=== PATIENT | female | born 1955 | race Caucasian/White ===

== ENCOUNTER 2018-10-08 10:40 | Emergency (ER) | payer MEDICARE, BC ==
[2018-10-08 10:53] VITALS: BP 142/79; PULSE 79; RESP 18; TEMP 98
[2018-10-08] MEDS ORDERED: MORPHINE SULFATE 4 MG/ML SYRINGE IM STA (11:14)
--- NOTE | 2018-10-08 11:24 | ED ---
Upper Extremity HPI - General Chief Complaint: Extremity Injury, Upper Stated Complaint: fall/arm pain Time Seen by Provider: 10/08/18 10:54 Source: patient, RN notes reviewed Mode of arrival: ambulatory Limitations: no limitations - History of Present Illness Initial Comments: 62-year-old female presented to emergency department with chief complaint of left arm pain. Patient states she was with her dog states that she tripped over her dog and fell onto some rocks last night. Denies any head injury. Patient complains of severe left shoulder pain is unable to move it. Patient denies any paresthesias. Patient denies any wrist, forearm pain. - Related Data Home Medications Medication Instructions Recorded Confirmed HYDROcodone/APAP 5-325MG [[place] 1 tab PO Q8H PRN 12/17/15 12/17/15 5-325] Metoprolol Tartrate [Lopressor] 25 mg PO BID 12/17/15 12/17/15 Omeprazole 40 mg PO BID 12/17/15 12/17/15 Simvastatin [Zocor] 40 mg PO HS 12/17/15 12/17/15 Warfarin [Coumadin] 1 mg PO SUMOTUWETHSA 12/17/15 12/17/15 Warfarin [Coumadin] 1.5 mg PO FR 12/17/15 12/17/15 Zolpidem [Ambien] 5 mg PO HS PRN 12/17/15 12/17/15 Previous Rx's Medication Instructions Recorded Albuterol Inhaler [Ventolin Hfa 1 - 2 puff INHALATION Q6HR #1 12/17/15 Inhaler] inhaler Albuterol Nebulized [Ventolin 2.5 mg INHALATION Q4H #60 nebu 12/17/15 Nebulized] Levofloxacin [Levaquin] 750 mg PO DAILY #7 tab 12/17/15 predniSONE 50 mg PO DAILY #5 tab 12/17/15 Allergies Allergy/AdvReac Type Severity Reaction Status Date / Time mold Allergy Wheezing Verified 07/23/16 17:05 Review of Systems ROS Statement: Those systems with pertinent positive or pertinent negative responses have been documented in the HPI. ROS Other: All systems not noted in ROS Statement are negative. Past Medical History Past Medical History: Asthma, Coronary Artery Disease (CAD), CVA/TIA, GERD/Reflux, Hypertension Additional Past Medical History / Comment(s): back pain History of Any Multi-Drug Resistant Organisms: None Reported Additional Past Surgical History / Comment(s): carotid endarectomy, abdominal, heart valve Past Psychological History: No Psychological Hx Reported Smoking Status: Current every day smoker Past Alcohol Use History: None Reported Past Drug Use History: None Reported General Exam Limitations: no limitations General appearance: alert, in no apparent distress Head exam: Present: atraumatic, normocephalic, normal inspection Neck exam: Present: normal inspection, full ROM. Absent: tenderness, meningismus, lymphadenopathy Respiratory exam: Present: normal lung sounds bilaterally. Absent: respiratory distress, wheezes, rales, rhonchi, stridor Cardiovascular Exam: Present: regular rate, normal rhythm, normal heart sounds. Absent: systolic murmur, diastolic murmur, rubs, gallop, clicks Extremities exam: Present: other (Left shoulder decreased range of motion, swelling, tenderness with palpation no distal humeral tenderness no forearm tenderness. Wrist is neurovascularly intact.) Skin exam: Present: warm, dry, intact, normal color. Absent: rash Course Vital Signs 10/08/18 10:50 Temperature 98 F Pulse Rate 79 Respiratory 18 Rate Blood Pressure 142/79 O2 Sat by Pulse 96 Oximetry - Reevaluation(s) Reevaluation #1: 10/08/18 11:23 Patient advised to remove ring on her hand. Patient states it is too tight removed. I did advise her that this could worsen causing neurovascular, rash to her finger advised that we remove a cut it off. Patient declines. Medical Decision Making - Medical Decision Making 62-year-old female presented for fall, left shoulder injury. Patient has a fracture of the humeral head, neck. Patient will be placed in a sling and follow-up with orthopedics tomorrow return parameters were discussed. Disposition Clinical Impression: Left humeral fracture Disposition: HOME SELF-CARE Condition: Stable Instructions (If sedation given, give patient instructions): Arm Fracture in Adults (ED) Additional Instructions: Please wear sling and follow-up with orthopedics. Please return to the Emergency Department if symptoms worsen or any other concerns. Is patient prescribed a controlled substance at d/c from ED?: No Referrals: Gemini Manuel MD [Primary Care Provider] - 1-2 days Giovani Dowd MD [STAFF PHYSICIAN] - 1-2 days Time of Disposition: 12:02
[2018-10-08] MEDS ORDERED: ACET/COD 300 MG/30 MG STARTER PACK 6 TAB BTL PO STA (11:48)
--- NOTE | 2018-10-08 11:56 | XR ---
Left shoulder HISTORY: Trauma and pain 3 views of the left shoulder There is an impacted proximal left humeral fracture. No dislocation. Left lung apex as visualized is normal. IMPRESSION: Proximal humeral fracture.
== END 2018-10-08 12:10 | disposition home or self-care (01) ==
LOC: EC 10:40
DX: S42.292A Other displaced fracture of upper end of left humerus, initial encounter for closed fracture (principal); I10 Essential (primary) hypertension; I25.10 Atherosclerotic heart disease of native coronary artery without angina pectoris; K21.9 Gastro-esophageal reflux disease without esophagitis; F17.200 Nicotine dependence, unspecified, uncomplicated; Z91.048 Other nonmedicinal substance allergy status; Z79.01 Long term (current) use of anticoagulants; Z79.899 Other long term (current) drug therapy; Z86.73 Personal history of transient ischemic attack (TIA), and cerebral infarction without residual deficits; Z95.2 Presence of prosthetic heart valve; W01.0XXA Fall on same level from slipping, tripping and stumbling without subsequent striking against object, initial encounter
CPT/HCPCS: 73030; 99283; 96372; J2270

== ENCOUNTER → 2019-02-22 | Outpatient (CLI) | payer MEDICARE ==
--- NOTE | 2019-02-22 15:35 | XR ---
Left shoulder HISTORY: Trauma 3-4 months prior, pain 3 views of the left shoulder correlated to left shoulder 10/08/2018 The previously identified fracture of the proximal left humerus is again noted, there is been some in terval healing. Persistent lucency present at the inferior margin of the neck of the left humerus is noted on the frontal view. No dislocation. Bone mineralization is reduced. Left lung apex as visualiz ed is normal. IMPRESSION: There has been some interval healing of patient's proximal left humeral fracture
== END | disposition home or self-care (01) ==
LOC: RADXRMAIN 09:42
PROVIDERS: ATTEND Internal Medicine
DX: S42.202D Unspecified fracture of upper end of left humerus, subsequent encounter for fracture with routine healing (principal)

== ENCOUNTER → 2019-02-22 | Outpatient (CLI) | payer MEDICARE, BC ==
--- NOTE | 2019-02-22 13:28 | US ---
EXAMINATION TYPE: US liver DATE OF EXAM: 02/22/2019 COMPARISON: NONE CLINICAL HISTORY: R94.5 Abnormal liver function tests. abnormal labs, NPO. Patient states she still has GB. EXAM MEASUREMENTS: Liver Length: 16.4 cm CBD: 0.5 cm CHD: 0.5 cm Right Kidney: 8.2 x 4.5 x 4.4 cm Pancreas: Tail obscured by overlying bowel gas Liver: wnl Gallbladder: Obscured by overlying bowel gas and not visualized Evidence for sonographic Toribio's sign: neg CBD: wnl CHD: wnl Right Kidney: wnl IMPRESSION: The liver appears homogeneous in echotexture despite abnormal liver function tests. Gallb ladder is not visualized, possibly due to contracted state. HIDA scan could be considered if there is concern for gallbladder pathology clinically.
== END | disposition home or self-care (01) ==
LOC: RADUSWWP 09:18
PROVIDERS: ATTEND Internal Medicine
DX: R94.5 Abnormal results of liver function studies (principal)
CPT/HCPCS: 76705

== ENCOUNTER 2019-06-18 17:11 | Inpatient (IN) | payer MEDICARE, BC ==
[2019-06-18] MEDS ORDERED: HYDROcodone/APAP 5-325MG 1 EACH TAB PO STA (18:20)
--- NOTE | 2019-06-18 18:23 | ED ---
Fall HPI - General Source: patient Mode of arrival: wheelchair <Bello Miranda - Last Filed: 06/18/19 20:08> <Mil Leal - Last Filed: 06/18/19 20:11> - General Chief Complaint: Fall Stated Complaint: Fell out of bed hip pain Time Seen by Provider: 06/18/19 18:01 - History of Present Illness Initial Comments: Patient is 63-year-old female presenting to emergency Department with a chief complaint of a fall. Patient reports she rolled out of bed and fell on the left side or body. Patient reports most of the pain is located at the left hip. Patient reports limited range of motion the left hip. Patient reports the pain is exacerbated with any motion and alleviated at rest. Patient reports she is unable to ambulate. Patient reports the pain is an 8 and throbbing. Patient denies any bruising or swelling at the left hip. Patient denies any head injury, loss of consciousness at time of incident, nausea or vomiting. Patient denies taking medication to alleviate the symptoms. Patient is on blood thinners. (Bello Miranda) - Related Data Home Medications Medication Instructions Recorded Confirmed HYDROcodone/APAP 5-325MG [[place] 1 tab PO Q8H PRN 12/17/15 12/17/15 5-325] Metoprolol Tartrate [Lopressor] 25 mg PO BID 12/17/15 12/17/15 Omeprazole 40 mg PO BID 12/17/15 12/17/15 Simvastatin [Zocor] 40 mg PO HS 12/17/15 12/17/15 Warfarin [Coumadin] 1 mg PO SUMOTUWETHSA 12/17/15 12/17/15 Warfarin [Coumadin] 1.5 mg PO FR 12/17/15 12/17/15 Zolpidem [Ambien] 5 mg PO HS PRN 12/17/15 12/17/15 Previous Rx's Medication Instructions Recorded Albuterol Inhaler [Ventolin Hfa 1 - 2 puff INHALATION Q6HR #1 12/17/15 Inhaler] inhaler Albuterol Nebulized [Ventolin 2.5 mg INHALATION Q4H #60 nebu 12/17/15 Nebulized] Levofloxacin [Levaquin] 750 mg PO DAILY #7 tab 12/17/15 predniSONE 50 mg PO DAILY #5 tab 12/17/15 Allergies Allergy/AdvReac Type Severity Reaction Status Date / Time mold Allergy Wheezing Verified 06/18/19 17:16 Review of Systems ROS Other: All systems not noted in ROS Statement are negative. <Bello Miranda - Last Filed: 06/18/19 20:08> ROS Other: All systems not noted in ROS Statement are negative. <Mil Leal - Last Filed: 06/18/19 20:11> ROS Statement: Those systems with pertinent positive or pertinent negative responses have been documented in the HPI. Past Medical History Past Medical History: Asthma, Coronary Artery Disease (CAD), CVA/TIA, GERD/Reflux, Hypertension Additional Past Medical History / Comment(s): back pain History of Any Multi-Drug Resistant Organisms: None Reported Additional Past Surgical History / Comment(s): carotid endarectomy, abdominal, heart valve Past Psychological History: No Psychological Hx Reported Smoking Status: Current every day smoker Past Alcohol Use History: None Reported Past Drug Use History: None Reported <Bello Miranda - Last Filed: 06/18/19 20:08> General Exam Limitations: no limitations General appearance: alert, in no apparent distress Head exam: Present: atraumatic, normocephalic, normal inspection Eye exam: Present: normal appearance Pupils: Present: normal accommodation ENT exam: Present: normal exam, normal oropharynx, mucous membranes moist, TM's normal bilaterally, normal external ear exam Neck exam: Present: normal inspection, full ROM Respiratory exam: Present: normal lung sounds bilaterally Cardiovascular Exam: Present: regular rate, normal rhythm, normal heart sounds Extremities exam: Present: normal inspection, tenderness (Tenderness at the left hip, proximal anterior aspect of the left lower extremity.), normal capillary refill, other (+2 ulnar and radial pulses bilaterally. +2 dorsalis pedis and posterior tibialis bilaterally. Patient is neruovascularly intact in the left lower [place].). Absent: full ROM (Unable to move left lower extremity), pedal edema, joint swelling, calf tenderness (Negative Homans bilaterally.) Back exam: Present: normal inspection, full ROM Neurological exam: Present: alert, oriented X3 Psychiatric exam: Present: normal affect, normal mood Skin exam: Present: warm, dry, intact, normal color <Bello Miranda - Last Filed: 06/18/19 20:08> Course <Mil Leal - Last Filed: 06/18/19 20:11> Vital Signs 06/18/19 06/18/19 17:18 19:33 Temperature 98 F Pulse Rate 83 85 Respiratory 18 18 Rate Blood Pressure 161/84 175/92 O2 Sat by Pulse 96 94 L Oximetry - Reevaluation(s) Reevaluation #1: 06/18/19 20:11 PA supervision: I personally evaluate this case and did discuss the case with Dr. Toribio as well as Dr. Stanton. Patient will be admitted. (Mil Leal) Medical Decision Making - Lab Data Result diagrams: 06/18/19 18:57 06/18/19 18:57 <Bello Miranda - Last Filed: 06/18/19 20:08> - Lab Data Result diagrams: 06/18/19 18:57 06/18/19 18:57 <Mil Leal - Last Filed: 06/18/19 20:11> - Medical Decision Making Patient is 63-year-old female presenting to the emergency room with a chief complaint of a fall. Physical examination is indicative of limited range of motion and pain on the left hip area. Patient neurovascularly intact in the left lower extremity. Patient is on blood thinners. Brain CT negative for acute pathologies. X-rays of the femur indicated a left lower leg fracture. Patient given analgesia. Labs indicated mild leukocytosis with elevated coags due to blood thinners. Patient will be admitted for further medical management. Case discussed with Dr. Leal. Admitting physician is Dr. Toribio. Dr. Manuel consulted. (Bello Miranda) - Lab Data Lab Results 06/18/19 06/18/19 06/18/19 Range/Units 18:57 18:57 18:57 WBC 14.7 H (3.8-10.6) k/uL RBC 4.61 (3.80-5.40) m/uL Hgb 13.0 (11.4-16.0) gm/dL Hct 40.1 (34.0-46.0) % MCV 87.0 (80.0-100.0) fL MCH 28.3 (25.0-35.0) pg MCHC 32.5 (31.0-37.0) g/dL RDW 15.5 (11.5-15.5) % Plt Count 175 (150-450) k/uL PT 14.3 H (9.0-12.0) sec INR 1.4 H (<1.2) APTT 32.4 H (22.0-30.0) sec Sodium 138 (137-145) mmol/L Potassium 4.0 (3.5-5.1) mmol/L Chloride 107 (98-107) mmol/L Carbon Dioxide 22 (22-30) mmol/L Anion Gap 9 mmol/L BUN 16 (7-17) mg/dL Creatinine 0.63 (0.52-1.04) mg/dL Est GFR (CKD-EPI)AfAm >90 (>60 ml/min/1.73 sqM) Est GFR (CKD-EPI)NonAf >90 (>60 ml/min/1.73 sqM) Glucose 133 H (74-99) mg/dL Calcium 9.2 (8.4-10.2) mg/dL Total Bilirubin 0.4 (0.2-1.3) mg/dL AST 38 H (14-36) U/L ALT 48 (9-52) U/L Alkaline Phosphatase 99 (38-126) U/L Total Protein 7.4 (6.3-8.2) g/dL Albumin 4.4 (3.5-5.0) g/dL Disposition Is patient prescribed a controlled substance at d/c from ED?: No Time of Disposition: 20:10 <Bello Miranda - Last Filed: 06/18/19 20:08> <Mil Leal - Last Filed: 06/18/19 20:11> Clinical Impression: Fracture of femoral neck, left, Fall Disposition: ADMITTED IP TO THIS HOSP Condition: Stable Instructions (If sedation given, give patient instructions): Fall Prevention (ED) Additional Instructions: Patient will be admitted Referrals: Gemini Manuel MD [Primary Care Provider] - 1-2 days
--- NOTE | 2019-06-18 18:53 | CT ---
EXAMINATION TYPE: CT brain rodríguez phillips DATE OF EXAM: 06/18/2019 COMPARISON: None HISTORY: fell out of bed today CT DLP: 1298.[address] of the brain was performed. The ventricles, basal cisterns and sulci overlying the cerebral convexities demonstrate moderate enla rgement. Right frontal insult noted. There is no evidence for intracranial hemorrhage or sulcal effacement. There is decreased attenuatio n about the periventricular white matter and deep white matter of both cerebral hemispheres, compatib le with chronic small vessel ischemia. No mass effects are seen. If symptoms persist consider MRI. Osseous calvarium is intact. IMPRESSION: 1. Age related atrophic and chronic small vessel ischemic change without acute intracranial process seen at this time. CT Cervical Spine: Unenhanced CT of the cervical spine was performed with bone and soft tissue window settings submitted . Coronal and sagittal reconstruction is obtained. There is normal alignment and prevertebral soft tissues. No evidence for acute cervical fracture . Scattered degenerative disc disease and spondylosis. Biapical scarring. IMPRESSION: 1. No evidence for acute fracture or subluxation of the cervical spine.
--- NOTE | 2019-06-18 18:56 | XR ---
EXAMINATION TYPE: XR pelvis AP view, XR femur LT DATE OF EXAM: 06/18/2019 CLINICAL HISTORY: pain TECHNIQUE: AP and frogleg views of the left hip are obtained. COMPARISON: None. FINDINGS: Left femoral neck fracture noted. Mild cranial migration of the distal fracture component. No additional fractures identified this time. Mild degenerative left hip joint space narrowing. IMPRESSION: 1. Left femoral neck fracture.
[2019-06-18 19:09] LABS: HCT 40.1 % (34.0-46.0); MCH 28.3 pg (25.0-35.0); MCHC 32.5 g/dL (31.0-37.0); Platelet Count 175 k/uL (150-450); RBC 4.61 m/uL (3.80-5.40); RDW 15.5 % (11.5-15.5); WBC 14.7 k/uL (3.8-10.6)
[2019-06-18 19:19] LABS: ALT 48 U/L (9-52); AST 38 U/L (14-36); African American GFR (CKD) >90 (>60 ml/min/1.73 sqM); Albumin 4.4 g/dL (3.5-5.0); Alkaline Phosphatase 99 U/L (38-126); Anion Gap 9 mmol/L; Blood Urea Nitrogen 16 mg/dL (7-17); Calcium 9.2 mg/dL (8.4-10.2); Carbon Dioxide 22 mmol/L (22-30); Chloride 107 mmol/L (98-107); Glucose 133 mg/dL (74-99); Non-African American GFR(CKD) >90 (>60 ml/min/1.73 sqM); Sodium 138 mmol/L (137-145); Total Bilirubin 0.4 mg/dL (0.2-1.3); Total Protein 7.4 g/dL (6.3-8.2)
[2019-06-18] MEDS ORDERED: MORPHINE SULFATE 4 MG/ML SYRINGE IVP STA (19:36)
[2019-06-18 19:46] LABS: INR 1.4 (<1.2)
[2019-06-18 19:47] LABS: Partial Thromboplastin Time 32.4 sec (22.0-30.0); Prothrombin Time 14.3 sec (9.0-12.0)
[2019-06-18] MEDS ORDERED: NALOXONE 0.4 MG/ML 1 ML VIAL IV PRN (20:06)
[2019-06-18] MEDS ORDERED: ALPRAZolam 0.25 MG TAB PO PRN (20:06)
[2019-06-18] MEDS: HYDROmorphone 1 MG/ML 1 ML SYRINGE IVP PRN (21:52)
[2019-06-18] MEDS: SODIUM CHLORIDE 0.9% 1,000 ML IV SCH (21:53)
[2019-06-19] MEDS: HYDROmorphone 1 MG/ML 1 ML SYRINGE IVP PRN ×2 (01:33→07:11)
[2019-06-19] MEDS: MORPHINE SULFATE 4 MG/ML SYRINGE IV PRN (04:56)
[2019-06-19] MEDS ORDERED: ZOLPIDEM 5 MG TAB PO PRN (08:26)
[2019-06-19 09:41] LABS: Basophils # (A) 0.1 k/uL (0-0.2); Basophils % (A) 1 %; Eosinophils # (A) 0.1 k/uL (0-0.7); Eosinophils % (A) 1 %; HCT 42.5 % (34.0-46.0); HGB 13.6 gm/dL (11.4-16.0); Lymphocytes # (A) 1.3 k/uL (1.0-4.8); Lymphocytes % (A) 12 %; MCH 28.1 pg (25.0-35.0); MCV 87.8 fL (80.0-100.0); Mean Platelet Volume 10.1; Monocytes # (A) 0.9 k/uL (0-1.0); Monocytes % (A) 8 %; Neutrophils # (A) 7.9 k/uL (1.3-7.7); Neutrophils % (A) 76 %; Platelet Count 177 k/uL (150-450); RBC 4.84 m/uL (3.80-5.40); RDW 15.5 % (11.5-15.5); WBC 10.5 k/uL (3.8-10.6)
[2019-06-19 09:52] LABS: INR 1.4 (<1.2)
--- NOTE | 2019-06-19 09:56 | P.HPOR ---
History of Present Illness H&P Date: 06/19/19 Chief Complaint: Left hip fracture Patient is 63-year-old female seen at bedside this morning regarding her left hip pain and femoral neck fracture. She was admitted through the ED last evening after sustaining a fall at home. Patient reports she was moving some furniture and fell to her left side yesterday. She was unable to ambulate and brought to the ED. She continues to have pain at the left hip as expected. She denies numbness or tingling or calf pain. Patient denies any head injury, loss of consciousness at time of incident, nausea or vomiting. She has a history of stroke and states the left side was affected. She had been ambulating without assistance prior to fall. She is on anticoagulants. Review of Systems All systems: negative Constitutional: Denies chills, Denies fever Eyes: denies blurred vision, denies pain Ears, nose, mouth and throat: Denies headache, Denies sore throat Cardiovascular: Denies chest pain, Denies shortness of breath Respiratory: Denies cough Gastrointestinal: Denies abdominal pain, Denies diarrhea, Denies nausea, Denies vomiting Genitourinary: Denies dysuria, Denies hematuria Musculoskeletal: Denies myalgias Integumentary: Denies pruritus, Denies rash Neurological: Denies numbness, Denies weakness Psychiatric: Denies anxiety, Denies depression Endocrine: Denies fatigue, Denies weight change Past Medical History Past Medical History: Asthma, Coronary Artery Disease (CAD), CVA/TIA, GERD/Reflux Additional Past Medical History / Comment(s): back pain History of Any Multi-Drug Resistant Organisms: None Reported Additional Past Surgical History / Comment(s): carotid endarectomy, abdominal, heart valve Past Psychological History: No Psychological Hx Reported Smoking Status: Current every day smoker Past Alcohol Use History: None Reported Past Drug Use History: None Reported - Past Family History Mother History Unknown: Yes Medications and Allergies Home Medications Medication Instructions Recorded Confirmed Type HYDROcodone/APAP 5-325MG [[place] 1 tab PO Q8H PRN 12/17/15 06/18/19 History 5-325] Omeprazole 40 mg PO BID 12/17/15 06/18/19 History Simvastatin [Zocor] 40 mg PO HS 12/17/15 06/18/19 History Zolpidem [Ambien] 5 mg PO HS PRN 12/17/15 06/18/19 History Warfarin Sodium 5 mg PO SUMOTUWETHSA 06/18/19 06/18/19 History Warfarin [Coumadin] 7.5 mg PO FR 06/18/19 06/18/19 History Allergies Allergy/AdvReac Type Severity Reaction Status Date / Time mold Allergy Wheezing Verified 06/18/19 20:29 Physical Examination Inspection of the left lower extremity shows a shortened externally rotated left leg. There is no wounds or erythema. Hip range of motion is not tested due to the fracture. Motor and sensation are grossly intact throughout the left lower extremity including the knee, ankle and foot. There is no deformity and no pain with range of motion at the knee, ankle and foot. The calf is soft and nontender. 2+ dorsalis pedis pulse and less than 2 second capillary refill is present. Results X-rays of the pelvis and left hip show a left femoral neck fracture with some shortening. - Labs Labs: Abnormal Lab Results - Last 24 Hours (Table) 06/18/19 06/18/19 06/18/19 Range/Units 18:57 18:57 18:57 WBC 14.7 H (3.8-10.6) k/uL Neutrophils # (1.3-7.7) k/uL PT 14.3 H (9.0-12.0) sec INR 1.4 H (<1.2) APTT 32.4 H (22.0-30.0) sec Glucose 133 H (74-99) mg/dL AST 38 H (14-36) U/L 06/19/19 Range/Units 09:03 WBC (3.8-10.6) k/uL Neutrophils # 7.9 H (1.3-7.7) k/uL PT (9.0-12.0) sec INR (<1.2) APTT (22.0-30.0) sec Glucose (74-99) mg/dL AST (14-36) U/L H & H 06/18/19 06/19/19 Range/Units 18:57 09:03 Hgb 13.0 13.6 (11.4-16.0) gm/dL Hct 40.1 42.5 (34.0-46.0) % Coagulation 06/18/19 Range/Units 18:57 INR 1.4 H (<1.2) Result Diagrams: 06/19/19 09:03 06/18/19 18:57 - Diagnostic results Hip x-ray: report reviewed, image reviewed Assessment and Plan (1) Fracture of femoral neck, left Narrative/Plan: Plan will be to proceed with surgical intervention tomorrow including a left hip hemiarthroplasty for her left femoral neck fracture. The procedure and possible risks have been discussed with the patient. She desires to proceed. The procedure and consent has been ordered. She is to be nothing by mouth after midnight. We'll request preoperative medical clearance. Current Visit: Yes Status: Acute Priority: Medium Code(s): S72.002A - FRACTURE OF UNSP PART OF NECK OF LEFT FEMUR, INIT SNOMED Code(s): 2797250 Time with Patient: Less than 30
[2019-06-19 09:58] LABS: ALT 43 U/L (9-52); AST 32 U/L (14-36); African American GFR (CKD) >90 (>60 ml/min/1.73 sqM); Alkaline Phosphatase 85 U/L (38-126); Anion Gap 8 mmol/L; Blood Urea Nitrogen 11 mg/dL (7-17); Calcium 9.1 mg/dL (8.4-10.2); Carbon Dioxide 24 mmol/L (22-30); Chloride 105 mmol/L (98-107); Glucose 119 mg/dL (74-99); Non-African American GFR(CKD) >90 (>60 ml/min/1.73 sqM); Potassium 3.8 mmol/L (3.5-5.1); Sodium 137 mmol/L (137-145); Total Bilirubin 0.6 mg/dL (0.2-1.3)
[2019-06-19] MEDS: SODIUM CHLORIDE 0.9% 1,000 ML IV SCH ×2 (10:43→20:39)
--- NOTE | 2019-06-19 10:45 | P.CONS ---
History of Present Illness - Reason for Consult Consult date: 06/19/19 Medical management - Chief Complaint Fall with left femur neck fracture - History of Present Illness This is a 63-year-old female patient who presented to the ER after sustaining a fall. Patient reports that she was moving around furniture when she slipped out of bed and fell onto the left side of her body. Patient denies any loss of consciousness prior to episode. Patient denies any other injuries to head or neck. X-ray of pelvis and femur completed showing left femoral neck fracture. Pelvis x-ray completed showing left femoral neck fracture. CT of head and spine completed showing age-related atrophic and chronic small vessel ischemic changes without acute intracranial process seen at this time. No evidence for acute fracture or subluxation of the cervical spine. Patient does have a past medical history of asthma, coronary artery disease, CVA, GERD, nicotine dependence and heart valve replacement in which she is managed on Coumadin. Patient reports that she follows with her dual rate dealer regularly but unable to recall when her last 2-D echo or stress test was. Patient reports that her valve replacement was possibly 10 years ago. INR on admission 1.4. Coumadin currently on hold. Due to patient's cardiac history will consult cardiology services for cardiac clearance prior to surgery. 2-D echo has been ordered. Patient having some discomfort to left hip area. Patient denies chest pain or shortness of breath. Patient denies nausea vomiting or diarrhea. Patient denies any urinary burning or frequency. Patient denies any recent illness. Patient denies any s ignificant history of blood clots to legs or lungs. Patient denies history of irregular heart rhythm. Review of Systems Please refer to HPI otherwise unremarkable Past Medical History Past Medical History: Asthma, Coronary Artery Disease (CAD), CVA/TIA, GERD/Reflux Additional Past Medical History / Comment(s): back pain History of Any Multi-Drug Resistant Organisms: None Reported Additional Past Surgical History / Comment(s): carotid endarectomy, abdominal, heart valve Past Psychological History: No Psychological Hx Reported Smoking Status: Current every day smoker Past Alcohol Use History: None Reported Past Drug Use History: None Reported - Past Family History Mother History Unknown: Yes Medications and Allergies Home Medications Medication Instructions Recorded Confirmed Type HYDROcodone/APAP 5-325MG [[place] 1 tab PO Q8H PRN 12/17/15 06/18/19 History 5-325] Omeprazole 40 mg PO BID 12/17/15 06/18/19 History Simvastatin [Zocor] 40 mg PO HS 12/17/15 06/18/19 History Zolpidem [Ambien] 5 mg PO HS PRN 12/17/15 06/18/19 History Warfarin Sodium 5 mg PO SUMOTUWETHSA 06/18/19 06/18/19 History Warfarin [Coumadin] 7.5 mg PO FR 06/18/19 06/18/19 History Allergies Allergy/AdvReac Type Severity Reaction Status Date / Time mold Allergy Wheezing Verified 06/18/19 20:29 Physical Exam Vitals: Vital Signs Temp Pulse Pulse Resp BP BP Pulse Ox 06/19/19 07:00 98.3 F 89 18 169/76 94 L 06/19/19 00:54 98.3 F 86 18 186/97 97 06/18/19 21:57 98.4 F 94 16 180/95 95 06/18/19 20:58 99.8 F H 88 16 163/78 95 06/18/19 19:33 85 18 175/92 94 L 06/18/19 17:18 98 F 83 18 161/84 96 Intake and Output 06/18/19 06/19/19 06/19/19 22:59 06:59 14:59 Intake Total 225 Output Total 700 Balance -475 Intake: Intake, IV Titration 225 Amount Sodium Chloride 0.9% 1, 225 000 ml @ 75 mls/hr IV . [id number] [facility] Rx#:[id number] Output: Urine 700 Other: Voiding Method Indwelling Catheter Indwelling Catheter Indwelling Catheter Weight 69.4 kg Head normocephalic Neck supple Lungs clear to auscultation bilaterally no wheezing or crackles Heart regular rate and rhythm S1-S2, no rub or gallop Abdomen is soft nontender nondistended positive bowel sounds no hepatosplenomegaly Extremities no edema. Left hip tenderness to palpation Neuro alert and orientated to 3 Results CBC & Chem 7: 06/19/19 09:03 06/19/19 09:03 Labs: Abnormal Lab Results - Last 24 Hours (Table) 06/18/19 06/18/19 06/18/19 Range/Units 18:57 18:57 18:57 WBC 14.7 H (3.8-10.6) k/uL Neutrophils # (1.3-7.7) k/uL PT 14.3 H (9.0-12.0) sec INR 1.4 H (<1.2) APTT 32.4 H (22.0-30.0) sec Glucose 133 H (74-99) mg/dL AST 38 H (14-36) U/L 06/19/19 06/19/19 06/19/19 Range/Units 09:03 09:03 09:03 WBC (3.8-10.6) k/uL Neutrophils # 7.9 H (1.3-7.7) k/uL PT 14.0 H (9.0-12.0) sec INR 1.4 H (<1.2) APTT (22.0-30.0) sec Glucose 119 H (74-99) mg/dL AST (14-36) U/L Assessment and Plan Assessment: 1. Fall with left femur neck fracture. hip x-ray completed showing left femur neck fracture. Patient has been admitted to orthopedic service and plans for left hip hemiarthroplasty for left normal neck fracture per orthopedic services 2. History of mechanical valve maintained on Coumadin. Coumadin on hold. Card iology services have been consulted 2-D echo has been ordered. INR on admission 1.4. Patient to be seen and cleared by cardiology services prior to procedure 3. History of CVA 4. History of GERD 5. History of coronary artery disease 6. History of carotid endarterectomy 7. History of nicotine dependence currently half a pack a day smoker. Nicotine patch has been ordered patient educated greater than 3 minutes on smoking cessation 8. Leukocytosis. this could be secondary to fall and injury. Will order UA to rule out urinary tract infection. Patient to be seen by cardiology services prior to clearance for surgery. Discussed case with Nohemi MELENDREZ per cardiology services, will attempt to obtain records. 2-D echo to be reviewed per cardiology to assess valve Thank you for this consultation we will continue to follow patient closely throughout stay Time with Patient: Greater than 30 (Greater than 60% of the total time spent in counseling and coordination of care. I performed an examination of the patient and discussed their management with the Nurse Practitioner. I have reviewed the Nurse Practitioner's notes and agree with the documented findings and plan of care)
--- NOTE | 2019-06-19 12:02 | ECHOF ---
Referral Reason:cardiac clearance. artificial valve MEASUREMENTS -------- HEIGHT: 172.7 cm WEIGHT: 69.4 kg BP: 169/76 RVIDd: 2.8 cm (< 3.3) IVSd: 1.3 cm (0.6 - 1.1) LVIDd: 4.1 cm (3.9 - 5.3) LVPWd: 1.3 cm (0.6 - 1.1) IVSs: 1.8 cm LVIDs: 2.5 cm LVPWs: 1.5 cm LA Diam: 2.9 cm (2.7 - 3.8) LAESV Index (A-L): 21.48 ml/m Ao Diam: 3.4 cm (2.0 - 3.7) MV EXCURSION: 16.095 mm (> 18.000) MV EF SLOPE: 51 mm/s (70 - 150) EPSS: 0.6 cm MV E King: 1.11 m/s MV DecT: 282 ms MV A King: 1.33 m/s MV E/A Ratio: 0.83 AV maxP.18 mmHg AV meanP.92 mmHg RAP: 5.00 mmHg RVSP: 36.29 mmHg TAPSE: 12.54 mm FINDINGS -------- Sinus rhythm. This was a technically adequate study. The left ventricular size is normal. There is mild concentric left ventricular hypertrophy. Overa ll left ventricular systolic function is normal with, an EF between 60 - 65 %. The right ventricle is normal in size. Normal LA size by volume 22+/-6 ml/m2. The right atrium is normal in size. Interatrial and interventricular septum intact. Peak/mean gradient across the Aortic Valve is 59.18mmHg / 28.92mmHg. There is trivial loly-prosthet ic regurgitation of the Mechanical aortic valve. The findings are consistent with stenosis of the Me chanical prosthetic aortic valve. The mitral valve leaflets are mildly thickened. There is trace mitral regurgitation. Mild tricuspid regurgitation present. There is mild pulmonary hypertension. The right ventricular systolic pressure, as measured by Doppler, is 36.29mmHg. The pulmonic valve was not well visualized. The aortic root size is normal. Normal inferior vena cava with normal inspiratory collapse consistent with estimated right atrial pre ssure of 5 mmHg. There is no pericardial effusion. CONCLUSIONS -------- 1. Sinus rhythm. 2. This was a technically adequate study. 3. The left ventricular size is normal. 4. There is mild concentric left ventricular hypertrophy. 5. Overall left ventricular systolic function is normal with, an EF between 60 - 65 %. 6. The right ventricle is normal in size. 7. Normal LA size by volume 22+/-6 ml/m2. 8. The right atrium is normal in size. 9. Interatrial and interventricular septum intact. 10. Peak/mean gradient across the Aortic Valve is 59.18mmHg / 28.92mmHg. 11. There is trivial loly-prosthetic regurgitation of the bioprosthetic aortic valve. 12. The findings are consistent with stenosis of the prosthetic aortic valve. 13. The mitral valve leaflets are mildly thickened. 14. There is trace mitral regurgitation. 15. Mild tricuspid regurgitation present. 16. There is mild pulmonary hypertension. 17. The right ventricular systolic pressure, as measured by Doppler, is 36.29mmHg. 18. The pulmonic valve was not well visualized. 19. The aortic root size is normal. 20. Normal inferior vena cava with normal inspiratory collapse consistent with estimated right atrial pressure of 5 mmHg. 21. There is no pericardial effusion. CONTRACT CLERK: Violeta Macdonald RDCS
[2019-06-19] MEDS: ONDANSETRON 4 MG/2 ML VIAL IVP PRN (12:39)
[2019-06-19] MEDS: HYDROmorphone 0.5 MG/0.5 ML SYRINGE IVP PRN ×3 (13:18→20:38)
[2019-06-19] MEDS: ENOXAPARIN 80 MG/0.8 ML SYRINGE SQ SCH ×2 (13:22→20:37)
[2019-06-19] MEDS ORDERED: MD COMMUNICATION TO PHARMACY 1 EACH MISC PO PRN ×2 (14:20→14:30)
--- NOTE | 2019-06-19 14:21 | P.CRDCN ---
History of Present Illness History of present illness: HISTORY OF PRESENTING ILLNESS This is a pleasant 63-year-old female past medical history significant for valvular heart disease status post mechanical aortic valve replacement appr oximately 15 years ago, CVA, peripheral vascular disease status post bilateral carotid endarterectomy, dyslipidemia and chronic nicotine dependence. She presented with fall. She follows in the office with a tree shear operator out of [place], name unknown. We have been asked to see him in consultation for preoperative evaluation. She was brought into the emergency department by family after rolling out of bed and falling on the left side of her body. She denies loss of consciousness or syncope. Imaging reveals a left femoral neck fracture. She has been seen in consultation by orthopedic services and is scheduled to undergo a left hip hemiarthroplasty tomorrow. She is seen and examined resting comfortably lying completely flat in bed with sister and [id number] at the bedside. Most of the information is obtained from the family as the patient has baseline altered mental status secondary to CVA. She denies symptoms of chest discomfort, shortness of breath, dizziness or palp itations. She states she is newly moved to [place] and established so far with Dr. Manuel who is managing her Coumadin dosing. Echocardiogram obtained reveals preserved LV systolic function with ejection fraction 60-65%, stenotic mechanical prosthetic valve, mean gradient across the valve of 28 mmHg, mild TR and mild pulmonary hypertension with an RVSP of 36 mmHg. DIAGNOSTICS No EKG obtained on admission. No chest x-ray obtained on admission. X-ray of the left femur reveals a left femoral neck fracture. CT of the C-spine is negative for injury or subluxation of the cervical spine, age-related atrophic and chronic small vessel ischemic change without acute intracranial process of membrane. Laboratory reviewed, WBC on admission 14.7 repeat today 10.5, hemoglobin 13.6, platelets 177, INR 1.4, sodium 137, potassium 3.8, creatinine 0.53. Current cardiac medications include Coumadin and atorvastatin. REVIEW OF SYSTEMS At the time of my exam: CONSTITUTIONAL: Denies fever or chills. CARDIOVASCULAR: Denies chest pain, shortness of breath, orthopnea, PND or palpitations. RESPIRATORY: Denies cough. GASTROINTESTINAL: Denies abdominal pain, diarrhea, constipation, nausea or vomiting. MUSCULOSKELETAL: Denies myalgias. NEUROLOGIC: Denies numbness, tingling or weakness. ENDOCRINE: Denies fatigue, weight change, polydipsia or polyurina. GENITOURINARY: Denies burning, hematuria or urgency with micturation. HEMATOLOGIC: Denies history of anemia or bleeding. PHYSICAL EXAMINATION Blood pressure 169/76 heart rate 89 afebrile and maintaining oxygen saturaiton on room air. CONSTITUTIONAL: No apparent distress. HEENT: Head is normocephalic. Pupils are equal, round. Sclerae anicteric. Mucous membranes of the mouth are moist. No JVD. Bilateral carotid bruit. CHEST EXAMINATION: Lungs are clear to auscultation. No chest wall tenderness is noted on palpation or with deep breathing. HEART EXAMINATION: Regular rate and rhythm. S1, S2 heard. Mechanical click at the base with systolic ejection murmur, no gallops or rub. ABDOMEN: Soft, nontender. Positive bowel sounds. EXTREMITIES: 1+ peripheral pulses, no lower extremity edema and no calf tenderness. NEUROLOGIC EXAMINATION: Patient is awake, alert and oriented to self and situation with episodes of confusion. ASSESSMENT Left femoral neck fracture status post fall Hypertension Valvular heart disease status post mechanical aortic valve replacement on long- term anticoagulation with Coumadin Peripheral vascular disease status post bilateral carotid endarterectomy Dyslipidemia Leukocytosis Chronic nicotine dependence PLAN Echocardiogram has been reviewed. Recommend bridging her anti-coagulation with lovenox prior to surgery and thereafter. Lovenox should be continued until 8 hrs prior to the surgery then continued thereafter for 3 days along with daily coumadin dosing to start RIVER after surgery. Check PT/INR daily. We will dose the coumadin daily. Initiate on lopressor 25 mg BID. Obtain baseline EKG and chest xray. Check bilateral carotid dopplers, this can be done after surgery as well. She is moderate risk for surgery given her multiple co-morbid conditions especially the state of her valve. Recommend cautious fluid administration and optimal blood pressure control intra-operatively. Initiate on lopressor 25 mg BID, first dose now. We will continue to follow and make recommendations accordingly. Thank you kindly for this consultation. Nurse Practitioner note has been reviewed, I agree with a documented findings and plan of care. Patient was seen and examined. Past Medical History Past Medical History: Asthma, Coronary Artery Disease (CAD), CVA/TIA, GERD/Reflux Additional Past Medical History / Comment(s): back pain History of Any Multi-Drug Resistant Organisms: None Reported Additional Past Surgical History / Comment(s): carotid endarectomy, abdominal, heart valve Past Psychological History: No Psychological Hx Reported Smoking Status: Current every day smoker Past Alcohol Use History: None Reported Past Drug Use History: None Reported - Past Family History Mother History Unknown: Yes Medications and Allergies Home Medications Medication Instructions Recorded Confirmed Type HYDROcodone/APAP 5-325MG [[place] 1 tab PO Q8H PRN 12/17/15 06/18/19 History 5-325] Omeprazole 40 mg PO BID 12/17/15 06/18/19 History Simvastatin [Zocor] 40 mg PO HS 12/17/15 06/18/19 History Zolpidem [Ambien] 5 mg PO HS PRN 12/17/15 06/18/19 History Warfarin Sodium 5 mg PO SUMOTUWETHSA 06/18/19 06/18/19 History Warfarin [Coumadin] 7.5 mg PO FR 06/18/19 06/18/19 History Allergies Allergy/AdvReac Type Severity Reaction Status Date / Time mold Allergy Wheezing Verified 06/18/19 20:29 Physical Exam Vitals: Vital Signs Temp Pulse Pulse Resp BP BP Pulse Ox 06/19/19 07:00 98.3 F 89 18 169/76 94 L 06/19/19 00:54 98.3 F 86 18 186/97 97 06/18/19 21:57 98.4 F 94 16 180/95 95 06/18/19 20:58 99.8 F H 88 16 163/78 95 06/18/19 19:33 85 18 175/92 94 L 06/18/19 17:18 98 F 83 18 161/84 96 Intake and Output 06/18/19 06/19/19 06/19/19 22:59 06:59 14:59 Intake Total 225 Output Total 700 Balance -475 Intake: Intake, IV Titration 225 Amount Sodium Chloride 0.9% 1, 225 000 ml @ 75 mls/hr IV . [id number] [facility] Rx#:[id number] Output: Urine 700 Other: Voiding Method Indwelling Catheter Indwelling Catheter Indwelling Catheter Weight 69.4 kg Results 06/19/19 09:03 06/19/19 09:03 Cardiac Enzymes 06/18/19 06/19/19 Range/Units 18:57 09:03 AST 38 H 32 (14-36) U/L Coagulation 06/18/19 06/19/19 Range/Units 18:57 09:03 PT 14.3 H 14.0 H (9.0-12.0) sec APTT 32.4 H (22.0-30.0) sec CBC 06/18/19 06/19/19 Range/Units 18:57 09:03 WBC 14.7 H 10.5 (3.8-10.6) k/uL RBC 4.61 4.84 (3.80-5.40) m/uL Hgb 13.0 13.6 (11.4-16.0) gm/dL Hct 40.1 42.5 (34.0-46.0) % Plt Count 175 177 (150-450) k/uL Comprehensive Metabolic Panel 06/18/19 06/19/19 Range/Units 18:57 09:03 Sodium 138 137 (137-145) mmol/L Potassium 4.0 3.8 (3.5-5.1) mmol/L Chloride 107 105 (98-107) mmol/L Carbon Dioxide 22 24 (22-30) mmol/L BUN 16 11 (7-17) mg/dL Creatinine 0.63 0.53 (0.52-1.04) mg/dL Glucose 133 H 119 H (74-99) mg/dL Calcium 9.2 9.1 (8.4-10.2) mg/dL AST 38 H 32 (14-36) U/L ALT 48 43 (9-52) U/L Alkaline Phosphatase 99 85 (38-126) U/L Total Protein 7.4 7.0 (6.3-8.2) g/dL Albumin 4.4 4.0 (3.5-5.0) g/dL Current Medications Generic Name Dose Route Start Last Admin Trade Name Freq PRN Reason Stop Dose Admin Hydrocodone Bitart/Acetaminophen 1 each 06/18/19 20:06 [place] 5-325 PO Q4HR PRN Moderate Pain Alprazolam 0.25 mg 06/18/19 20:06 Xanax PO Q6HR PRN Anxiety Atorvastatin Calcium 20 mg 06/19/19 21:00 Lipitor PO HS ALENA Enoxaparin Sodium 70 mg 06/19/19 12:00 06/19/19 13:22 Lovenox SQ 70 mg Q12HR ALENA Administration Hydromorphone HCl 0.5 mg 06/18/19 20:06 06/19/19 13:18 Dilaudid IVP 0.5 mg Q3HR PRN Administration Moderate Pain Hydromorphone HCl 1 mg 06/18/19 20:06 06/19/19 07:11 Dilaudid IVP 1 mg Q3HR PRN Administration Severe Pain Sodium Chloride 1,000 mls @ 75 mls/hr 06/18/19 20:15 06/19/19 10:43 Saline 0.9% IV Not Given .[id number] [facility] Morphine Sulfate 4 mg 06/18/19 20:06 06/19/19 04:56 Morphine Sulfate (Inj) IV 4 mg Q4HR PRN Administration Severe Pain Naloxone HCl 0.2 mg 06/18/19 20:06 Narcan IV Q2M PRN Opioid Reversal Nicotine 1 patch 06/20/19 09:00 Habitrol 14mg/24hr Patch TRANSDERM DAILY [facility] Ondansetron HCl 4 mg 06/18/19 20:06 06/19/19 12:39 Zofran IVP 4 mg Q8HR PRN Administration Nausea And Vomiting Pantoprazole Sodium 40 mg 06/19/19 17:30 Protonix PO AC-BID [facility] Zolpidem Tartrate 5 mg 06/19/19 08:26 Ambien PO HS PRN Insomnia Intake and Output 06/18/19 06/19/19 06/19/19 22:59 06:59 14:59 Intake Total 225 Output Total 700 Balance -475 Intake: Intake, IV Titration 225 Amount Sodium Chloride 0.9% 1, 225 000 ml @ 75 mls/hr IV . [id number] [facility] Rx#:[id number] Output: Urine 700 Other: Voiding Method Indwelling Catheter Indwelling Catheter Indwelling Catheter Weight 69.4 kg 06/19/19 09:03 06/19/19 09:03
--- NOTE | 2019-06-19 15:19 | US ---
EXAMINATION TYPE: US carotid duplex BILAT DATE OF EXAM: 06/19/2019 COMPARISON: NONE CLINICAL HISTORY: Bilateral carotid bruit. EXAM MEASUREMENTS: RIGHT: Peak Systolic Velocity (PSV) cm/sec ----- Right CCA: 34.8 ----- Right ICA: 198.8 ----- Right ECA: 95.6 ICA/CCA ratio: 5.7 RIGHT: End Diastole cm/sec ----- Right CCA: 8.9 ----- Right ICA: 47.4 ----- Right ECA: 15.4 LEFT: Peak Systolic Velocity (PSV) cm/sec ----- Left CCA: 89.1 ----- Left ICA: 180.9 ----- Left ECA: 142.7 ICA/CCA ratio: 2.0 LEFT: End Diastole cm/sec ----- Left CCA: 29.9 ----- Left ICA: 52.7 ----- Left ECA: 11.7 VERTEBRALS (direction of flow): Right Vertebral: Antegrade Left Vertebral: Antegrade Rhythm: Normal Large amounts of calcified plaque. Increased flow velocities Right ICA, Left ICA Grayscale, color Doppler, spectral Doppler imaging performed of the carotid arteries. Waveform analys is shows elevated velocities within the proximal internal right and left carotid arteries IMPRESSION: Hemodynamic significant stenosis of the proximal right internal carotid arteries bilater ally by Doppler criteria, an indirect measurement of carotid stenosis, corresponding to approximately 50-69% diameter reduction right greater than left. Criteria for Assigning % of Stenosis / Diameter reduction (Estimation based on the indirect measurements of the internal carotid artery velocities (ICA PSV). 1. Normal (no stenosis)=ICA PSV < 125 cm/s: ratio < 2.0: ICA EDV<40 cm/s. 2. Less than 50% stenosis=ICA PSV < 125 cm/s: ratio < 2.0: ICA EDV<40 cm/s. 3. 50 to 69% stenosis=ICA PSV of 125 to 230 cm/s: ration 2.0 ? 4.0: ICA EDV 40-100 cm/s. 4. Greater than 70% stenosis to near occlusion= ICA PSV > 230 cm/s: ratio > 4.0: ICA EDV > 100 cm/s. 5. Near occlusion= ICA PSV velocities may be low or undetectable: variable ratio and ICA EDV. 6. Total occlusion=unable to detect flow.
--- NOTE | 2019-06-19 15:47 | XR ---
EXAMINATION TYPE: XR chest 1V portable DATE OF EXAM: 06/19/2019 COMPARISON: Prior chest x-ray 12/17/[address] 06/18/2019 HISTORY: Preop TECHNIQUE: Single frontal view of the chest is obtained. FINDINGS: Patient is post median sternotomy and rotated. The aorta is dense. There is retrocardiac d ensity, blunting of the left costophrenic angle. No evident pneumothorax. Heart is small. Lung volume s are prominent consistent with COPD. Patient shows aortic valve replacement change, there is ascendi ng aortic aneurysm. IMPRESSION: Rotated exam. Correlate for left lower lobe atelectasis versus pneumonia and associated effusion. Ascending aortic aneurysm. Underlying emphysema. A [place] level critical message alert has been initiated for Art Toribio MD via the [employer] Critical Results System on 06/19/2019 3:44 PM. This message alert has been sent to Art Toribio MD via the preferences provided by the clinician for the receipt of Radiology Critical Findings. uMentioned e ID [id number].
[2019-06-19] MEDS: METOPROLOL TARTRATE 25 MG TAB PO SCH ×2 (17:39→20:37)
[2019-06-19] MEDS: PANTOPRAZOLE 40 MG TABLET PO SCH (17:41)
[2019-06-19] MEDS: ATORVASTATIN 20 MG TAB PO SCH (20:36)
[2019-06-20] MEDS: HYDROmorphone 1 MG/ML 1 ML SYRINGE IVP PRN (00:01)
[2019-06-20] MEDS: ONDANSETRON 4 MG/2 ML VIAL IVP PRN (01:48)
[2019-06-20] MEDS: HYDROmorphone 0.5 MG/0.5 ML SYRINGE IVP PRN ×5 (03:21→19:49)
[2019-06-20] MEDS: amLODIPine 5 MG TAB PO SCH ×2 (03:37→08:28)
[2019-06-20] MEDS: ENOXAPARIN 80 MG/0.8 ML SYRINGE SQ SCH ×3 (07:17→19:50)
[2019-06-20] MEDS: PANTOPRAZOLE 40 MG TABLET PO SCH ×2 (07:31→17:44)
[2019-06-20 08:18] LABS: INR 1.3 (<1.2); Prothrombin Time 13.1 sec (9.0-12.0)
[2019-06-20 08:26] LABS: ALT 29 U/L (9-52); AST 33 U/L (14-36); African American GFR (CKD) >90 (>60 ml/min/1.73 sqM); Albumin 3.7 g/dL (3.5-5.0); Alkaline Phosphatase 73 U/L (38-126); Anion Gap 10 mmol/L; Blood Urea Nitrogen 15 mg/dL (7-17); Carbon Dioxide 21 mmol/L (22-30); Chloride 105 mmol/L (98-107); Glucose 129 mg/dL (74-99); Non-African American GFR(CKD) >90 (>60 ml/min/1.73 sqM); Sodium 136 mmol/L (137-145); Total Protein 6.9 g/dL (6.3-8.2)
[2019-06-20] MEDS: METOPROLOL TARTRATE 25 MG TAB PO SCH ×2 (08:28→19:50)
[2019-06-20] MEDS: NICOTINE 14MG/24HR PATCH TRANSDERM SCH (08:29)
[2019-06-20 08:30] LABS: Basophils # (A) 0.3 k/uL (0-0.2); Basophils % (A) 2 %; Eosinophils # (A) 0.1 k/uL (0-0.7); Eosinophils % (A) 1 %; HCT 44.1 % (34.0-46.0); HGB 14.1 gm/dL (11.4-16.0); Lymphocytes # (A) 0.6 k/uL (1.0-4.8); Lymphocytes % (A) 5 %; MCH 28.4 pg (25.0-35.0); MCHC 31.9 g/dL (31.0-37.0); MCV 89.1 fL (80.0-100.0); Monocytes # (A) 0.9 k/uL (0-1.0); Monocytes % (A) 7 %; Neutrophils # (A) 11.2 k/uL (1.3-7.7); Neutrophils % (A) 85 %; Platelet Count 232 k/uL (150-450); RBC 4.96 m/uL (3.80-5.40); RDW 15.3 % (11.5-15.5); WBC 13.3 k/uL (3.8-10.6)
[2019-06-20 08:31] LABS: Potassium 4.1 mmol/L (3.5-5.1)
--- NOTE | 2019-06-20 10:38 | P.PN ---
Subjective Progress Note Date: 06/20/19 This is a 63-year-old female patient who presented to the ER after sustaining a fall. Patient reports that she was moving around furniture when she slipped out of bed and fell onto the left side of her body. Patient denies any loss of consciousness prior to episode. Patient denies any other injuries to head or neck. X-ray of pelvis and femur completed showing left femoral neck fracture. Pelvis x-ray completed showing left femoral neck fracture. CT of head and spine completed showing age-related atrophic and chronic small vessel ischemic changes without acute intracranial process seen at this time. No evidence for acute fracture or subluxation of the cervical spine. Patient does have a past medical history of asthma, coronary artery disease, CVA, GERD, nicotine dependence and heart valve replacement in which she is managed on Coumadin. Patient reports that she follows with her envelope folder regularly but unable to recall when her last 2-D echo or stress test was. Patient reports that her valve replacement was possibly 10 years ago. INR on admission 1.4. Coumadin currently on hold. Due to patient's cardiac history will consult cardiology services for cardiac clearance prior to surgery. 2-D echo has been ordered. Patient having some discomfort to left hip area. Patient denies chest pain or shortness of breath. Patient denies nausea vomiting or diarrhea. Patient denies any urinary burning or frequency. Patient denies any recent illness. Patient denies any significan t history of blood clots to legs or lungs. Patient denies history of irregular heart rhythm. On 06/20/2019 patient is alert and oriented 3. Patient had chest x-ray completed yesterday showing correlation for left lower lobe atelectasis first pneumonia and associated effusion. Ascending aortic aneurysm underlying emphysema. Patient also having elevated white count this a.m. 13.3. Pulmonary services have been consulted. Discussed case with cardiology GROUP SALES COORDINATOR Ca. Per pulmonary will hold off on surgery for 2 days so patient can receive antibiotics for pneumonia and possible UTI. Patient was thoroughly evaluated by cardiology service is currently on Lovenox bridging tissue bioprosthetic valve. At this time patient denies chest pain or shortness of breath. Patient denies nausea vomiting or diarrhea. Patient denies any urinary burning or frequency Objective - Vital Signs Vital signs: Vital Signs Temp 98.6 F 06/20/19 07:00 Pulse 81 06/20/19 07:00 Resp 18 06/20/19 07:00 BP 132/63 06/20/19 07:00 Pulse Ox 89 L 06/20/19 07:00 Intake & Output 06/19/19 06/20/19 06/20/19 18:59 06:59 18:59 Intake Total 900 Output Total 1250 Balance -350 Intake: Intake, IV Titration 900 Amount Sodium Chloride 0.9% 1, 900 000 ml @ 75 mls/hr IV . [id number] [facility] Rx#:[id number] Output: Urine 1250 Other: Voiding Method Indwelling Catheter Indwelling Catheter Indwelling Catheter # Voids 3 - Exam Head normocephalic Neck supple Lungs clear to auscultation bilaterally no wheezing or crackles Heart regular rate and rhythm S1-S2, no rub or gallop Abdomen is soft nontender nondistended positive bowel sounds no hepatosplenomegaly Extremities no edema. Left hip tenderness to palpation Neuro alert and orientated to 3 - Labs CBC & Chem 7: 06/20/19 07:34 06/20/19 07:34 Labs: Abnormal Lab Results - Last 24 Hours (Table) 06/20/19 06/20/19 06/20/19 Range/Units 07:34 07:34 07:34 WBC 13.3 H (3.8-10.6) k/uL Neutrophils # 11.2 H (1.3-7.7) k/uL Lymphocytes # 0.6 L (1.0-4.8) k/uL Basophils # 0.3 H (0-0.2) k/uL PT 13.1 H (9.0-12.0) sec INR 1.3 H (<1.2) Sodium 136 L (137-145) mmol/L Carbon Dioxide 21 L (22-30) mmol/L Creatinine 0.42 L (0.52-1.04) mg/dL Glucose 129 H (74-99) mg/dL Assessment and Plan Assessment: 1. Fall with left femur neck fracture. hip x-ray completed showing left femur neck fracture. Patient has been admitted to orthopedic service and plans for left hip hemiarthroplasty for left normal neck fracture per orthopedic services. At this time surgery on hold due to pulmonary request for concerns of possible pneumonia 2. History of mechanical valve maintained on Coumadin. Coumadin on hold. Patient was ago by cardiology services 2-D echo reviewed recommend bridging with anticoagulation of Lovenox prior to surgery and thereafter. Per cardiology Lovenox should be continued until 8 hours prior to surgery and continued thereafter for 3 days along with daily Coumadin dosing to start RIVER after surgery. 3. History of CVA 4. History of GERD 5. History of coronary artery disease 6. History of nicotine dependence currently half a pack a day smoker. Nicotine patch has been ordered patient educated greater than 3 minutes on smoking cessation 7. Leukocytosis. Will order UA to rule out urinary tract infection. Maintain on azithromycin and Rocephin 8. Possible pneumonia. Chest x-ray completed showing correlation for left lower lobe atelectasis or pneumonia and associated effusion. Ascending aortic aneurysm underlying emphysema. Pulmonary services have been consulted. Discussed case with pulmonary nurse practitioner. Pulmonary services would like to hold off on surgery for 2 days for patient to receive antibiotics. Rocephin and azithromycin ordered 9. Peripheral vascular disease status post bilateral carotid artery endarterectomy. Carotid Doppler completed showing hemodynamic significant stenosis of the proximal right internal carotid arteries bilaterally by Doppler criteria an indirect measurement of the carotid stenosis corresponding to approximately 50-69% diameter reduction right greater than left. DVT prophylaxis Lovenox bridging until Coumadin resumed. GI prophylaxis Protonix Patient to be seen by cardiology services prior to clearance for surgery. Discussed case with Nohemi MELENDREZ per cardiology services, will attempt to obtain records. Pulmonary services consulted for concerns of possible pneumonia. Discussed case with pulmonary would like to hold off on surgery so patient may receive 2 days of antibiotics. This was discussed with patient's nurse Stevie. Thank you for this consultation we will continue to follow patient closely throughout stay I performed an examination of the patient and discussed their management with the Nurse Practitioner. I have reviewed the Nurse Practitioner's notes and agree with the documented findings and plan of care
[2019-06-20] MEDS ORDERED: AZITHROMYCIN 500 MG in SODIUM CHLORIDE 0.9% 250 ML IVPB SCH (11:00)
--- NOTE | 2019-06-20 11:19 | CDI ---
Documentation Clarification Form Date: 06/20/2019 11:11:19 AM From: Anges SandhuArangoMASON, CCDS Admit Date: 06/18/2019 8:02:00 PM Patient Name: Yamila Llamas Visit Number: [id number] Discharge Date: ATTENTION: The Clinical Documentation Specialists (CDI) and [facility] Coding Staff appreciate your assistance in clarifying documentation. Please respond to the clarification below the line at the bottom and electronically sign. The CDI & [facility] Coding staff will review the response and follow-up if needed. Please note: Queries are made part of the Legal Health Record. If you have any questions, please contact the author of this message via ITS. Dr. Gemini Manuel: Per the 06/20 medical management progress note: "Possible pneumonia. Chest x-ray completed showing correlation for left lower lobe atelectasis or pneumonia and associated effusion. Ascending aortic aneurysm underlying emphysema. Pulmonary services have been consulted. Discussed case with pulmonary nurse practitioner. Pulmonary services would like to hold off on surgery for 2 days for patient to receive antibiotics. Rocephin and azithromycin ordered." History/Risk Factors: Asthma, CAD, CVA, GERD, Aortic valve replacement, Smoker. Clinical Indicators: Presented to ER after possible fall from bed, left femoral neck fracture, admitted for left hemiarthroplasty. Surgery held per above documentation. Patient's admission date is 06/18. CXR done on 06/29, interpreted on 06/20 by medical management. RAD: Correlate for LLL atelectasis vs pneumonia & associated effusion. AAA, underlying emphysema. UA also ordered & pending to rule out UTI. Treatment: IV Rocephin started 06/20, IV Azithromycin also ordered on 06/20. IV Morhpine & IV Dilaudid. Definition of Present on Admission (POA): A diagnosis present at the time the order for admission to inpatient status was written. For each diagnosis, documentation must be clear to determine if the condition was present at the time of the patients inpatient admission or developed during the hospital stay. Please clarify if pneumonia was POA: ____Y = Yes, the condition was present at the time of the order for inpatient admission. ____N = No, the condition was not present at the time of the order for inpatient admission. ____W = Clinically undetermined if the condition was present at the time of the order for inpatient admission. (Last Revision: Jul 2018) _Clinicall undetermined if the condition was present at the time of the order for inpatient admission MTDD
[2019-06-20] MEDS ORDERED: IPRATROPIUM-ALBUTEROL 3 ML NEB INHALATION PRN (11:28)
[2019-06-20 11:32] LABS: Appearance,Urine Cloudy (Clear); Bacteria,Urine Many /hpf; Bilirubin,Urine Negative (Negative); Blood,Urine Moderate (Negative); Color,Urine Yellow; Glucose,Urine (UA) Negative (Negative); Ketones,Urine 2+ (Negative); Leukocyte Esterase,Urine Large (Negative); Mucus,Urine Rare /hpf; Nitrite,Urine Positive (Negative); PH, Urine 5.5 (5.0-8.0); Protein,Urine 1+ (Negative); RBC,Urine 50 /hpf (0-5); Specific Gravity,Urine 1.025 (1.001-1.035)
--- NOTE | 2019-06-20 12:00 | CONS ---
CONSULTATION PULMONARY/CRITICAL CARE CONSULTATION: DATE OF CONSULTATION: 06/20/2019 This is a 63-year-old female who looks much older than her stated age. She apparently presents to the emergency department having injured herself. She apparently was moving her bed or fell out of her bed. She apparently fractured her left femur. She was admitted to the hospital and seen on June 18. We were asked to see her because of an abnormal chest x-ray suggesting some infiltrate or atelectasis at the left lung base. In addition, she states that she is mildly short of breath. She is coughing and producing thick phlegm. In addition, her urine looks to be infected as well. Anyway, we thought that it was better that the patient not have surgery. She was apparently scheduled to have surgery today on the left hip by Dr. Toribio. The patient, when she presented to the emergency room, complained of pain in the left hip and decreased motion in the left hip as well as a throbbing pain. Anyway, the pain has been relieved with pain medication. She denies a prior history of any lung issues. She did smoke for about 13 years in the past. She does not use oxygen at home. Denies COPD, asthma, chronic bronchitis, etc. The chest x-ray is evaluated. CURRENT MEDICATION: Include [place], metoprolol, omeprazole, Zocor, Coumadin, Ambien, albuterol, Levaquin and prednisone. ALLERGIES: MOLD. PAST MEDICAL HISTORY: Positive for asthma, although she never mentioned that to me when we talked to her about any lung issues. She apparently also has a history of CAD, CVA, GERD, hypertension, hyperlipidemia. She also has a history of chronic back pain. SURGICAL HISTORY: Includes carotid endarterectomy, mechanical valve surgery, and abdominal procedures. SOCIAL HISTORY: Positive for 13 years of tobacco use. She does not smoke currently. She denies any alcohol or illicit drug use. FAMILY HISTORY: Noncontributory. She states her mother and father were healthy. REVIEW OF SYSTEMS: CONSTITUTIONAL: Weakness. NEUROLOGIC: Negative. HEENT: Negative. CARDIOVASCULAR: Negative. PULMONARY: Mild shortness of breath, cough, congestion and phlegm production. GI: Negative. : Negative. RHEUMATOLOGIC: Left hip pain. IMMUNOLOGIC: Negative. ENDOCRINOLOGIC: Negative. DERMATOLOGIC: Negative. Current vital signs are reviewed, temperature is 98.6, heart rate 81, respiratory rate 18, blood pressure 132/63 mean 86, 2 L saturation 89%. Appears in no acute distress. HEENT: Examination is grossly unremarkable. She has nasal O2 in place. She is spitting up copious amounts of phlegm. NECK: Supple. Full range of motion. No adenopathy. Neck veins are flat. CARDIOVASCULAR: Examination reveals regular rhythm and rate. A heart murmur is noted. A click from a mechanical valve is noted. S1, S2 normal. LUNGS: Reveal mostly clear breath sounds. A few scattered mild rhonchi. No wheezes or crackles. ABDOMEN: Soft. EXTREMITIES: Intact. There is pain in the area of the left hip, left proximal femur. SKIN: Without rash. NEUROLOGIC: Examination is brief but nonfocal. LABS: Reviewed. White count 13.3, hemoglobin 14.1, hematocrit 44.1, platelet count normal. PT, INR were 13.1 and 1.3. Sodium 136, potassium 4.1, chloride is 105, CO2 is 21, anion gap is 10, BUN and creatinine were 15 and 0.42. I do not see a urinalysis. Current medications are reviewed. From the antibiotic standpoint, we placed her on Zithromax. She was previously on Rocephin. That should hopefully take care of both the lung and the urine. She is on a nicotine patch. She is not on any breathing treatments. Will add those. ASSESSMENT: 1. Recent fall with left femur fracture with anticipated repair, today. 2. Probable pneumonia left lower lobe. 3. Probable urinary tract infection. 4. History of hyperlipidemia. 5. Vague history of asthma. 6. Coronary artery disease. 7. Cerebrovascular accident. 8. Gastroesophageal reflux disease. 9. Hypertension. 10.Status post mechanical aortic valve surgery. PLAN: The patient will be given IV Zithromax to complement the patient's Rocephin. We will do a UA ACCOUNTING RECRUITER. The patient will have an x-ray in the morning. We recommend holding surgery. Will add some updrafts to the patient's regimen. Additional recommendations and suggestions are forthcoming. Prognosis is guarded. MMODL / IJN: [id number] /
--- NOTE | 2019-06-20 14:33 | P.PN ---
Subjective HISTORY OF PRESENTING ILLNESS This is a pleasant 63-year-old female past medical history significant for valvular heart disease status post mechanical aortic valve replacement approximately 15 years ago, CVA, peripheral vascular disease status post bilateral carotid endarterectomy, dyslipidemia and chronic nicotine dependence. She presented with fall. She follows in the office with a com writer out of [place], name unknown. Chest x-ray was obtained yesterday revealing the left lower lobe atelectasis versus pneumonia and associated effusion, ascending aortic aneurysm and underlying emphysema. Pulmonary care has seen the patient and initiated antibiotics. Surgery has been postponed for 2 days. Blood pressure 132/63 heart rate 81 afebrile maintaining oxygen saturation on nasal cannula. Bilateral carotid Doppler obtained revealing hemodynamically significant stenosis of the proximal right ICA corresponding to 50-69% reduction right greater than left. Patient was seen and examined resting comfortably lying flat in bed in no acute distress with family at the bedside. She denies chest pain shortness of breath, dizziness or palpitations. Laboratory data reviewed, WBC 13.3, hemoglobin 14.1, platelets 232, INR 1.3, sodium 136, potassium 4.1, creatinine 0.42. PHYSICAL EXAMINATION CONSTITUTIONAL: No apparent distress. HEENT: Head is normocephalic. Pupils are equal, round. Sclerae anicteric. Mucous membranes of the mouth are moist. No JVD. Bilateral carotid bruit. CHEST EXAMINATION: Lungs are clear to auscultation. No chest wall tenderness is noted on palpation or with deep breathing. HEART EXAMINATION: Regular rate and rhythm. S1, S2 heard. Mechanical click at the base with systolic ejection murmur, no gallops or rub. EXTREMITIES: 1+ peripheral pulses, no lower extremity edema and no calf tend erness. ASSESSMENT Left femoral neck fracture status post fall Hypertension Valvular heart disease status post mechanical aortic valve replacement on long- term anticoagulation with Coumadin Peripheral vascular disease status post bilateral carotid endarterectomy Dyslipidemia Leukocytosis Chronic nicotine dependence PLAN Continue lovenox BID as ordered. Dose to be given tomorrow night prior to lopez rgery and held the morning of surgery. Check daily PT/INR. We will continue to follow and make recommendations accordingly. Nurse Practitioner note has been reviewed, I agree with a documented findings and plan of care. Patient was seen and examined. Objective - Vital Signs Vital signs: Vital Signs Temp 98.6 F 06/20/19 07:00 Pulse 81 06/20/19 07:00 Resp 18 06/20/19 07:00 BP 132/63 06/20/19 07:00 Pulse Ox 89 L 06/20/19 07:00 Intake & Output 06/19/19 06/20/19 06/20/19 18:59 06:59 18:59 Intake Total 900 Output Total 1250 Balance -350 Intake: Intake, IV Titration 900 Amount Sodium Chloride 0.9% 1, 900 000 ml @ 75 mls/hr IV . [id number] [facility] Rx#:[id number] Output: Urine 1250 Other: Voiding Method Indwelling Catheter Indwelling Catheter Indwelling Catheter # Voids 3 - Labs CBC & Chem 7: 06/20/19 07:34 06/20/19 07:34 Labs: Abnormal Lab Results - Last 24 Hours (Table) 06/20/19 06/20/19 06/20/19 Range/Units 07:34 07:34 07:34 WBC 13.3 H (3.8-10.6) k/uL Neutrophils # 11.2 H (1.3-7.7) k/uL Lymphocytes # 0.6 L (1.0-4.8) k/uL Basophils # 0.3 H (0-0.2) k/uL PT 13.1 H (9.0-12.0) sec INR 1.3 H (<1.2) Sodium 136 L (137-145) mmol/L Carbon Dioxide 21 L (22-30) mmol/L Creatinine 0.42 L (0.52-1.04) mg/dL Glucose 129 H (74-99) mg/dL Urine Appearance (Clear) Urine Protein (Negative) Urine Ketones (Negative) Urine Blood (Negative) Urine Nitrite (Negative) Ur Leukocyte Esterase (Negative) Urine RBC (0-5) /hpf Urine WBC (0-5) /hpf Urine Bacteria (None) /hpf Urine Mucus (None) /hpf 06/20/19 Range/Units 10:20 WBC (3.8-10.6) k/uL Neutrophils # (1.3-7.7) k/uL Lymphocytes # (1.0-4.8) k/uL Basophils # (0-0.2) k/uL PT (9.0-12.0) sec INR (<1.2) Sodium (137-145) mmol/L Carbon Dioxide (22-30) mmol/L Creatinine (0.52-1.04) mg/dL Glucose (74-99) mg/dL Urine Appearance Cloudy H (Clear) Urine Protein 1+ H (Negative) Urine Ketones 2+ H (Negative) Urine Blood Moderate H (Negative) Urine Nitrite Positive H (Negative) Ur Leukocyte Esterase Large H (Negative) Urine RBC 50 H (0-5) /hpf Urine WBC 85 H (0-5) /hpf Urine Bacteria Many H (None) /hpf Urine Mucus Rare H (None) /hpf
[2019-06-20] MEDS: IPRATROPIUM-ALBUTEROL 3 ML NEB INHALATION SCH ×3 (15:14→19:12)
[2019-06-20] MEDS: HYDROcodone/APAP 5-325MG 1 EACH TAB PO PRN ×2 (15:58→23:08)
[2019-06-20] MEDS: SODIUM CHLORIDE 0.9% 1,000 ML IV SCH ×2 (15:59→19:51)
[2019-06-20] MEDS: ATORVASTATIN 20 MG TAB PO SCH (19:50)
--- NOTE | 2019-06-20 21:30 | P.PN ---
Subjective Progress Note Date: 06/20/19 Principal diagnosis: Left hip fracture Patient is seen at bedside today. We are following her for a left femoral neck fracture where she was planned to undergo a left hip hemiarthroplasty today. It was decided to delay surgery due to a UTI and her other current comorbidities including pulmonary issues. She continues to have left hip pain as expected but it is currently controlled and she is in no distress. She has no new complaints including numbness, tingling or calf pain Objective - Vital Signs Vital signs: Vital Signs Temp 98.4 F 06/20/19 19:00 Pulse 78 06/20/19 19:23 Resp 20 06/20/19 19:00 BP 149/74 06/20/19 19:00 Pulse Ox 91 L 06/20/19 19:00 Intake & Output 06/20/19 06/20/19 06/21/19 06:59 18:59 06:59 Intake Total 900 Output Total 1250 Balance -350 Intake: Intake, IV Titration 900 Amount Sodium Chloride 0.9% 1, 900 000 ml @ 75 mls/hr IV . [id number] [facility] Rx#:[id number] Output: Urine 1250 Other: Voiding Method Indwelling Catheter Indwelling Catheter - Exam Left lower extremity continues to show shortened externally rotated leg. ROM of hip not tested due to fracture. Painless passive ROM of knee, ankle and foot. There is no erythema or wounds. The left lower extremity is grossly intact throughout with motor and sensation. Calves are soft and nontender. 2+ DP pulses and less than 2 sec cap refill is present. - Constitutional General appearance: Present: no acute distress - Labs CBC & Chem 7: 06/20/19 07:34 06/20/19 07:34 Labs: Abnormal Lab Results - Last 24 Hours (Table) 06/20/19 06/20/19 06/20/19 Range/Units 07:34 07:34 07:34 WBC 13.3 H (3.8-10.6) k/uL Neutrophils # 11.2 H (1.3-7.7) k/uL Lymphocytes # 0.6 L (1.0-4.8) k/uL Basophils # 0.3 H (0-0.2) k/uL PT 13.1 H (9.0-12.0) sec INR 1.3 H (<1.2) Sodium 136 L (137-145) mmol/L Carbon Dioxide 21 L (22-30) mmol/L Creatinine 0.42 L (0.52-1.04) mg/dL Glucose 129 H (74-99) mg/dL Urine Appearance (Clear) Urine Protein (Negative) Urine Ketones (Negative) Urine Blood (Negative) Urine Nitrite (Negative) Ur Leukocyte Esterase (Negative) Urine RBC (0-5) /hpf Urine WBC (0-5) /hpf Urine Bacteria (None) /hpf Urine Mucus (None) /hpf 06/20/19 Range/Units 10:20 WBC (3.8-10.6) k/uL Neutrophils # (1.3-7.7) k/uL Lymphocytes # (1.0-4.8) k/uL Basophils # (0-0.2) k/uL PT (9.0-12.0) sec INR (<1.2) Sodium (137-145) mmol/L Carbon Dioxide (22-30) mmol/L Creatinine (0.52-1.04) mg/dL Glucose (74-99) mg/dL Urine Appearance Cloudy H (Clear) Urine Protein 1+ H (Negative) Urine Ketones 2+ H (Negative) Urine Blood Moderate H (Negative) Urine Nitrite Positive H (Negative) Ur Leukocyte Esterase Large H (Negative) Urine RBC 50 H (0-5) /hpf Urine WBC 85 H (0-5) /hpf Urine Bacteria Many H (None) /hpf Urine Mucus Rare H (None) /hpf Microbiology - Last 24 Hours (Table) 06/20/19 10:20 Urine Culture - Preliminary Urine,Voided Assessment and Plan (1) Fracture of femoral neck, left Narrative/Plan: Plan will be to proceed with surgical intervention including a left hip hemiarthroplasty for her left femoral neck fracture when cleared my medicine, pulmonary and cardiology, possible Tuesday. Continue pain management, DVT prophylaxis and medical management. Current Visit: Yes Status: Acute Priority: Medium Code(s): S72.002A - FRACTURE OF UNSP PART OF NECK OF LEFT FEMUR, INIT SNOMED Code(s): 4627548 Time with Patient: Less than 30
[2019-06-21] MEDS: HYDROcodone/APAP 5-325MG 1 EACH TAB PO PRN (05:28)
[2019-06-21 07:37] LABS: Prothrombin Time 10.7 sec (9.0-12.0)
--- NOTE | 2019-06-21 07:45 | XR ---
EXAMINATION TYPE: XR chest 1V portable DATE OF EXAM: 06/21/2019 COMPARISON: Prior chest x-ray 06/19/2019 HISTORY: Pneumonia TECHNIQUE: Single frontal view of the chest is obtained. FINDINGS: There is been interval near complete opacification of the left hemithorax. Patient is rota wanda. Patient is post median sternotomy and rotated. No evident pneumothorax. Question some minimal pa tchy density in the right upper lobe. IMPRESSION: Probable development of sizable left pleural effusion, atelectasis, there may be underly ing pneumonia. A [place] level critical message alert has been initiated for Mil Kimble via the [employer] Critical Results System on 06/21/2019 7:42 AM. This message alert has been sent to Mil Kibmle via the preferences provided by the clinician for the receipt of Radiology Critical Findings. Message ID [id number].
[2019-06-21 07:46] LABS: ALT 21 U/L (9-52); AST 18 U/L (14-36); African American GFR (CKD) >90 (>60 ml/min/1.73 sqM); Albumin 2.9 g/dL (3.5-5.0); Alkaline Phosphatase 68 U/L (38-126); Anion Gap 8 mmol/L; Blood Urea Nitrogen 21 mg/dL (7-17); Calcium 8.6 mg/dL (8.4-10.2); Carbon Dioxide 24 mmol/L (22-30); Chloride 104 mmol/L (98-107); Glucose 118 mg/dL (74-99); Non-African American GFR(CKD) >90 (>60 ml/min/1.73 sqM); Potassium 3.3 mmol/L (3.5-5.1); Sodium 136 mmol/L (137-145); Total Bilirubin 0.6 mg/dL (0.2-1.3); Total Protein 5.6 g/dL (6.3-8.2)
[2019-06-21] MEDS: NICOTINE 14MG/24HR PATCH TRANSDERM SCH (07:58)
[2019-06-21] MEDS: amLODIPine 5 MG TAB PO SCH (07:59)
[2019-06-21] MEDS: PANTOPRAZOLE 40 MG TABLET PO SCH ×2 (07:59→17:15)
[2019-06-21] MEDS: AZITHROMYCIN 500 MG TAB PO SCH (07:59)
[2019-06-21] MEDS: ENOXAPARIN 80 MG/0.8 ML SYRINGE SQ SCH ×2 (07:59→22:10)
[2019-06-21] MEDS: METOPROLOL TARTRATE 25 MG TAB PO SCH ×2 (07:59→21:32)
[2019-06-21 08:00] LABS: Basophils # (A) 0.2 k/uL (0-0.2); Basophils % (A) 2 %; Eosinophils # (A) 0.1 k/uL (0-0.7); Eosinophils % (A) 1 %; HCT 38.3 % (34.0-46.0); HGB 12.6 gm/dL (11.4-16.0); Lymphocytes # (A) 0.9 k/uL (1.0-4.8); Lymphocytes % (A) 8 %; MCH 28.4 pg (25.0-35.0); MCHC 32.8 g/dL (31.0-37.0); MCV 86.6 fL (80.0-100.0); Mean Platelet Volume 11.3; Monocytes # (A) 0.9 k/uL (0-1.0); Monocytes % (A) 8 %; Neutrophils # (A) 9.1 k/uL (1.3-7.7); Neutrophils % (A) 80 %; Platelet Count 184 k/uL (150-450); RBC 4.43 m/uL (3.80-5.40); RDW 15.3 % (11.5-15.5); WBC 11.4 k/uL (3.8-10.6)
[2019-06-21] MEDS: SODIUM CHLORIDE 0.9% 1,000 ML IV SCH ×2 (08:00→17:13)
[2019-06-21] MEDS ORDERED: Potassium Replacement Protocol 1 EACH MISC MISCELLANE PRN ×2 (08:08→16:01)
[2019-06-21] MEDS: IPRATROPIUM-ALBUTEROL 3 ML NEB INHALATION SCH ×5 (08:14→20:05)
[2019-06-21] MEDS: POTASSIUM CHLORIDE ER 20 MEQ TAB.ER PO SCH ×4 (08:49→18:38)
[2019-06-21 08:51] LABS: Large Platelets Present
[2019-06-21] MEDS ORDERED: FUROSEMIDE 10 MG/ML 10 ML VIAL IV STA (09:23)
--- NOTE | 2019-06-21 09:52 | US ---
EXAMINATION TYPE: US chest DATE OF EXAM: 06/21/2019 COMPARISON: Radiograph same day CLINICAL HISTORY: 63-year-old female left pleural effusion. Patient has severe left knee pain and is unable to sit upright for US. TECHNIQUE: Targeted ultrasound of the posterior lower left chest FINDINGS: EXAM MEASUREMENTS: Left Pleural Effusion pocket size: 4.3 cm Left skin surface to fluid distance: 3.4 cm Left side was not marked for possible thoracentesis outside the dept. Pulmonologists are able to review the images in the patient?s EMR. IMPRESSIONS: Small left pleural effusion at the posterior base. Markings were not performed.
--- NOTE | 2019-06-21 10:04 | P.PN ---
Subjective Progress Note Date: 06/21/19 This is a 63-year-old female patient who presented to the ER after sustaining a fall. Patient reports that she was moving around furniture when she slipped out of bed and fell onto the left side of her body. Patient denies any loss of consciousness prior to episode. Patient denies any other injuries to head or neck. X-ray of pelvis and femur completed showing left femoral neck fracture. Pelvis x-ray completed showing left femoral neck fracture. CT of head and spine completed showing age-related atrophic and chronic small vessel ischemic changes without acute intracranial process seen at this time. No evidence for acute fracture or subluxation of the cervical spine. Patient does have a past medical history of asthma, coronary artery disease, CVA, GERD, nicotine dependence and heart valve replacement in which she is managed on Coumadin. Patient reports that she follows with her toll bridge operator regularly but unable to recall when her last 2-D echo or stress test was. Patient reports that her valve replacement was possibly 10 years ago. INR on admission 1.4. Coumadin currently on hold. Due to patient's cardiac history will consult cardiology services for cardiac clearance prior to surgery. 2-D echo has been ordered. Patient having some discomfort to left hip area. Patient denies chest pain or shortness of breath. Patient denies nausea vomiting or diarrhea. Patient denies any urinary burning or frequency. Patient denies any recent illness. Patient denies any significan t history of blood clots to legs or lungs. Patient denies history of irregular heart rhythm. On 06/20/2019 patient is alert and oriented 3. Patient had chest x-ray completed yesterday showing correlation for left lower lobe atelectasis first pneumonia and associated effusion. Ascending aortic aneurysm underlying emphysema. Patient also having elevated white count this a.m. 13.3. Pulmonary services have been consulted. 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 Per pulmonary will hold off on surgery for 2 days so patient can receive antibiotics for pneumonia and possible UTI. Patient was thoroughly evaluated by cardiology service is currently on Lovenox bridging tissue bioprosthetic valve. At this time patient denies chest pain or shortness of breath. Patient denies nausea vomiting or diarrhea. Patient denies any urinary burning or frequency On 06/21/2019 patient is alert and oriented 3. Repeat chest x-ray this morning showing probable development of sizable left pleural effusion and atelectasis as there may be underlying pneumonia. Chest ultrasound ordered. Lasix ordered per cardiology. Patient remains on Rocephin and azithromycin. Patient remains on Lovenox for bioprosthetic valve. Patient requiring more oxygen per nursing staff this was discussed with pulmonary services. Blood sputum cultures ordered. Patient denies chest pain. Patient reports some shortness of breath. Patient denies nausea vomiting or diarrhea. Patient denies any urinary burning or frequency Objective - Vital Signs Vital signs: Vital Signs Temp 98.1 F 06/21/19 07:00 Pulse 77 06/21/19 08:27 Resp 16 06/21/19 07:00 BP 147/71 06/21/19 07:00 Pulse Ox 92 L 06/21/19 08:16 Intake & Output 06/20/19 06/21/19 06/21/19 18:59 06:59 18:59 Intake Total 950 50 Output Total 650 Balance 300 50 Intake: Intake, IV Titration 900 50 Amount Sodium Chloride 0.9% 1, 900 000 ml @ 75 mls/hr IV . [id number] [facility] Rx#:[id number] cefTRIAXone 1 gm In 50 Sodium Chloride 0.9% 50 ml @ 100 mls/hr IVPB Q24HR [facility] Rx#:[id number] Oral 50 Output: Urine 650 Other: Voiding Method Indwelling Catheter Indwelling Catheter - Exam Head normocephalic Neck supple Lungs diminished bilaterally Heart regular rate and rhythm S1-S2, no rub or gallop Abdomen is soft nontender nondistended positive bowel sounds no hepatosplenomegaly Extremities no edema. Left hip tenderness to palpation Neuro alert and orientated to 3 - Labs CBC & Chem 7: 06/21/19 06:54 06/21/19 06:54 Labs: Abnormal Lab Results - Last 24 Hours (Table) 06/20/19 06/21/19 06/21/19 Range/Units 10:20 06:54 06:54 WBC 11.4 H (3.8-10.6) k/uL Neutrophils # 9.1 H (1.3-7.7) k/uL Lymphocytes # 0.9 L (1.0-4.8) k/uL Sodium 136 L (137-145) mmol/L Potassium 3.3 L (3.5-5.1) mmol/L BUN 21 H (7-17) mg/dL Creatinine 0.46 L (0.52-1.04) mg/dL Glucose 118 H (74-99) mg/dL Total Protein 5.6 L (6.3-8.2) g/dL Albumin 2.9 L (3.5-5.0) g/dL Urine Appearance Cloudy H (Clear) Urine Protein 1+ H (Negative) Urine Ketones 2+ H (Negative) Urine Blood Moderate H (Negative) Urine Nitrite Positive H (Negative) Ur Leukocyte Esterase Large H (Negative) Urine RBC 50 H (0-5) /hpf Urine WBC 85 H (0-5) /hpf Urine Bacteria Many H (None) /hpf Urine Mucus Rare H (None) /hpf Microbiology - Last 24 Hours (Table) 06/20/19 10:20 Urine Culture - Preliminary Urine,Voided Assessment and Plan Assessment: 1. Fall with left femur neck fracture. hip x-ray completed showing left femur neck fracture. Patient has been admitted to orthopedic service and plans for left hip hemiarthroplasty for left normal neck fracture per orthopedic services. At this time surgery on hold due to pulmonary request for concerns of possible pneumonia 2. History of mechanical valve maintained on Coumadin. Coumadin on hold. Patient was ago by cardiology services 2-D echo reviewed recommend bridging with anticoagulation of Lovenox prior to surgery and thereafter. Per cardiology Lovenox should be continued until 8 hours prior to surgery and continued ther eafter for 3 days along with daily Coumadin dosing to start RIVER after surgery. 3. Probable pneumonia. Chest x-ray completed showing correlation for left lower lobe atelectasis or pneumonia and associated effusion. Ascending aortic aneurysm underlying emphysema. Pulmonary services have been consulted. Discussed case with pulmonary nurse practitioner. Pulmonary services would like to hold off on surgery for 2 days for patient to receive antibiotics. Rocephin and azithromycin ordered. Sputum and blood culture ordered 4. Urinary tract infection present on admission. Patient started on Rocephin. urine culture ordered 5. Left pleural effusion. Chest x-ray showing probable development of sizable left pleural effusion and atelectasis may be underlying pneumonia. Fluids DC'd. Patient given Lasix 60 mg once per cardiology. pulmonary service is aware 6. History of GERD 7. History of coronary artery disease 8. History of nicotine dependence currently half a pack a day smoker. Nicotine patch has been ordered patient educated greater than 3 minutes on smoking cessation 9. History of CVA 10. Peripheral vascular disease status post bilateral carotid artery endarterec damon. Carotid Doppler completed showing hemodynamic significant stenosis of the proximal right internal carotid arteries bilaterally by Doppler criteria an indirect measurement of the carotid stenosis corresponding to approximately 50- 69% diameter reduction right greater than left. 11. Hypokalemia. replace per protocol. potassium 3.3 DVT prophylaxis Lovenox bridging until Coumadin resumed. GI prophylaxis Protonix surgery currently on hold until cleared by pulmonary and cardiology services and pulmonary status improves cardiology and pulmonary services following Thank you for this consultation we will continue to follow patient closely throughout stay I performed an examination of the patient and discussed their management with the Nurse Practitioner. I have reviewed the Nurse Practitioner's notes and agree with the documented findings and plan of care
--- NOTE | 2019-06-21 10:17 | P.PN ---
Subjective Progress Note Date: 06/21/19 Principal diagnosis: Left hip fracture Patient is seen at bedside today. We are following her for a left femoral neck fracture where she was planned to undergo a left hip hemiarthroplasty yesterday, 06/20/2019. It was decided to delay surgery due to a UTI and her other current comorbidities including pulmonary issues. She continues to have left hip pain as expected but it is currently controlled and she is in no distress. She has no new complaints including numbness, tingling or calf pain Objective - Vital Signs Vital signs: Vital Signs Temp 98.1 F 06/21/19 07:00 Pulse 77 06/21/19 08:27 Resp 16 06/21/19 07:00 BP 147/71 06/21/19 07:00 Pulse Ox 92 L 06/21/19 08:16 Intake & Output 06/20/19 06/21/19 06/21/19 18:59 06:59 18:59 Intake Total 950 50 Output Total 650 Balance 300 50 Intake: Intake, IV Titration 900 50 Amount Sodium Chloride 0.9% 1, 900 000 ml @ 75 mls/hr IV . [id number] [facility] Rx#:[id number] cefTRIAXone 1 gm In 50 Sodium Chloride 0.9% 50 ml @ 100 mls/hr IVPB Q24HR [facility] Rx#:[id number] Oral 50 Output: Urine 650 Other: Voiding Method Indwelling Catheter Indwelling Catheter - Exam Left lower extremity continues to show shortened externally rotated leg. ROM of hip not tested due to fracture. Painless passive ROM of knee, ankle and foot. There is no erythema or wounds. The left lower extremity is grossly intact throughout with motor and sensation. Calves are soft and nontender. 2+ DP pulses and less than 2 sec cap refill is present. - Constitutional General appearance: Present: no acute distress - Labs CBC & Chem 7: 06/21/19 06:54 06/21/19 06:54 Labs: Abnormal Lab Results - Last 24 Hours (Table) 06/20/19 06/21/19 06/21/19 Range/Units 10:20 06:54 06:54 WBC 11.4 H (3.8-10.6) k/uL Neutrophils # 9.1 H (1.3-7.7) k/uL Lymphocytes # 0.9 L (1.0-4.8) k/uL Sodium 136 L (137-145) mmol/L Potassium 3.3 L (3.5-5.1) mmol/L BUN 21 H (7-17) mg/dL Creatinine 0.46 L (0.52-1.04) mg/dL Glucose 118 H (74-99) mg/dL Total Protein 5.6 L (6.3-8.2) g/dL Albumin 2.9 L (3.5-5.0) g/dL Urine Appearance Cloudy H (Clear) Urine Protein 1+ H (Negative) Urine Ketones 2+ H (Negative) Urine Blood Moderate H (Negative) Urine Nitrite Positive H (Negative) Ur Leukocyte Esterase Large H (Negative) Urine RBC 50 H (0-5) /hpf Urine WBC 85 H (0-5) /hpf Urine Bacteria Many H (None) /hpf Urine Mucus Rare H (None) /hpf Microbiology - Last 24 Hours (Table) 06/20/19 10:20 Urine Culture - Preliminary Urine,Voided Assessment and Plan (1) Fracture of femoral neck, left Narrative/Plan: Plan will be to proceed with surgical intervention including a left hip hemiarthroplasty for her left femoral neck fracture when cleared my medicine, pulmonary and cardiology. Continue pain management, DVT prophylaxis and medical management. Current Visit: Yes Status: Acute Priority: Medium Code(s): S72.002A - FRACTURE OF UNSP PART OF NECK OF LEFT FEMUR, INIT SNOMED Code(s): 2361899 Time with Patient: Less than 30
[2019-06-21 11:17] LABS: Glucose,Whole Blood 132 mg/dL (75-99)
--- NOTE | 2019-06-21 11:23 | P.PN ---
Subjective HISTORY OF PRESENTING ILLNESS This is a pleasant 63-year-old female past medical history significant for valvular heart disease status post mechanical aortic valve replacement approximately 15 years ago, CVA, peripheral vascular disease status post bilateral carotid endarterectomy, dyslipidemia and chronic nicotine dependence. She presented with fall. She follows in the office with a site auditor out of [place], name unknown. She is seen and examined laying flat in bed. She is in no acute distress however states she is feeling increasingly short of breath overnight. Denies chest pain, dizziness or palpitations. Per nursing staff she is requiring more oxygen to maintain oxygen sats. Repeat chest xray revealed sizable left pleural effusion. STAT u/s was requested and revealed a pleural effusion with pocket size of 4.3 cm. Blood pressure 147/71 heart rate 62. Laboratory data reviewed, WBC 11.4, hgb 12.6, plt 184, creatinine 0.46, INR 1.0 and potassium 3.3. PHYSICAL EXAMINATION CONSTITUTIONAL: No apparent distress. HEENT: Head is normocephalic. Pupils are equal, round. Sclerae anicteric. Mucous membranes of the mouth are moist. No JVD. Bilateral carotid bruit. CHEST EXAMINATION: Lungs are clear to auscultation. No chest wall tenderness is noted on palpation or with deep breathing. Diminished bilaterally, difficult to assess due to hip fracture and pt laying flat. HEART EXAMINATION: Regular rate and rhythm. S1, S2 heard. Mechanical click at the base with systolic ejection murmur, no gallops or rub. EXTREMITIES: 1+ peripheral pulses, no lower extremity edema and no calf tenderness. ASSESSMENT Left femoral neck fracture status post fall Hypertension Valvular heart disease status post mechanical aortic valve replacement on long- term anticoagulation with Coumadin Peripheral vascular disease status post bilateral carotid endarterectomy Dyslipidemia Leukocytosis Chronic nicotine dependence PLAN Give dose of IV lasix 60 mg now. May require higher level of care if she continues to require high levels of oxygen as well as possible bronchoscopy. Pulmonary team to evaluate pleural effusion. Continue lovenox as previously ordered. Hold coumadin. Nurse Practitioner note has been reviewed, I agree with a documented findings and plan of care. Patient was seen and examined. Objective - Vital Signs Vital signs: Vital Signs Temp 98.1 F 06/21/19 07:00 Pulse 77 06/21/19 08:27 Resp 16 06/21/19 07:00 BP 147/71 06/21/19 07:00 Pulse Ox 92 L 06/21/19 08:16 Intake & Output 06/20/19 06/21/19 06/21/19 18:59 06:59 18:59 Intake Total 950 50 Output Total 650 1000 Balance 300 -950 Intake: Intake, IV Titration 900 50 Amount Sodium Chloride 0.9% 1, 900 000 ml @ 75 mls/hr IV . [id number] [facility] Rx#:[id number] cefTRIAXone 1 gm In 50 Sodium Chloride 0.9% 50 ml @ 100 mls/hr IVPB Q24HR [facility] Rx#:[id number] Oral 50 Output: Urine 650 1000 Uretheral (Buckner) 1000 Other: Voiding Method Indwelling Catheter Indwelling Catheter - Labs CBC & Chem 7: 06/21/19 06:54 06/21/19 10:47 Labs: Abnormal Lab Results - Last 24 Hours (Table) 06/20/19 06/21/19 06/21/19 Range/Units 10:20 06:54 06:54 WBC 11.4 H (3.8-10.6) k/uL Neutrophils # 9.1 H (1.3-7.7) k/uL Lymphocytes # 0.9 L (1.0-4.8) k/uL Sodium 136 L (137-145) mmol/L Potassium 3.3 L (3.5-5.1) mmol/L BUN 21 H (7-17) mg/dL Creatinine 0.46 L (0.52-1.04) mg/dL Glucose 118 H (74-99) mg/dL Total Protein 5.6 L (6.3-8.2) g/dL Albumin 2.9 L (3.5-5.0) g/dL Urine Appearance Cloudy H (Clear) Urine Protein 1+ H (Negative) Urine Ketones 2+ H (Negative) Urine Blood Moderate H (Negative) Urine Nitrite Positive H (Negative) Ur Leukocyte Esterase Large H (Negative) Urine RBC 50 H (0-5) /hpf Urine WBC 85 H (0-5) /hpf Urine Bacteria Many H (None) /hpf Urine Mucus Rare H (None) /hpf Microbiology - Last 24 Hours (Table) 06/20/19 10:20 Urine Culture - Preliminary Urine,Voided
[2019-06-21] MEDS: HYDROmorphone 0.5 MG/0.5 ML SYRINGE IVP PRN ×2 (11:35→14:20)
[2019-06-21] MEDS ORDERED: IV FLUID CONTINUATION 400 ML IV ONE (12:07)
[2019-06-21] MEDS ORDERED: LIDOCAINE 2% INJ 20 MG/ML INTRATRACH ONE (12:21)
--- NOTE | 2019-06-21 14:21 | XR ---
EXAMINATION TYPE: XR chest 1V portable DATE OF EXAM: 06/21/2019 COMPARISON: Prior chest x-ray 06/21/2019 at earlier time HISTORY: Status post bronchoscopy TECHNIQUE: Single frontal view of the chest is obtained. FINDINGS: There is interval improvement in aeration in left lung. No evident pneumothorax. Persisten t abnormal density present at the left lung base. Patient is post median sternotomy and rotated. Aort a is dense. Heart size is within normal limits. IMPRESSION: There is some residual atelectasis, improvement in aeration. No evident complication sta tus post bronchoscopy. There may be small left pleural effusion, correlate to exclude pneumonia
[2019-06-21] MEDS: HYDROmorphone 1 MG/ML 1 ML SYRINGE IVP PRN ×3 (16:06→21:33)
--- NOTE | 2019-06-21 16:18 | PN ---
PROGRESS NOTE PULMONARY/CRITICAL CARE PROGRESS NOTE: DATE OF SERVICE: 06/21/2019 This is a 63-year-old female whom we were asked to see prior to repair of a left femur fracture. We were concerned about the possibility of both pneumonia involving the left lower lobe and probable urinary tract infection. She does have a history of hyperlipidemia, asthma, CAD, CVA, GERD, hypertension and aortic valve replacement. We thought she was at high risk based on her appearance yesterday and we told Orthopedics that they should hold off on surgery. Antibiotics were started. Her chest x-ray yesterday showed a very minimal patch of infiltrate in the left lower lobe. This morning when we looked at the x-ray, there was complete whiteout of the left lung. We transferred her to the ICU, where she underwent bronchoscopy and BAL. She is currently resting comfortably in the ICU. The procedure was done without any difficulty. The repeat chest x-ray on Ms. Llamas shows nearly complete re-expansion of the left lung. There is some infiltrate, atelectasis or other abnormalities and probably a small left- sided pleural effusion. We will continue to watch this area very carefully. The BAL fluid was sent for analysis. PHYSICAL EXAMINATION: VITAL SIGNS: Current vital signs include temperature 98.3, heart rate 74, respiratory rate 17, blood pressure 147/70, mean 95. Saturations are 94% on 8 L high flow. GENERAL APPEARANCE: She appears in no acute distress. Actually this morning when we first saw her in her regular room before she got transferred to the ICU, she actually stated that she was feeling a bit better. HEENT: HEENT examination is grossly unremarkable. Nasal oxygen in place. NECK: Supple. Full range of motion. No adenopathy. CARDIOVASCULAR: Cardiovascular examination reveals regular rhythm and rate. Heart rate in the mid 70s. S1, S2 normal. LUNGS: Lungs reveal diminished breath sounds on the left. A few scattered rhonchi on the left. No wheezes. No crackles. ABDOMEN: Soft. Bowel sounds are heard. EXTREMITIES: Intact. No cyanosis, clubbing or edema. SKIN: Without rash. NEUROLOGIC: Neurologic examination is brief but nonfocal. LABS: Reviewed. White count 11.4, hemoglobin 12.6, hematocrit 38.3, platelet count 184,000. PT/INR normal. Sodium 136, potassium 3.3, chloride 104, CO2 24, anion gap 8. BUN and creatinine were 21 and 0.46. The rest of the labs are reviewed. Microbiologic studies are thus far negative, including blood and urine. BAL has just recently been sent to the laboratory for analysis. Her medications include Zithromax and Rocephin. Zithromax and Rocephin for the pneumonia, which is community-acquired, and Rocephin for the possible urinary tract infection. Her urine did look quite infected. Nitrite was positive. Leukocyte esterase was large positive. WBCs are 85, bacteria many. There are 2+ ketones and moderate blood. ASSESSMENT: 1. Recent fall with left femur fracture with eventual repair to be scheduled. Initial surgery was cancelled in view of the patient's urinary tract infection and pneumonia. 2. Urinary tract infection; organism yet to be identified. 3. Complete opacification of left lung, secondary to mucus plugging, status post bronchoscopy and bronchoalveolar lavage on June 21. 4. Left lower lobe pneumonia. 5. History of hyperlipidemia. 6. Vague history of asthma. 7. Coronary artery disease. 8. Cerebrovascular accident. 9. Gastroesophageal reflux disease. 10.Hypertension. 11.Previous aortic valve replacement. PLAN: The patient is doing well. We will continue to watch her closely here in the ICU. No additional recommendations are made. No surgery until she is much more stable. Chest x-ray is dramatically improved but not completely normal. Will continue to follow. Prognosis is guarded. MMODL / IJN: [id number] /
[2019-06-21 16:36] LABS: Appearance,BF Cloudy; Color,BF Colorless
[2019-06-21 17:04] LABS: Nucleated Cells, Body Fluid 6700 /uL; RBC, Body Fluid 1200 /uL
[2019-06-21 17:06] LABS: Mononuclear WBC,Body Fluid 4 %; Polynuclear WBC,Body Fluid 96 %; Total Cells Counted,Body Fluid 100
[2019-06-21] MEDS: SYMBICORT 160-4.5 MCG INHALER INHALATION SCH (20:05)
[2019-06-21] MEDS: ATORVASTATIN 20 MG TAB PO SCH (21:32)
--- NOTE | 2019-06-21 22:28 | PCN ---
PROCEDURE NOTE PROCEDURE PERFORMED: Bronchoscopy airway examination, therapeutic lavage, BAL. OPERATORS: Dr. Kimble and Uriel. PREOP DIAGNOSIS: Left lung collapse. POSTOP DIAGNOSIS: Left lung collapse, pneumonia. DESCRIPTION OF PROCEDURE: The patient's procedure was done in the intensive care unit in room 254. Anesthesia was at the bedside providing general anesthesia, unconscious sedation. The patient was receiving oxygen during the procedure and we monitored the entire time. Both CAD DEVELOPER and anesthesiologist were present. After the patient was adequately sedated, the bronchoscope was pushed through the right nostril. It passed through the right nasopharynx into the oropharynx. The hypopharynx was identified and topicalized. The hypopharyngeal structures including anterior commissure, true cords, false cords, arytenoids, piriform sinuses, right and left vallecula, epiglottis all appeared relatively normal. After topicalization, the bronchoscope was pushed through the glottic opening into the trachea. Trachea appeared relatively normal. There were thick secretions noted in the mid to distal trachea and they were suctioned. The secretions were rather thick and purulent looking. They were slightly yellow in color. The tracheal lynette was sharp. The right and left mainstem were topical ice. The right upper lobe and its 3 segments right middle lobe and its 2 segments, right lower lobe and its 5 segments, the left upper lobe proper and its 2 segments, the lingula and its 2 segments and the left lower lobe and its 4 segments all had similar findings of airway edema, hyperemia and erythema. There were thick secretions noted throughout particularly in the left upper lobe and left lower lobe. The right side was not affected as much. After the secretions were clear with saline, the bronchoscope was wedged in the left upper lobe. The BAL took place. The patient tolerated the procedure well. Additional saline was instilled in the right lower lobe and also in the left lower lobe and additional secretions were suctioned. Again, they were thick and purulent looking. There was no dominant mass or tumor. The patient tolerated the procedure well and was stable throughout the procedure. The bronchoscope was withdrawn. The specimens will be sent to the laboratory for analysis. MMODL / IJN: [id number] /
[2019-06-22] MEDS: POTASSIUM CHLORIDE ER 20 MEQ TAB.ER PO SCH ×2 (01:24)
[2019-06-22] MEDS: HYDROmorphone 1 MG/ML 1 ML SYRINGE IVP PRN ×4 (01:27→23:38)
[2019-06-22] MEDS: HYDROcodone/APAP 5-325MG 1 EACH TAB PO PRN ×3 (04:03→20:11)
[2019-06-22 05:18] LABS: Basophils % (A) 0 %; Eosinophils # (A) 0.1 k/uL (0-0.7); Eosinophils % (A) 1 %; HCT 38.1 % (34.0-46.0); HGB 12.2 gm/dL (11.4-16.0); Lymphocytes # (A) 1.3 k/uL (1.0-4.8); Lymphocytes % (A) 12 %; MCHC 32.1 g/dL (31.0-37.0); MCV 87.4 fL (80.0-100.0); Mean Platelet Volume 10.4; Monocytes # (A) 0.7 k/uL (0-1.0); Monocytes % (A) 6 %; Neutrophils # (A) 8.2 k/uL (1.3-7.7); Neutrophils % (A) 78 %; Platelet Count 222 k/uL (150-450); RBC 4.36 m/uL (3.80-5.40); RDW 15.4 % (11.5-15.5); WBC 10.5 k/uL (3.8-10.6)
[2019-06-22 05:26] LABS: INR 0.9 (<1.2); Prothrombin Time 9.9 sec (9.0-12.0)
[2019-06-22 05:31] LABS: ALT 16 U/L (9-52); AST 21 U/L (14-36); African American GFR (CKD) >90 (>60 ml/min/1.73 sqM); Alkaline Phosphatase 76 U/L (38-126); Anion Gap 6 mmol/L; Blood Urea Nitrogen 21 mg/dL (7-17); Carbon Dioxide 28 mmol/L (22-30); Chloride 102 mmol/L (98-107); Glucose 115 mg/dL (74-99); Magnesium 1.9 mg/dL (1.6-2.3); Non-African American GFR(CKD) >90 (>60 ml/min/1.73 sqM); Potassium 4.3 mmol/L (3.5-5.1); Sodium 136 mmol/L (137-145); Total Bilirubin 0.6 mg/dL (0.2-1.3)
[2019-06-22] MEDS: PANTOPRAZOLE 40 MG TABLET PO SCH ×2 (06:31→16:49)
--- NOTE | 2019-06-22 07:37 | XR ---
EXAMINATION TYPE: XR chest 1V portable DATE OF EXAM: 06/22/2019 COMPARISON: Prior chest x-ray 06/21/2019 HISTORY: Hypoxemia, abnormal chest x-ray TECHNIQUE: Single frontal view of the chest is obtained. FINDINGS: Increasing airspace disease is noted in the perihilar locations. No evident pneumothorax. Patient is post median sternotomy. There are overlying leads and tubing. Retrocardiac density persist s, there is some improvement in the platelike atelectatic changes at the left lung base. Heart size i s stable. Interstitium appears prominently. Aorta is dense. IMPRESSION: Correlate for congestive heart failure, pneumonia. Difficult to exclude small left effus ion, associated atelectasis or edema.
[2019-06-22] MEDS: IPRATROPIUM-ALBUTEROL 3 ML NEB INHALATION SCH ×4 (07:38→19:43)
[2019-06-22] MEDS: SYMBICORT 160-4.5 MCG INHALER INHALATION SCH ×2 (07:38→19:43)
--- NOTE | 2019-06-22 08:42 | PN ---
PROGRESS NOTE PULMONARY/CRITICAL CARE PROGRESS NOTE: DATE OF SERVICE: 06/22/2019 This is a 63-year-old female whom we were asked to see because of a recent fall and left femur fracture. When we saw her we were concerned both about pneumonia involving the left lower lobe and also urinary tract infection. She has multiple medical problems including hyperlipidemia, chronic bronchial asthma, CAD, CVA, GERD, hypertension, and aortic valve replacement. Based on her current set of problems, we thought she was at high risk and we asked orthopedics to hold off on repairing her hip. Anyway, we started her on antibiotics. Her chest x-ray initially showed just a minimal patch of infiltrate in the left lower lobe. Subsequent chest x-ray showed complete opacification of the left hemithorax. We brought her down to the ICU. We asked our anesthesia colleagues to assist us in doing a bronchoscopy at the bedside. She tolerated that very well. About an hour and a half after the bronchoscopy, we repeated the x-ray and it was much improved and this morning, the x-ray is back to the baseline. The patient is currently on antibiotics. She is stable. She is getting 6 L high-flow oxygen and she has a saline IV at KVO. She is n.p.o. In my opinion, she is stable for surgery. Orthopedics wants to proceed. Bronchoscopy on this patient just revealed evidence of significant mucus plugging, particularly in the left mainstem. Current vital signs are reviewed, temperature is 98.7, heart rate of 76, respiratory rate 16, blood pressure 133/72 mean 92, and saturations are between 96% and 98% on the 6 L high flow. Appears in no acute distress. No respiratory distress. No audible wheezing. No use of accessory muscles. HEENT: Examination is grossly unremarkable. Nasal O2 noted. NECK: Supple. Full range of motion. No adenopathy. CARDIOVASCULAR: Examination reveals regular rhythm and rate. HEART: S1, S2 normal. Heart rate 76 beats per minute. No S3, S4. LUNGS: Reveal a few scattered rhonchi. Breath sounds are much improved. No wheezes. No crackles. ABDOMEN: Soft, bowel sounds are noted. EXTREMITIES: Intact. No significant edema. SKIN: Without rash. NEUROLOGIC: Examination is brief but nonfocal. Microbiology shows gram-negative bacilli in the urine. There is greater than 100,000 colony-forming units. It has not been identified as yet. The rest of culture is negative. Lab data is reviewed. White count 10.5, hemoglobin 12.2, hematocrit 38.1, platelet count 322,000, PT,INR normal, sodium 136, potassium 4.3, chloride 102, CO2 is 28, BUN and creatinine were 21 and 0.49. Bronch specimens are pending or negative thus far. Chest x-ray shows near complete resolution of the abnormality seen yesterday. Current medications are reviewed. She is on Zithromax and ceftriaxone. The combination for pneumonia and the Rocephin for urinary tract infection. The rest of the medications look appropriate. ASSESSMENT: 1. Recent fall with left femur fracture. 2. Urinary tract infection, gram-negative bacilli, organism yet to be identified. 3. Left lower lobe pneumonia with complete opacification of the left lung, secondary to mucus plugging, status post bronchoscopy with BAL on June 21. 4. History of hyperlipidemia. 5. Mild asthma. 6. Coronary artery disease. 7. Cerebrovascular accident. 8. Gastroesophageal reflux disease. 9. Hypertension. 10.Previous aortic valve replacement. PLAN: Patient is doing well. Her chest x-ray is nearly completely resolved. It looks like the initial chest x-ray showing some minimal atelectasis and/or infiltrate at the left lung base. Clinically, she is much more stable. She is down to 6 L high flow O2. Saturations are excellent. I told the nurse to keep the patient n.p.o. Will ask the orthopedic colleagues whether or not they want to proceed with surgery at this time. I think it is much safer. We would be happy to watch her here in the ICU afterwards. No additional recommendations are made. MMODL / IJN: [id number] /
[2019-06-22] MEDS: METOPROLOL TARTRATE 25 MG TAB PO SCH ×2 (08:44→21:23)
[2019-06-22] MEDS: amLODIPine 5 MG TAB PO SCH (08:44)
[2019-06-22] MEDS: AZITHROMYCIN 500 MG TAB PO SCH (08:44)
[2019-06-22] MEDS: NICOTINE 14MG/24HR PATCH TRANSDERM SCH (08:45)
[2019-06-22] MEDS: ENOXAPARIN 80 MG/0.8 ML SYRINGE SQ SCH ×2 (08:50→21:22)
--- NOTE | 2019-06-22 10:26 | P.PN ---
Subjective Progress Note Date: 06/22/19 This is a 63-year-old female patient who presented to the ER after sustaining a fall. Patient reports that she was moving around furniture when she slipped out of bed and fell onto the left side of her body. Patient denies any loss of consciousness prior to episode. Patient denies any other injuries to head or neck. X-ray of pelvis and femur completed showing left femoral neck fracture. Pelvis x-ray completed showing left femoral neck fracture. CT of head and spine completed showing age-related atrophic and chronic small vessel ischemic changes without acute intracranial process seen at this time. No evidence for acute fracture or subluxation of the cervical spine. Patient does have a past medical history of asthma, coronary artery disease, CVA, GERD, nicotine dependence and heart valve replacement in which she is managed on Coumadin. Patient reports that she follows with her metal template maker regularly but unable to recall when her last 2-D echo or stress test was. Patient reports that her valve replacement was possibly 10 years ago. INR on admission 1.4. Coumadin currently on hold. Due to patient's cardiac history will consult cardiology services for cardiac clearance prior to surgery. 2-D echo has been ordered. Patient having some discomfort to left hip area. Patient denies chest pain or shortness of breath. Patient denies nausea vomiting or diarrhea. Patient denies any urinary burning or frequency. Patient denies any recent illness. Patient denies any significan t history of blood clots to legs or lungs. Patient denies history of irregular heart rhythm. On 06/20/2019 patient is alert and oriented 3. Patient had chest x-ray completed yesterday showing correlation for left lower lobe atelectasis first pneumonia and associated effusion. Ascending aortic aneurysm underlying emphysema. Patient also having elevated white count this a.m. 13.3. Pulmonary services have been consulted. Discussed case with cardiology RESEARCH METHODOLOGIST Ca. Per pulmonary will hold off on surgery for 2 days so patient can receive antibiotics for pneumonia and possible UTI. Patient was thoroughly evaluated by cardiology service is currently on Lovenox bridging tissue bioprosthetic valve. At this time patient denies chest pain or shortness of breath. Patient denies nausea vomiting or diarrhea. Patient denies any urinary burning or frequency On 06/21/2019 patient is alert and oriented 3. Repeat chest x-ray this morning showing probable development of sizable left pleural effusion and atelectasis as there may be underlying pneumonia. Chest ultrasound ordered. Lasix ordered per cardiology. Patient remains on Rocephin and azithromycin. Patient remains on Lovenox for bioprosthetic valve. Patient requiring more oxygen per nursing staff this was discussed with pulmonary services. Blood sputum cultures ordered. Patient denies chest pain. Patient reports some shortness of breath. Patient denies nausea vomiting or diarrhea. Patient denies any urinary burning or frequency On 06/22/2019 patient is alert and oriented 3. Patient was transferred to the intensive care unit yesterday for bronchoscopy per pulmonary. Post chest x-ray shows improved. Oxygen demand have been decreased. Per pulmonary services patient may proceed with surgery of left hip repair today. At this time patient is resting comfortably in bed. Patient study some increased pain to left hip. Patient denies nausea vomiting diarrhea. Patient denies any urinary burning or frequency Objective - Vital Signs Vital signs: Vital Signs Temp 98 F 06/22/19 08:00 Pulse 67 06/22/19 09:00 Resp 15 06/22/19 09:00 BP 116/68 06/22/19 09:00 Pulse Ox 98 06/22/19 09:00 Intake & Output 06/21/19 06/22/19 06/22/19 18:59 06:59 18:59 Intake Total 840 240 90 Output Total 2009 505 95 Balance -1170 -265 -5 Weight 66 kg 69 kg Intake: IV 390 240 40 Sodium Chloride 0.9% 1, 20 240 40 000 ml @ 20 mls/hr IV . Q24H [facility] Rx#:[id number] Sodium Chloride 0.9% 1, 270 000 ml @ 75 mls/hr IV . [id number] [facility] Rx#:[id number] Intake, IV Titration 50 50 Amount cefTRIAXone 1 gm In 50 50 Sodium Chloride 0.9% 50 ml @ 100 mls/hr IVPB Q24HR [facility] Rx#:[id number] Oral 400 Output: Urine 2009 95 Uretheral (Buckner) 1000 Other: Voiding Method Indwelling Catheter Indwelling Catheter Indwelling Catheter - Exam Head normocephalic Neck supple Lungs diminished bilaterally Heart regular rate and rhythm S1-S2, no rub or gallop Abdomen is soft nontender nondistended positive bowel sounds no hepatosplenomegaly Extremities no edema. Left hip tenderness to palpation Neuro alert and orientated to 3 - Labs CBC & Chem 7: 06/22/19 04:42 06/22/19 04:42 Labs: Abnormal Lab Results - Last 24 Hours (Table) 06/21/19 06/22/19 06/22/19 Range/Units 11:15 04:42 04:42 Neutrophils # 8.2 H (1.3-7.7) k/uL Sodium 136 L (137-145) mmol/L BUN 21 H (7-17) mg/dL Creatinine 0.49 L (0.52-1.04) mg/dL Glucose 115 H (74-99) mg/dL POC Glucose (mg/dL) 132 H (75-99) mg/dL Total Protein 6.0 L (6.3-8.2) g/dL Albumin 3.0 L (3.5-5.0) g/dL Microbiology - Last 24 Hours (Table) 06/21/19 12:00 Gram Stain - Preliminary Bronchoalviolar Lavage - Left Bronchial Washings Culture - Preliminary 06/21/19 12:00 Acid Fast Bacilli Smear - Final Bronchoalviolar Lavage - Left Acid Fast Bacilli Culture - Preliminary 06/20/19 10:20 Urine Culture - Preliminary Urine,Voided Gram Neg Bacilli 06/21/19 12:00 Fungal Culture - Preliminary Bronchoalviolar Lavage - Left 06/20/19 11:42 Blood Culture - Preliminary Blood No Growth after 24 hours 06/20/19 11:57 Blood Culture - Preliminary Blood No Growth after 24 hours Assessment and Plan Assessment: 1. Fall with left femur neck fracture. hip x-ray completed showing left femur neck fracture. Patient has been admitted to orthopedic service and plans for left hip hemiarthroplasty for left normal neck fracture per orthopedic services. At this time surgery on hold due to pulmonary request for concerns of possible pneumonia 2. History of mechanical valve maintained on Coumadin. Coumadin on hold. Patient was ago by cardiology services 2-D echo reviewed recommend bridging with anticoagulation of Lovenox prior to surgery and thereafter. Per cardiology Lovenox should be continued until 8 hours prior to surgery and continued thereafter for 3 days along with daily Coumadin dosing to start RIVER after surgery. 3. Left lower lobe pneumonia. Chest x-ray completed showing correlation for left lower lobe atelectasis or pneumonia and associated effusion. Ascending aortic aneurysm underlying emphysema. Pulmonary services have been consulted. Discussed case with pulmonary nurse practitioner. Pulmonary services would like to hold off on surgery for 2 days for patient to receive antibiotics. Rocephin and azithromycin ordered. Sputum and blood culture ordered. Repeat chest x-ray showing complete presedation of the left lung. Patient underwent bronchoscopy with BAL on June 21. 4. Urinary tract infection present on admission. Patient started on Rocephin. urine culture ordered 5. Left pleural effusion. Chest x-ray showing probable development of sizable left pleural effusion and atelectasis may be underlying pneumonia. Fluids DC'd. Patient given Lasix 60 mg once per cardiology. pulmonary service is aware 6. History of GERD 7. History of coronary artery disease 8. History of nicotine dependence currently half a pack a day smoker. Nicotine patch has been ordered patient educated greater than 3 minutes on smoking cessation 9. History of CVA 10. Peripheral vascular disease status post bilateral carotid artery endarterectomy. Carotid Doppler completed showing hemodynamic significant stenosis of the proximal right internal carotid arteries bilaterally by Doppler criteria an indirect measurement of the carotid stenosis corresponding to approximately 50-69% diameter reduction right greater than left. 11. Hypokalemia. replace per protocol. potassium 3.3. Resolved DVT prophylaxis Lovenox bridging until Coumadin resumed. GI prophylaxis Protoni x Patient remains in the intensive care unit. Recommend monitoring in the intensive care unit postoperatively due to multiple comorbid conditions surgery currently on hold until cleared by pulmonary and cardiology services and pulmonary status improves I performed an examination of the patient and discussed their management with the Nurse Practitioner. I have reviewed the Nurse Practitioner's notes and agree with the documented findings and plan of care
[2019-06-22] MEDS: SODIUM CHLORIDE 0.9% 1,000 ML IV SCH (11:36)
--- NOTE | 2019-06-22 14:11 | P.PN ---
Subjective Progress Note Date: 06/22/19 Principal diagnosis: Preoperative cardiac assessment This is a 63-year-old female patient with a past medical history significant for valvular heart disease and status post mechanical aortic valve replacement, carotid disease, hypertension, and dyslipidemia, was admitted to the hospital after she fell at home and fractured her left hip. The patient does fall with a sand analyst out of the town. She underwent an echocardiogram which revealed normal LV function with normally functioning mechanical aortic valve. The patient is scheduled to undergo the surgery later on today. This morning, she is doing good and she is asymptomatic from a cardiovascular standpoint overview. She is hemodynamically stable. The patient was bridged with Lovenox. She is going to undergo the surgery in the next few hours. Objective - Vital Signs Vital signs: Vital Signs Temp 98.3 F 06/22/19 12:00 Pulse 65 06/22/19 12:00 Resp 12 06/22/19 12:00 BP 147/75 06/22/19 12:00 Pulse Ox 94 L 06/22/19 12:00 Intake & Output 06/21/19 06/22/19 06/22/19 18:59 06:59 18:59 Intake Total 840 240 150 Output Total 2009 505 210 Balance -1170 -265 -60 Weight 66 kg 69 kg Intake: IV 390 240 100 Sodium Chloride 0.9% 1, 20 240 100 000 ml @ 20 mls/hr IV . Q24H [facility] Rx#:[id number] Sodium Chloride 0.9% 1, 270 000 ml @ 75 mls/hr IV . [id number] [facility] Rx#:[id number] Intake, IV Titration 50 50 Amount cefTRIAXone 1 gm In 50 50 Sodium Chloride 0.9% 50 ml @ 100 mls/hr IVPB Q24HR [facility] Rx#:[id number] Oral 400 Output: Urine 2009 505 210 Uretheral (Buckner) 1000 Other: Voiding Method Indwelling Catheter Indwelling Catheter Indwelling Catheter - Constitutional General appearance: Present: no acute distress - Respiratory Respiratory: bilateral: CTA - Cardiovascular Rhythm: regular Abnormal Heart Sounds: Present: systolic murmur - Labs CBC & Chem 7: 06/22/19 04:42 06/22/19 04:42 Labs: Abnormal Lab Results - Last 24 Hours (Table) 06/22/19 06/22/19 Range/Units 04:42 04:42 Neutrophils # 8.2 H (1.3-7.7) k/uL Sodium 136 L (137-145) mmol/L BUN 21 H (7-17) mg/dL Creatinine 0.49 L (0.52-1.04) mg/dL Glucose 115 H (74-99) mg/dL Total Protein 6.0 L (6.3-8.2) g/dL Albumin 3.0 L (3.5-5.0) g/dL Microbiology - Last 24 Hours (Table) 06/20/19 11:42 Blood Culture - Preliminary Blood No Growth after 48 hours 06/20/19 11:57 Blood Culture - Preliminary Blood No Growth after 48 hours 06/21/19 12:00 Gram Stain - Preliminary Bronchoalviolar Lavage - Left Bronchial Washings Culture - Preliminary 06/21/19 12:00 Acid Fast Bacilli Smear - Final Bronchoalviolar Lavage - Left Acid Fast Bacilli Culture - Preliminary 06/20/19 10:20 Urine Culture - Preliminary Urine,Voided Gram Neg Bacilli 06/21/19 12:00 Fungal Culture - Preliminary Bronchoalviolar Lavage - Left Assessment and Plan Assessment: Assessment #1 left femoral neck fracture #2 status post fall #3 status post aortic valve replacement with mechanical valve #4 multiple comorbid conditions Plan #1 the patient remains asymptomatic #2 she is hemodynamically stable #3 currently she is bridged with Lovenox #4 the patient can proceed with the surgery #5 the patient need to restart back on Coumadin after the surgery
[2019-06-22] MEDS ORDERED: PROPOFOL 10 MG/ML 20 ML VIAL IV ONE (16:28)
[2019-06-22] MEDS ORDERED: KETAMINE 10 MG/ML 20 ML VIAL ONE (16:28)
[2019-06-22] MEDS ORDERED: MIDAZOLAM 2 MG/2 ML VIAL ONE (16:28)
[2019-06-22] MEDS ORDERED: fentaNYL (PF) 50 MCG/ML 2 ML AMP ONE (16:28)
[2019-06-22] MEDS ORDERED: PHENYLEPHRINE-0.9% NACL SYG 1 MG/10 ML SYRINGE ONE (16:28)
[2019-06-22] MEDS ORDERED: SODIUM CHLORIDE 0.9% 1,000 ML IV ONE (16:34)
[2019-06-22] MEDS ORDERED: MAGNESIUM HYDROXIDE 2,400 MG/10 ML CUP PO PRN (17:54)
[2019-06-22] MEDS ORDERED: ACETAMINOPHEN TAB 325 MG TAB PO PRN (17:54)
[2019-06-22] MEDS ORDERED: HYDROmorphone 0.5 MG/0.5 ML SYRINGE IVP PRN ×2 (17:54)
--- NOTE | 2019-06-22 18:11 | XR ---
PROCEDURE: XR Hip Limited LT - 1V DATE AND TIME: 06/22/2019 6:07 PM CLINICAL INDICATION: PHH; Status post hip surgery, assess surgical alignment TECHNIQUE: Department protocol COMPARISON: None FINDINGS: Left hip prosthesis appears anatomic in its positioning and alignment. Postprocedure change s noted; no unexpected findings. IMPRESSION: Postoperative left hip 1 view
--- NOTE | 2019-06-22 18:14 | OP ---
OPERATIVE REPORT DATE OF PROCEDURE: 06/22/2019 PREOPERATIVE DIAGNOSIS: Left hip displaced femoral neck fracture. POSTOPERATIVE DIAGNOSIS: Left hip displaced femoral neck fracture. PROCEDURE PERFORMED: Left hip hemiarthroplasty. SURGEON: Art Toribio MD. BREAKDOWN PERSON: Carlo SIMMONS. ANESTHESIA: Spinal with sedation. ESTIMATED BLOOD LOSS: 100 mL. TOURNIQUET: None. DRAINS: None. COMPLICATIONS: None apparent. DISPOSITION: Post-Anesthesia Care Unit INDICATIONS: Yamila is a very pleasant 63-year-old female who fell out of bed on 06/18/2019. She was brought via ambulance to [facility]. She was admitted to the hospital with a displaced left femoral neck fracture. She was also noted to have fairly extensive pneumonia as well. She also has other multiple medical comorbidities. She was admitted to the medical service. Subsequently she was transferred to the intensive care unit secondary to her pneumonia. She has been finally cleared by the intensive care unit service for surgery. Recommendation was for left hip hemiarthroplasty. The risks of the procedure were discussed with Yamila in detail. These risks included but were not limited to risk of infection, nerve damage, bleeding, pain, and a small risk of deep vein thrombosis which could lead to fatal pulmonary embolism. Further risks include periprosthetic fracture as well as instability in the hip postoperatively. All of Yamila's questions with regard to the risks of the procedure were answered to her satisfaction. Appropriate informed consent was obtained. DESCRIPTION OF THE PROCEDURE: The patient was identified in the preoperative holding area. Surgical site was marked by both the patient and myself. She has been on a fairly high dose of IV antibiotics in the ICU. She was then transferred to the operative suite, where she was placed supine on the operating room table. Spinal anesthetic was then administered and dosed per the anesthesia department without apparent complication. She was then placed into the right lateral decubitus position, well padded in preparation for surgery. Great care was taken to ensure that her legs were appropriately padded and that a well-padded axillary roll was placed as well. The patient's left lower extremity was then prepped and draped in the usual sterile fashion. Standard surgical pause was undertaken to ensure that appropriate preoperative antibiotics had been given and that we were operating on the correct site. All staff in the room were in agreement and we proceeded. The tip of the greater trochanter was identified. An approximate 10 cm incision extending from approximately 3 fingerbreadths proximal to the tip of the greater trochanter and 3 fingerbreadths below the tip of the greater trochanter in line with the femoral shaft was then made with a surgical pen. Incision was then made with a 10- blade scalpel. Dissection was carried down sharply to the tensor fascia. Hemostasis was achieved with electrocautery. The tensor fascia was then incised in line with the incision. Charnley retractors were then placed. This exposed the underlying trochanteric bursa. The trochanter bursa was sharply excised. The raphe between the anterior one third and and posterior two thirds of the gluteus medius minimus was identified. I then performed a Reid type anterolateral approach to the hip. The anterior third of the gluteus medius and gluteus minimus and capsule were taken off in a sleeve and retracted anteriorly. This exposed the femoral neck fracture. The template was brought in. A fresh femoral neck cut was then made utilizing a reciprocating saw. The nenana femoral head was then removed with a corkscrew device. It was then measured on the back table. It measured a size 46. A 46 trial head was then placed onto the lollipop and then placed into the hip. There was an excellent suction fit. The acetabulum was inspected. The cartilage was in excellent condition. The hip was then flexed and externally rotated over the front of her body. This exposed the proximal femur. A box office attendant was then utilized to gain access to the proximal femur. I then started with reaming. A starter reamer was then placed down the center of the femoral shaft. I then proceeded to ream the proximal femur starting with a size 7 reamer and then incrementally increasing up to a size 9 reamer. There was good cortical fit with a 9 reamer. I then proceeded to broach the proximal femur. I started with a size 7 broach and incrementally increased up to a size 9 broach. The size 9 broach had an excellent fit in the proximal femur. I then proceeded to trial. I started with a minus 3 neck and a 46 head. The hip was very carefully reduced. It was very stable. It had very minimal shuck. The leg lengths were approximately equal. The hip was very stable throughout a full range of motion. The hip was then very carefully redislocated. I made a decision to proceed with a size 9 femoral component, a 46 monopolar head and a minus 3 neck. I had the [employer] physician relations representative open a size 9 femoral stem, a minus 3 neck and a 46 monopolar head. The femoral stem was then impacted into the proximal femur. It was done in approximately 10 to 15 degrees of anteversion. The trunnion was then dried completely. The minus 3 neck was assembled onto the 46 head on the back table and then the minus 3 neck was impacted onto a dried trunnion. The hip was then reduced. Again it was very stable. It was taken through a full range of motion. There was very minimal shuck and the leg lengths were approximately equal. I then proceeded with closure. The wound was thoroughly irrigated with sterile saline solution with antibiotic added via pulse lavage. The gluteus medius, minimus and anterior capsule were repaired back to the greater trochanter utilizing transosseous interrupted suture. The raphae between the anterior one third and posterior two thirds of the gluteus medius was repaired with #1 Vicryl interrupted suture. The wound was again thoroughly irrigated with sterile saline solution with antibiotic added. The tensor fascia was then closed with a running #2 Quill suture. Subcutaneous tissue was closed with 2-0 Vicryl interrupted suture and the skin was closed with a 2-0 running subcuticular Quill suture. Dermabond was then applied to the incision. Sterile compressive dressings were applied. The patient's lower extremities were then placed in a hip abduction pillow. The patient tolerated the procedure without apparent complication. All sponge and needle counts were deemed correct prior to closure. She was transferred to the recovery room in stable condition. MMODL / IJN: [id number] /
[2019-06-22] MEDS ORDERED: ASPIRIN 325 MG TAB PO SCH (21:00)
[2019-06-22] MEDS: SENNOSIDES-DOCUSATE SODIUM 1 EACH TAB PO SCH (21:22)
[2019-06-22] MEDS: ATORVASTATIN 20 MG TAB PO SCH (21:23)
[2019-06-23] MEDS: HYDROcodone/APAP 5-325MG 1 EACH TAB PO PRN ×4 (01:18→15:51)
[2019-06-23 04:43] LABS: Basophils % (A) 0 %; Eosinophils # (A) 0.1 k/uL (0-0.7); Eosinophils % (A) 1 %; HCT 34.4 % (34.0-46.0); HGB 11.4 gm/dL (11.4-16.0); Lymphocytes # (A) 1.3 k/uL (1.0-4.8); Lymphocytes % (A) 15 %; MCH 28.9 pg (25.0-35.0); MCHC 33.3 g/dL (31.0-37.0); MCV 86.8 fL (80.0-100.0); Mean Platelet Volume 9.5; Monocytes # (A) 0.6 k/uL (0-1.0); Monocytes % (A) 7 %; Neutrophils # (A) 6.3 k/uL (1.3-7.7); Neutrophils % (A) 74 %; Platelet Count 257 k/uL (150-450); RBC 3.96 m/uL (3.80-5.40); RDW 15.1 % (11.5-15.5); WBC 8.5 k/uL (3.8-10.6)
[2019-06-23 04:54] LABS: African American GFR (CKD) >90 (>60 ml/min/1.73 sqM); Anion Gap 7 mmol/L; Blood Urea Nitrogen 20 mg/dL (7-17); Calcium 8.6 mg/dL (8.4-10.2); Carbon Dioxide 26 mmol/L (22-30); Chloride 102 mmol/L (98-107); Glucose 104 mg/dL (74-99); Non-African American GFR(CKD) >90 (>60 ml/min/1.73 sqM); Potassium 3.7 mmol/L (3.5-5.1); Sodium 135 mmol/L (137-145)
[2019-06-23] MEDS ORDERED: Potassium Replacement Protocol 1 EACH MISC MISCELLANE PRN (06:59)
[2019-06-23] MEDS: IPRATROPIUM-ALBUTEROL 3 ML NEB INHALATION SCH ×4 (07:20→18:59)
[2019-06-23] MEDS: SYMBICORT 160-4.5 MCG INHALER INHALATION SCH ×2 (07:20→18:59)
[2019-06-23] MEDS: PANTOPRAZOLE 40 MG TABLET PO SCH ×2 (07:33→17:16)
[2019-06-23] MEDS ORDERED: POTASSIUM CHLORIDE ER 20 MEQ TAB.ER PO SCH ×2 (08:00→12:30)
--- NOTE | 2019-06-23 08:38 | XR ---
EXAMINATION TYPE: XR chest 1V DATE OF EXAM: 06/23/2019 COMPARISON: NONE HISTORY: Congestive heart failure, pneumonia TECHNIQUE: Single frontal view of the chest is obtained. FINDINGS: Stable airspace opacity in the right upper lung. Stable airspace opacity in the left lower lung. Probable small left pleural effusion, also stable. No pneumothorax. IMPRESSION: Stable exam with right upper and left lower lung airspace opacities concerning for an in fectious process. No signs of fluid overload.
--- NOTE | 2019-06-23 08:49 | P.PN ---
Subjective Progress Note Date: 06/23/19 Principal diagnosis: Left femur fracture The patient is seen today 06/23/2019 in follow-up in the intensive care unit. She is currently awake and alert in no acute distress. She is maintaining O2 saturations in the mid 90s on 4 L high flow nasal cannula. She's been afebrile. Hemodynamically stable. She did undergo a left hip hemiarthroplasty yesterday. Her pain is well controlled. Urine culture was positive for E. coli and Klebsiella pneumoniae. Blood cultures reveal no growth. Bronchial wash cultures reveal no growth. White count 8.5. Hemoglobin 11.4. Creatinine 0.42. She is currently on ceftriaxone and azithromycin. She remains on Symbicort and DuoNeb inhalations. NicoDerm patch in place. She is encouraged regarding increased use of the incentive spirometer and cough and deep breathing exercises. Objective - Vital Signs Vital signs: Vital Signs Temp 98.1 F 06/23/19 00:00 Pulse 76 06/23/19 07:38 Resp 17 06/23/19 06:00 BP 126/69 06/23/19 06:00 Pulse Ox 96 06/23/19 06:00 Intake & Output 06/22/19 06/23/19 06/23/19 18:59 06:59 18:59 Intake Total 730 240 Output Total 930 530 Balance -200 -290 Weight 69.4 kg Intake: IV 680 240 Sodium Chloride 0.9% 1, 180 240 000 ml @ 20 mls/hr IV . Q24H [facility] Rx#:[id number] Intake, IV Titration 50 Amount cefTRIAXone 1 gm In 50 Sodium Chloride 0.9% 50 ml @ 100 mls/hr IVPB Q24HR [facility] Rx#:[id number] Output: Urine 830 530 Estimated Blood Loss 100 Other: Voiding Method Indwelling Catheter Indwelling Catheter - Exam GENERAL EXAM: Alert, 63 year-old female, on 4 L high flow nasal cannula, comfortable in no apparent distress. HEAD: Normocephalic. EYES: Normal reaction of pupils, equal size. NOSE: Clear with pink turbinates. THROAT: No erythema or exudates. NECK: No masses, no JVD. CHEST: No chest wall deformity. LUNGS: Equal air entry with crackles in left posterior base. CVS: S1 and S2 normal with no audible murmur, regular rhythm. ABDOMEN: No hepatosplenomegaly, normal bowel sounds, no guarding or rigidity. SPINE: No scoliosis or deformity SKIN: No rashes CENTRAL NERVOUS SYSTEM: No focal deficits, tone is normal in all 4 extremities. EXTREMITIES: Dressing to the left hip dry and intact. There is no peripheral edema. No clubbing, no cyanosis. Peripheral pulses are intact. - Labs CBC & Chem 7: 06/23/19 04:16 06/23/19 04:16 Labs: Abnormal Lab Results - Last 24 Hours (Table) 06/23/19 Range/Units 04:16 Sodium 135 L (137-145) mmol/L BUN 20 H (7-17) mg/dL Creatinine 0.42 L (0.52-1.04) mg/dL Glucose 104 H (74-99) mg/dL Microbiology - Last 24 Hours (Table) 06/20/19 10:20 Urine Culture - Final Urine,Voided Escherichia coli Klebsiella pneumoniae 06/20/19 11:42 Blood Culture - Preliminary Blood No Growth after 48 hours 06/20/19 11:57 Blood Culture - Preliminary Blood No Growth after 48 hours 06/21/19 12:00 Gram Stain - Preliminary Bronchoalviolar Lavage - Left Bronchial Washings Culture - Preliminary Assessment and Plan Assessment: #1 Recent fall with left femur fracture status post left hemiarthroplasty, postoperative day #1. #2 Urinary tract infection secondary to E. coli and Klebsiella pneumoniae. #3 Left lower lobe pneumonia with complete opacification of the left lung secondary to mucous plugging, status post bronchoscopy with BAL on 06/21/2019. Cultures show no growth thus far. #4 Hyperlipidemia. #5 Chronic tobacco dependence. #6 Mild intermittent asthma. #7 Coronary artery disease. #8 Cerebral vascular accident. #9 Hypertension. #10 Gastroesophageal reflux disease. #11 Reveals aortic valve replacement. Plan: The patient was seen and evaluated by Dr. Kimble. Chest x-ray and labs reviewed. She remains on ceftriaxone and azithromycin. Continue with bronchodilators. She is again educated regarding the importance of increased use of the incentive spirometer and cough and deep breathing exercises. She is encouraged regarding complete smoking cessation. NicoDerm patch is in place. Titrate down the FiO2 as tolerated. Hip pain is well controlled. Increase her activity as tolerated. She can be transferred out of the intensive care unit to the surgical floor. We'll continue to follow. I, the cosigning physician, performed a history & physical examination of the patient. Lungs sounds with crackles in the left lung base. Maintaining good O2 saturations in the 90s on 4 L high flow nasal cannula. I discussed the assessment and plan of care with my nurse practitioner, Rajwinder Trevino. I attest to the above note as dictated by her.
[2019-06-23] MEDS: amLODIPine 5 MG TAB PO SCH (08:52)
[2019-06-23] MEDS: ATORVASTATIN 40 MG TAB PO SCH (08:52)
[2019-06-23] MEDS: AZITHROMYCIN 500 MG TAB PO SCH (08:52)
[2019-06-23] MEDS: METOPROLOL TARTRATE 25 MG TAB PO SCH ×2 (08:53→20:03)
[2019-06-23] MEDS: NICOTINE 14MG/24HR PATCH TRANSDERM SCH (08:53)
[2019-06-23] MEDS: SODIUM CHLORIDE 0.9% 1,000 ML IV SCH (10:21)
--- NOTE | 2019-06-23 10:50 | PN ---
PROGRESS NOTE Mrs. Llamas is a 63-year-old female status post aortic valve replacement with a fall and fractured hip. She underwent surgery yesterday by Dr. Toribio and underwent left hip hemiarthroplasty. She is doing well this morning. Her breathing is stable. She denies any chest pain. She denies any dizziness or palpitation. She denies any nausea. Hemodynamically, she is stable. She continues to be at this time on Lipitor 20 mg daily, metoprolol tartrate 25 mg twice a day, amlodipine 5 mg daily, aspirin. PHYSICAL EXAMINATION: Blood pressure 126/69 with a heart rate 70s, lungs clear. Heart regular rate and rhythm. S1-S2 with prosthetic sounds, ejection type. No diastolic murmur. No rub. ABDOMEN: Soft, nontender. EXTREMITIES: No edema noted. IMPRESSION: 1. Status post fall and fractured hip. 2. Status post aortic valve replacement with a prosthetic aortic valve. 3. Hyperlipidemia. 4. Hypertension. RECOMMENDATIONS: From the cardiac standpoint : Resume Coumadin and probably aspirin. Trying to achieve an INR of 2.5-3. MMODL / IJN: [id number] /
--- NOTE | 2019-06-23 11:29 | P.PN ---
Subjective Progress Note Date: 06/23/19 Principal diagnosis: Left hip fracture Patient is seen at bedside this morning. She is postop day #1 from left hip hemiarthroplasty. She has pain at the surgical site as expected but denies any new complaints. She denies numbness, tingling or calf pain. Review of systems is negative for fever, chills, chest pain, shortness of breath or other Objective - Vital Signs Vital signs: Vital Signs Temp 98.2 F 06/23/19 08:00 Pulse 71 06/23/19 10:00 Resp 16 06/23/19 10:00 BP 129/73 06/23/19 10:00 Pulse Ox 95 06/23/19 10:00 Intake & Output 06/22/19 06/23/19 06/23/19 18:59 06:59 18:59 Intake Total 730 240 120 Output Total 930 530 135 Balance -200 -290 -15 Weight 69.4 kg Intake: IV 680 240 120 Sodium Chloride 0.9% 1, 180 240 70 000 ml @ 20 mls/hr IV . Q24H [facility] Rx#:[id number] cefTRIAXone 1 gm In 50 Sodium Chloride 0.9% 50 ml @ 100 mls/hr IVPB Q24HR [facility] Rx#:[id number] Intake, IV Titration 50 Amount cefTRIAXone 1 gm In 50 Sodium Chloride 0.9% 50 ml @ 100 mls/hr IVPB Q24HR [facility] Rx#:[id number] Output: Urine 830 530 135 Estimated Blood Loss 100 Other: Voiding Method Indwelling Catheter Indwelling Catheter Indwelling Catheter - Exam Inspection reveals a benign surgical wound. There is no active bleeding or drainage. Neurovascular status is intact throughout the lower extremity with motor and sensation fully intact. Calf is soft and nontender. 2+ dorsalis pedis pulse and less than 2 second cap refill is present. - Constitutional General appearance: Present: no acute distress - Labs CBC & Chem 7: 06/23/19 04:16 06/23/19 10:28 Labs: Abnormal Lab Results - Last 24 Hours (Table) 06/23/19 Range/Units 04:16 Sodium 135 L (137-145) mmol/L BUN 20 H (7-17) mg/dL Creatinine 0.42 L (0.52-1.04) mg/dL Glucose 104 H (74-99) mg/dL Microbiology - Last 24 Hours (Table) 06/21/19 12:00 Gram Stain - Final Bronchoalviolar Lavage - Left Bronchial Washings Culture - Final 06/20/19 10:20 Urine Culture - Final Urine,Voided Escherichia coli Klebsiella pneumoniae 06/20/19 11:42 Blood Culture - Preliminary Blood No Growth after 48 hours 06/20/19 11:57 Blood Culture - Preliminary Blood No Growth after 48 hours Assessment and Plan (1) Fracture of femoral neck, left Narrative/Plan: She will continue with routine postop orthopedic protocol including pain man agement, wound care, PT, DVT prophylaxis and medical management. Expect that he will transfer to home or rehab in next few days Current Visit: Yes Status: Acute Priority: Medium Code(s): S72.002A - FRACTURE OF UNSP PART OF NECK OF LEFT FEMUR, INIT SNOMED Code(s): 3957495 Time with Patient: Less than 30
[2019-06-23] MEDS: MULTIVITAMINS, THERA 1 EACH TAB PO SCH (12:02)
[2019-06-23] MEDS: HYDROmorphone 1 MG/ML 1 ML SYRINGE IVP PRN ×2 (12:03→21:12)
--- NOTE | 2019-06-23 12:40 | P.PN ---
Subjective Progress Note Date: 06/23/19 This is a 63-year-old female patient who presented to the ER after sustaining a fall. Patient reports that she was moving around furniture when she slipped out of bed and fell onto the left side of her body. Patient denies any loss of consciousness prior to episode. Patient denies any other injuries to head or neck. X-ray of pelvis and femur completed showing left femoral neck fracture. Pelvis x-ray completed showing left femoral neck fracture. CT of head and spine completed showing age-related atrophic and chronic small vessel ischemic changes without acute intracranial process seen at this time. No evidence for acute fracture or subluxation of the cervical spine. Patient does have a past medical history of asthma, coronary artery disease, CVA, GERD, nicotine dependence and heart valve replacement in which she is managed on Coumadin. Patient reports that she follows with her lowerator operator regularly but unable to recall when her last 2-D echo or stress test was. Patient reports that her valve replacement was possibly 10 years ago. INR on admission 1.4. Coumadin currently on hold. Due to patient's cardiac history will consult cardiology services for cardiac clearance prior to surgery. 2-D echo has been ordered. Patient having some discomfort to left hip area. Patient denies chest pain or shortness of breath. Patient denies nausea vomiting or diarrhea. Patient denies any urinary burning or frequency. Patient denies any recent illness. Patient denies any significan t history of blood clots to legs or lungs. Patient denies history of irregular heart rhythm. On 06/20/2019 patient is alert and oriented 3. Patient had chest x-ray completed yesterday showing correlation for left lower lobe atelectasis first pneumonia and associated effusion. Ascending aortic aneurysm underlying emphysema. Patient also having elevated white count this a.m. 13.3. Pulmonary services have been consulted. Discussed case with cardiology [employer]AR[employer] SUPER[employer]. Per pulmonary will hold off on surgery for 2 days so patient can receive antibiotics for pneumonia and possible UTI. Patient was thoroughly evaluated by cardiology service is currently on Lovenox bridging tissue bioprosthetic valve. At this time patient denies chest pain or shortness of breath. Patient denies nausea vomiting or diarrhea. Patient denies any urinary burning or frequency On 06/21/2019 patient is alert and oriented 3. Repeat chest x-ray this morning showing probable development of sizable left pleural effusion and atelectasis as there may be underlying pneumonia. Chest ultrasound ordered. Lasix ordered per cardiology. Patient remains on Rocephin and azithromycin. Patient remains on Lovenox for bioprosthetic valve. Patient requiring more oxygen per nursing staff this was discussed with pulmonary services. Blood sputum cultures ordered. Patient denies chest pain. Patient reports some shortness of breath. Patient denies nausea vomiting or diarrhea. Patient denies any urinary burning or frequency On 06/22/2019 patient is alert and oriented 3. Patient was transferred to the intensive care unit yesterday for bronchoscopy per pulmonary. Post chest x-ray shows improved. Oxygen demand have been decreased. Per pulmonary services patient may proceed with surgery of left hip repair today. At this time patient is resting comfortably in bed. Patient study some increased pain to left hip. Patient denies nausea vomiting diarrhea. Patient denies any urinary burning or frequency On 06/23/2019 patient was seen and examined in the intensive care unit she is alert and oriented 3 in no apparent distress she underwent surgery on the left hip yesterday and is doing well postoperatively she is complaining of pain in the left lower extremity otherwise she denies any complaints there is no fever or chills no headache or dizziness no chest pain no shortness of breath no cough no nausea or vomiting no abdominal pain no diarrhea no burning with urination no frequency or urgency and no hematuria Objective - Vital Signs Vital signs: Vital Signs Temp 98.0 F 06/23/19 12:00 Pulse 77 06/23/19 12:00 Resp 17 06/23/19 12:00 BP 143/75 06/23/19 12:00 Pulse Ox 92 L 06/23/19 12:00 Intake & Output 06/22/19 06/23/19 06/23/19 18:59 06:59 18:59 Intake Total 730 240 400 Output Total 930 530 235 Balance -200 -290 165 Weight 69.4 kg Intake: IV 680 240 160 Sodium Chloride 0.9% 1, 180 240 110 000 ml @ 20 mls/hr IV . Q24H [facility] Rx#:[id number] cefTRIAXone 1 gm In 50 Sodium Chloride 0.9% 50 ml @ 100 mls/hr IVPB Q24HR [facility] Rx#:[id number] Intake, IV Titration 50 Amount cefTRIAXone 1 gm In 50 Sodium Chloride 0.9% 50 ml @ 100 mls/hr IVPB Q24HR [facility] Rx#:[id number] Oral 240 Output: Urine 830 530 235 Estimated Blood Loss 100 Other: Voiding Method Indwelling Catheter Indwelling Catheter Indwelling Catheter - Exam In general patient is alert and oriented 3 in no apparent distress HEENT head normocephalic and atraumatic Neck is supple no JVD no goiter no lymphadenopathy Chest exam reveals a few scattered crackles no wheezing Cardiac exam reveals regular heart sounds S1 and S2 with prosthetic sound no gallops no murmurs Extremity exam reveals no edema no cyanosis or clubbing Neurological examination reveals no gross focal deficit - Labs CBC & Chem 7: 06/23/19 04:16 06/23/19 10:28 Labs: Abnormal Lab Results - Last 24 Hours (Table) 06/23/19 Range/Units 04:16 Sodium 135 L (137-145) mmol/L BUN 20 H (7-17) mg/dL Creatinine 0.42 L (0.52-1.04) mg/dL Glucose 104 H (74-99) mg/dL Microbiology - Last 24 Hours (Table) 06/21/19 12:00 Gram Stain - Final Bronchoalviolar Lavage - Left Bronchial Washings Culture - Final 06/20/19 10:20 Urine Culture - Final Urine,Voided Escherichia coli Klebsiella pneumoniae 06/20/19 11:42 Blood Culture - Preliminary Blood No Growth after 48 hours 06/20/19 11:57 Blood Culture - Preliminary Blood No Growth after 48 hours Assessment and Plan Plan: 1. Fall with left femur neck fracture. hip x-ray completed showing left femur neck fracture. Patient has been admitted to orthopedic service and plans for left hip hemiarthroplasty for left normal neck fracture per orthopedic services. At this time surgery on hold due to pulmonary request for concerns of possible pneumonia 2. History of mechanical valve maintained on Coumadin. Coumadin on hold. Patient was ago by cardiology services 2-D echo reviewed recommend bridging with anticoagulation of Lovenox prior to surgery and thereafter. Per cardiology Lovenox should be continued until 8 hours prior to surgery and continued thereafter for 3 days along with daily Coumadin dosing to start R[place] after surgery. 3. Left lower lobe pneumonia. Chest x-ray completed showing correlation for left lower lobe atelectasis or pneumonia and associated effusion. Ascending aortic aneurysm underlying emphysema. Pulmonary services have been consulted. Discussed case with pulmonary nurse practitioner. Pulmonary services would like to hold off on surgery for 2 days for patient to receive antibiotics. Rocephin and azithromycin ordered. Sputum and blood culture ordered. Repeat chest x-ray showing complete presedation of the left lung. Patient underwent bronchoscopy with BAL on June 21. 4. Urinary tract infection present on admission. Patient started on Rocephin. urine culture ordered 5. Left pleural effusion. Chest x-ray showing probable development of sizable left pleural effusion and atelectasis may be underlying pneumonia. Fluids DC'd. Patient given Lasix 60 mg once per cardiology. pulmonary service is aware 6. History of GERD 7. History of coronary artery disease 8. History of nicotine dependence currently half a pack a day smoker. Nicotine patch has been ordered patient educated greater than 3 minutes on smoking cessation 9. History of CVA 10. Peripheral vascular disease status post bilateral carotid artery endarterectomy. Carotid Doppler completed showing hemodynamic significant stenosis of the proximal right internal carotid arteries bilaterally by Doppler criteria an indirect measurement of the carotid stenosis corresponding to approximately 50-69% diameter reduction right greater than left. 11. Hypokalemia. replace per protocol. potassium 3.3. Resolved DVT prophylaxis on Coumadin resumed. GI prophylaxis Protonix Patient remains in the intensive care unit. Recommend monitoring in the intensive care unit postoperatively due to multiple comorbid conditions Surgery done yesterday without reported complications Continue to monitor closely Cardiology are following and will decide on Lovenox bridging until Coumadin is therapeutic
[2019-06-23] MEDS: MORPHINE SULFATE 4 MG/ML SYRINGE IV PRN (13:26)
[2019-06-23] MEDS ORDERED: INFLUENZA VACCINE (6 MOS+) 60 MCG/0.5 ML SYRINGE IM ONE (14:33)
[2019-06-23] MEDS ORDERED: WARFARIN 5 MG TAB PO ONE (18:00)
[2019-06-23] MEDS: traMADol 50 MG TAB PO PRN (19:07)
[2019-06-23] MEDS: SENNOSIDES-DOCUSATE SODIUM 1 EACH TAB PO SCH (20:03)
[2019-06-24] MEDS: HYDROcodone/APAP 5-325MG 1 EACH TAB PO PRN ×3 (05:04→19:16)
[2019-06-24 05:13] LABS: Basophils % (A) 0 %; Eosinophils % (A) 0 %; HCT 31.8 % (34.0-46.0); HGB 10.6 gm/dL (11.4-16.0); Lymphocytes # (A) 1.1 k/uL (1.0-4.8); Lymphocytes % (A) 11 %; MCH 28.9 pg (25.0-35.0); MCHC 33.4 g/dL (31.0-37.0); MCV 86.6 fL (80.0-100.0); Mean Platelet Volume 9.3; Monocytes # (A) 0.8 k/uL (0-1.0); Monocytes % (A) 8 %; Neutrophils # (A) 7.6 k/uL (1.3-7.7); Neutrophils % (A) 77 %; Platelet Count 292 k/uL (150-450); RBC 3.67 m/uL (3.80-5.40); RDW 15.2 % (11.5-15.5); WBC 9.8 k/uL (3.8-10.6)
[2019-06-24 05:16] LABS: Prothrombin Time 10.9 sec (9.0-12.0)
[2019-06-24 05:41] LABS: ALT 27 U/L (9-52); AST 29 U/L (14-36); African American GFR (CKD) >90 (>60 ml/min/1.73 sqM); Albumin 2.7 g/dL (3.5-5.0); Alkaline Phosphatase 67 U/L (38-126); Anion Gap 7 mmol/L; Blood Urea Nitrogen 16 mg/dL (7-17); Calcium 8.5 mg/dL (8.4-10.2); Carbon Dioxide 28 mmol/L (22-30); Chloride 99 mmol/L (98-107); Glucose 118 mg/dL (74-99); Non-African American GFR(CKD) >90 (>60 ml/min/1.73 sqM); Potassium 4.2 mmol/L (3.5-5.1); Sodium 134 mmol/L (137-145); Total Bilirubin 0.5 mg/dL (0.2-1.3); Total Protein 5.3 g/dL (6.3-8.2)
[2019-06-24] MEDS: SYMBICORT 160-4.5 MCG INHALER INHALATION SCH ×2 (07:25→19:44)
[2019-06-24] MEDS: IPRATROPIUM-ALBUTEROL 3 ML NEB INHALATION SCH ×4 (07:25→19:44)
[2019-06-24] MEDS: PANTOPRAZOLE 40 MG TABLET PO SCH ×2 (08:26→17:07)
[2019-06-24] MEDS: ATORVASTATIN 40 MG TAB PO SCH (08:26)
[2019-06-24] MEDS: NICOTINE 14MG/24HR PATCH TRANSDERM SCH (08:26)
[2019-06-24] MEDS: MULTIVITAMINS, THERA 1 EACH TAB PO SCH (08:26)
[2019-06-24] MEDS: METOPROLOL TARTRATE 25 MG TAB PO SCH ×2 (08:26→20:33)
[2019-06-24] MEDS: traMADol 50 MG TAB PO PRN ×2 (08:26→17:07)
[2019-06-24] MEDS: amLODIPine 5 MG TAB PO SCH (08:27)
[2019-06-24] MEDS: AZITHROMYCIN 500 MG TAB PO SCH (08:27)
[2019-06-24] MEDS: SODIUM CHLORIDE 0.9% 1,000 ML IV SCH (11:40)
--- NOTE | 2019-06-24 12:13 | PN ---
PROGRESS NOTE PULMONARY/CRITICAL CARE PROGRESS NOTE: DATE OF SERVICE: 06/24/2019 This is a 63-year-old female status post recent fall with left femur fracture. She is postop day #2, status post left hemiarthroplasty. She also was found to have urinary tract infection secondary to both Escherichia coli and Klebsiella pneumoniae. In addition, she had left lower lobe pneumonia and then developed complete opacification of the left lung secondary to mucous plugging requiring bronchoscopy and BAL in the ICU on June 21. Currently, she is doing reasonably well. She is feeling better. She has still got a wet congested cough. She is on a couple liters of O2. Her primary problem is left hip pain from the surgery. I believe Dr. Toribio did the surgery. She has a history of hyperlipidemia, previous tobacco use, mild intermittent asthma, CAD, CVA, hypertension, GERD, and aortic valve replacement. PHYSICAL EXAMINATION: VITAL SIGNS: Currently, vital signs are reviewed. Temperature is 97.7, heart rate 72, respiratory rate 16, blood pressure 104/65, mean 78, 2 L saturation 98%. Appears in no acute distress. HEENT examination is grossly unremarkable. Mucous membranes are moist. No oral lesions. NECK: Supple. Full range of motion. No adenopathy. Neck veins are flat. CARDIOVASCULAR examination reveals regular rhythm and rate. S1, S2 normal. No S3, S4, or murmur. LUNGS: A few scattered rhonchi. Breath sounds equal. No wheezes. No crackles. ABDOMEN: Soft. Bowel sounds are heard. EXTREMITIES are intact. Pain over the surgical site of the left hip. No cyanosis, clubbing, or edema. SKIN: Without rash. NEUROLOGIC: Examination is nonfocal. LABS: Reviewed. White count 9.8, hemoglobin 10.6, hematocrit 31.8, platelet count normal. PT/INR normal. Sodium 134, potassium 4.2, chloride 99, CO2 is 28, anion gap is 7. BUN and creatinine were 16 and 0.46. No chest x-ray today. Microbiologic studies show E coli and Klebsiella pneumoniae in the urine from June 20. Bronch washes are thus far negative or pending. ASSESSMENT: 1. Status post recent fall with left femur fracture, status post left hemiarthroplasty, postop day #2. 2. Urinary tract infection secondary to both Escherichia coli and Klebsiella pneumoniae. 3. Left lower lobe pneumonia, status post bronchoscopy and BAL on June 21 for complete opacification of the left hemithorax secondary to mucus plugging. 4. Hyperlipidemia. 5. Chronic tobacco dependence. 6. Mild intermittent asthma. 7. Coronary artery disease. 8. Cerebrovascular accident. 9. Hypertension. 10.Gastroesophageal reflux disease. 11.Aortic valve replacement. PLAN: The patient is doing reasonably well. We will continue to follow. Prognosis is guarded. We recommend deep breathing, coughing, clearing of secretions. Continue antibiotics and hourly use of the incentive spirometer. MMODL / IJN: [id number] /
--- NOTE | 2019-06-24 12:28 | PN ---
PROGRESS NOTE Mrs. Llamas is a 63-year-old female status post aortic valve replacement with a [facility], history of hyperlipidemia and hypertension, who fell and fractured her left hip. She underwent hemiarthroplasty. She is doing well this morning. Her breathing is stable. She denies any chest pain. She has no dizziness. No palpitation. She denies any nausea or vomiting. She denies any cough. She continues to be on amlodipine 5 mg daily, Lipitor 40 mg daily, metoprolol tartrate 25 mg twice a day and was started on Coumadin yesterday. PHYSICAL EXAMINATION: Blood pressure 104/60 with a heart in the 80s. LUNGS: Clear. HEART: Regular rhythm S1-S2 with prosthetic aortic sound. No diastolic murmur. ABDOMEN: Soft, nontender. EXTREMITIES: No significant edema. IMPRESSION: 1. Status post left hip fracture status post surgery. 2. Status post aortic valve replacement with a prosthetic [facility] valve. 3. Hyperlipidemia. RECOMMENDATION: We will continue on the Coumadin, trying to achieve an INR of closer to 3. I will not bridge her with Lovenox at this time because of the increased risk of bleeding as well as the fact that she has an aortic prosthetic valve of the [facility] type. I will check her INR and depending on her progress further recommendations will be made. MMODL / IJN: [id number] /
--- NOTE | 2019-06-24 13:02 | P.PN ---
Subjective Progress Note Date: 06/24/19 This is a 63-year-old female patient who presented to the ER after sustaining a fall. Patient reports that she was moving around furniture when she slipped out of bed and fell onto the left side of her body. Patient denies any loss of consciousness prior to episode. Patient denies any other injuries to head or neck. X-ray of pelvis and femur completed showing left femoral neck fracture. Pelvis x-ray completed showing left femoral neck fracture. CT of head and spine completed showing age-related atrophic and chronic small vessel ischemic changes without acute intracranial process seen at this time. No evidence for acute fracture or subluxation of the cervical spine. Patient does have a past medical history of asthma, coronary artery disease, CVA, GERD, nicotine dependence and heart valve replacement in which she is managed on Coumadin. Patient reports that she follows with her rough carpenter regularly but unable to recall when her last 2-D echo or stress test was. Patient reports that her valve replacement was possibly 10 years ago. INR on admission 1.4. Coumadin currently on hold. Due to patient's cardiac history will consult cardiology services for cardiac clearance prior to surgery. 2-D echo has been ordered. Patient having some discomfort to left hip area. Patient denies chest pain or shortness of breath. Patient denies nausea vomiting or diarrhea. Patient denies any urinary burning or frequency. Patient denies any recent illness. Patient denies any significan t history of blood clots to legs or lungs. Patient denies history of irregular heart rhythm. On 06/20/2019 patient is alert and oriented 3. Patient had chest x-ray completed yesterday showing correlation for left lower lobe atelectasis first pneumonia and associated effusion. Ascending aortic aneurysm underlying emphysema. Patient also having elevated white count this a.m. 13.3. Pulmonary services have been consulted. Discussed case with cardiology [facility] [employer]. Per pulmonary will hold off on surgery for 2 days so patient can receive antibiotics for pneumonia and possible UTI. Patient was thoroughly evaluated by cardiology service is currently on Lovenox bridging tissue bioprosthetic valve. At this time patient denies chest pain or shortness of breath. Patient denies nausea vomiting or diarrhea. Patient denies any urinary burning or frequency On 06/21/2019 patient is alert and oriented 3. Repeat chest x-ray this morning showing probable development of sizable left pleural effusion and atelectasis as there may be underlying pneumonia. Chest ultrasound ordered. Lasix ordered per cardiology. Patient remains on Rocephin and azithromycin. Patient remains on Lovenox for bioprosthetic valve. Patient requiring more oxygen per nursing staff this was discussed with pulmonary services. Blood sputum cultures ordered. Patient denies chest pain. Patient reports some shortness of breath. Patient denies nausea vomiting or diarrhea. Patient denies any urinary burning or frequency On 06/22/2019 patient is alert and oriented 3. Patient was transferred to the intensive care unit yesterday for bronchoscopy per pulmonary. Post chest x-ray shows improved. Oxygen demand have been decreased. Per pulmonary services patient may proceed with surgery of left hip repair today. At this time patient is resting comfortably in bed. Patient study some increased pain to left hip. Patient denies nausea vomiting diarrhea. Patient denies any urinary burning or frequency On 06/23/2019 patient was seen and examined in the intensive care unit she is alert and oriented 3 in no apparent distress she underwent surgery on the left hip yesterday and is doing well postoperatively she is complaining of pain in the left lower extremity otherwise she denies any complaints there is no fever or chills no headache or dizziness no chest pain no shortness of breath no cough no nausea or vomiting no abdominal pain no diarrhea no burning with urination no frequency or urgency and no hematuria. On 06/24/2019 patient was seen and examined on the medical floor she is alert an d oriented 3 in no apparent distress, she is still complaining of pain in her left lower extremity otherwise she denies any complaints there is no fever or chills no headache or dizziness no chest pain no shortness of breath no cough no nausea or vomiting no abdominal pain no diarrhea no burning with urination no frequency or urgency and no hematuria Objective - Vital Signs Vital signs: Vital Signs Temp 97.7 F 06/24/19 07:00 Pulse 72 06/24/19 11:20 Resp 16 06/24/19 07:00 BP 104/65 06/24/19 07:00 Pulse Ox 98 06/24/19 07:00 Intake & Output 06/23/19 06/24/19 06/24/19 18:59 06:59 18:59 Intake Total 440 740 Output Total 510 480 Balance -70 260 Intake: IV 200 160 Sodium Chloride 0.9% 1, 150 160 000 ml @ 20 mls/hr IV . Q24H [facility] Rx#:[id number] cefTRIAXone 1 gm In 50 Sodium Chloride 0.9% 50 ml @ 100 mls/hr IVPB Q24HR [facility] Rx#:[id number] Oral 240 580 Output: Urine 510 480 Other: Voiding Method Indwelling Catheter Indwelling Catheter Indwelling Catheter - Exam In general patient is alert and oriented 3 in no apparent distress HEENT head normocephalic and atraumatic Neck is supple no JVD no goiter no lymphadenopathy Chest exam reveals a few scattered crackles no wheezing Cardiac exam reveals regular heart sounds S1 and S2 with prosthetic sound no gallops no murmurs Extremity exam reveals no edema no cyanosis or clubbing Neurological examination reveals no gross focal deficit - Labs CBC & Chem 7: 06/24/19 04:29 06/24/19 04:29 Labs: Abnormal Lab Results - Last 24 Hours (Table) 06/24/19 06/24/19 Range/Units 04:29 04:29 RBC 3.67 L (3.80-5.40) m/uL Hgb 10.6 L (11.4-16.0) gm/dL Hct 31.8 L (34.0-46.0) % Sodium 134 L (137-145) mmol/L Creatinine 0.46 L (0.52-1.04) mg/dL Glucose 118 H (74-99) mg/dL Total Protein 5.3 L (6.3-8.2) g/dL Albumin 2.7 L (3.5-5.0) g/dL Microbiology - Last 24 Hours (Table) 06/20/19 11:42 Blood Culture - Preliminary Blood No Growth after 72 hours 06/20/19 11:57 Blood Culture - Preliminary Blood No Growth after 72 hours 06/21/19 12:00 Gram Stain - Final Bronchoalviolar Lavage - Left Bronchial Washings Culture - Final Assessment and Plan Plan: 1. Fall with left femur neck fracture. hip x-ray completed showing left femur neck fracture. Patient has been admitted to orthopedic service and plans for left hip hemiarthroplasty for left normal neck fracture per orthopedic services. At this time surgery on hold due to pulmonary request for concerns of possible pneumonia 2. History of mechanical valve maintained on Coumadin. Coumadin on hold. Patient was ago by cardiology services 2-D echo reviewed recommend bridging with anticoagulation of Lovenox prior to surgery and thereafter. Per cardiology Love nox should be continued until 8 hours prior to surgery and continued thereafter for 3 days along with daily Coumadin dosing to start RIVER after surgery. 3. Left lower lobe pneumonia. Chest x-ray completed showing correlation for left lower lobe atelectasis or pneumonia and associated effusion. Ascending aortic aneurysm underlying emphysema. Pulmonary services have been consulted. Discussed case with pulmonary nurse practitioner. Pulmonary services would like to hold off on surgery for 2 days for patient to receive antibiotics. Rocephin and azithromycin ordered. Sputum and blood culture ordered. Repeat chest x-ray showing complete presedation of the left lung. Patient underwent bronchoscopy with BAL on June 21. 4. Urinary tract infection present on admission. Patient started on Rocephin. urine culture ordered 5. Left pleural effusion. Chest x-ray showing probable development of sizable left pleural effusion and atelectasis may be underlying pneumonia. Fluids DC'd. Patient given Lasix 60 mg once per cardiology. pulmonary service is aware 6. History of GERD 7. History of coronary artery disease 8. History of nicotine dependence currently half a pack a day smoker. Nicotine patch has been ordered patient educated greater than 3 minutes on smoking cessat ion 9. History of CVA 10. Peripheral vascular disease status post bilateral carotid artery endar terectomy. Carotid Doppler completed showing hemodynamic significant stenosis of the proximal right internal carotid arteries bilaterally by Doppler criteria an indirect measurement of the carotid stenosis corresponding to approximately 50-69% diameter reduction right greater than left. 11. Hypokalemia. replace per protocol. potassium 3.3. Resolved. 12. Physical debility Will consult Dr. Alanis for possible admission to rehab unit DVT prophylaxis on Coumadin resumed. GI prophylaxis Protonix Patient remains in the intensive care unit. Recommend monitoring in the intensive care unit postoperatively due to multiple comorbid conditions Surgery done yesterday without reported complications Continue to monitor closely Cardiology are following and will decide on Lovenox bridging until Coumadin is therapeutic
[2019-06-24] MEDS ORDERED: WARFARIN 7.5 MG TAB PO ONE (18:00)
--- NOTE | 2019-06-24 18:35 | P.PN ---
Subjective Progress Note Date: 06/24/19 Principal diagnosis: Left hip fracture Patient is seen at bedside this morning. She is postop day #2 from left hip hemiarthroplasty. She has pain at the surgical site as expected but denies any new complaints. She denies numbness, tingling or calf pain. Review of systems is negative for fever, chills, chest pain, shortness of breath or other Objective - Vital Signs Vital signs: Vital Signs Temp 98.3 F 06/24/19 14:45 Pulse 76 06/24/19 15:53 Resp 17 06/24/19 14:45 BP 97/66 06/24/19 14:45 Pulse Ox 97 06/24/19 14:45 Intake & Output 06/23/19 06/24/19 06/24/19 18:59 06:59 18:59 Intake Total 440 740 Output Total 510 480 750 Balance -70 260 -750 Intake: IV 200 160 Sodium Chloride 0.9% 1, 150 160 000 ml @ 20 mls/hr IV . Q24H [facility] Rx#:[id number] cefTRIAXone 1 gm In 50 Sodium Chloride 0.9% 50 ml @ 100 mls/hr IVPB Q24HR [facility] Rx#:[id number] Oral 240 580 Output: Urine 510 480 750 Other: Voiding Method Indwelling Catheter Indwelling Catheter Indwelling Catheter - Exam Inspection reveals a benign surgical wound. There is no active bleeding or drainage. Neurovascular status is intact throughout the lower extremity with motor and sensation fully intact. Calf is soft and nontender. 2+ dorsalis pedis pulse and less than 2 second cap refill is present. - Constitutional General appearance: Present: no acute distress - Labs CBC & Chem 7: 06/24/19 04:29 06/24/19 04:29 Labs: Abnormal Lab Results - Last 24 Hours (Table) 06/24/19 06/24/19 Range/Units 04:29 04:29 RBC 3.67 L (3.80-5.40) m/uL Hgb 10.6 L (11.4-16.0) gm/dL Hct 31.8 L (34.0-46.0) % Sodium 134 L (137-145) mmol/L Creatinine 0.46 L (0.52-1.04) mg/dL Glucose 118 H (74-99) mg/dL Total Protein 5.3 L (6.3-8.2) g/dL Albumin 2.7 L (3.5-5.0) g/dL Microbiology - Last 24 Hours (Table) 06/20/19 11:57 Blood Culture - Preliminary Blood No Growth after 96 hours 06/20/19 11:42 Blood Culture - Preliminary Blood No Growth after 96 hours Assessment and Plan (1) Fracture of femoral neck, left Narrative/Plan: She will continue with routine postop orthopedic protocol including pain management, wound care, PT, DVT prophylaxis and medical management. She may transfer to ECF or home from orthopedic standpoint when ok with IM. Current Visit: Yes Status: Acute Priority: Medium Code(s): S72.002A - FRACTURE OF UNSP PART OF NECK OF LEFT FEMUR, INIT SNOMED Code(s): 4603175 Time with Patient: Less than 30
[2019-06-24] MEDS: HYDROmorphone 1 MG/ML 1 ML SYRINGE IVP PRN (20:33)
[2019-06-24] MEDS: SENNOSIDES-DOCUSATE SODIUM 1 EACH TAB PO SCH (20:33)
[2019-06-25] MEDS: HYDROmorphone 1 MG/ML 1 ML SYRINGE IVP PRN ×3 (04:27→13:18)
--- NOTE | 2019-06-25 06:26 | P.CONS ---
History of Present Illness - Chief Complaint Walking difficulty - History of Present Illness I had the opportunity to see patient for inpatient rehab consultation with regard to walking difficulty. She was admitted to [facility] June 19 with left hip pain. X-ray demonstrated femoral neck fracture. Evaluated by cardiology and Dr. Kimble. On June 22 underwent left hip surgery Dr. Toribio. Chest x-rays followed note stable airspace disease. Postoperative hip x-ray done. PT and OT prescribed. Previous functional history as elicited from patient: 63-year-old right-handed white female who is lives in one floor home with son and sister. Patient on disability. Describes independent with cooking, laundry, driving, sitdown shower and gait without device. Smokes a half pack per day denies alcohol. Family history mother with stroke and hypertension. Review of Systems Review of systems: ENT: Denies sneezes or discharge. Eyes: Denies discharge or photophobia. Cardiac: Denies chest pain or palpitation. Pulmonary: Denies cough or shortness of breath. Breast: Denies discharge or lumps. Gastrointestinal: Denies nausea, emesis, constipation, diarrhea. Genitourinary: Denies discharge or frequency. Musculoskeletal: Left leg discomfort but thought it was the knee, not the hip. Neurologic: Denies motor or sensory change. Endocrine: Denies shakes or sweats. Oncology: Denies cancers. Dermatologic: Denies rash, itching, pruritus. ALLERGY/immunology: Denies sneezes, rashes. Past Medical History Past Medical History: Asthma, Coronary Artery Disease (CAD), CVA/TIA, GERD/Reflux Additional Past Medical History / Comment(s): back pain History of Any Multi-Drug Resistant Organisms: None Reported Additional Past Surgical History / Comment(s): carotid endarectomy, abdominal, heart valve Past Psychological History: No Psychological Hx Reported Smoking Status: Current every day smoker Past Alcohol Use History: None Reported Past Drug Use History: None Reported - Past Family History Mother History Unknown: Yes Medications and Allergies Home Medications Medication Instructions Recorded Confirmed Type HYDROcodone/APAP 5-325MG [[place] 1 tab PO Q8H PRN 12/17/15 06/18/19 History 5-325] Omeprazole 40 mg PO BID 12/17/15 06/18/19 History Simvastatin [Zocor] 40 mg PO HS 12/17/15 06/18/19 History Zolpidem [Ambien] 5 mg PO HS PRN 12/17/15 06/18/19 History Warfarin Sodium 5 mg PO SUMOTUWETHSA 06/18/19 06/18/19 History Warfarin [Coumadin] 7.5 mg PO FR 06/18/19 06/18/19 History Allergies Allergy/AdvReac Type Severity Reaction Status Date / Time mold Allergy Wheezing Verified 06/18/19 20:29 Physical Exam Vitals: Vital Signs Temp Pulse Pulse Resp BP Pulse Ox 06/25/19 01:20 98.1 F 75 18 122/76 98 06/24/19 20:00 97.5 F L 82 18 103/57 96 06/24/19 19:58 74 06/24/19 19:46 72 06/24/19 15:53 76 06/24/19 15:43 77 06/24/19 14:45 98.3 F 77 17 97/66 97 06/24/19 11:20 72 06/24/19 11:11 68 06/24/19 07:40 72 06/24/19 07:29 76 06/24/19 07:00 97.7 F 81 16 104/65 98 Intake and Output 06/24/19 06/24/19 06/25/19 14:59 22:59 06:59 Intake Total 310 160 Output Total 600 150 800 Balance -600 160 -640 Intake: IV 70 Sodium Chloride 0.9% 1, 70 000 ml @ 20 mls/hr IV . Q24H [facility] Rx#:[id number] Intake, IV Titration 160 Amount Sodium Chloride 0.9% 1, 160 000 ml @ 20 mls/hr IV . Q24H [facility] Rx#:[id number] Oral 240 Output: Urine 600 150 800 Other: Voiding Method Indwelling Catheter Indwelling Catheter Skin: Atrophic, intact. General: Thin build and comfortable appearance. Head: Normocephalic, atraumatic. Eyes: Symmetric. Pupils equal round. Ears: Symmetric. Hearing within normal limits. Mouth: Clear. Neck: Supple. Carotid without bruit. Cardiac: Regular rate and rhythm. Lungs: Clear anteriorly and posteriorly. Abdomen: Soft active nontender. Extremities: Normal tone. Neurological: Mental status: Alert, cooperative, pleasant. Cranial nerves: Symmetric facial tone and trapezius. Motor: Normal strength and isolation both arms and right leg. Left leg poor due to left hip discomfort. Active movement left ankle. Sensation: Intact throughout. DTRs: Symmetric and equal throughout. Mobility: Requires assistance for bed mobility. Results CBC & Chem 7: 06/24/19 04:29 06/24/19 04:29 Labs: Microbiology - Last 24 Hours (Table) 06/20/19 11:57 Blood Culture - Preliminary Blood No Growth after 96 hours 06/20/19 11:42 Blood Culture - Preliminary Blood No Growth after 96 hours Assessment and Plan (1) Fracture of femoral neck, left Current Visit: Yes Status: Acute Priority: Medium Code(s): S72.002A - FRACTURE OF UNSP PART OF NECK OF LEFT FEMUR, INIT SNOMED Code(s): 9322832 Plan: Impression: 1. Walking will. 2. Left femoral neck fractures, status post operative repair. 3. Coronary disease. 4. History of stroke. 5. Asthma. Comments and plan: PT and OT prescribed. I was unable to find any therapy notes. We will required her therapy notes for any possible inpatient rehab.
[2019-06-25] MEDS: MULTIVITAMINS, THERA 1 EACH TAB PO SCH (07:15)
[2019-06-25] MEDS: PANTOPRAZOLE 40 MG TABLET PO SCH ×2 (07:15→17:35)
[2019-06-25] MEDS: ATORVASTATIN 40 MG TAB PO SCH (07:15)
[2019-06-25] MEDS: NICOTINE 14MG/24HR PATCH TRANSDERM SCH (07:15)
[2019-06-25] MEDS: AZITHROMYCIN 500 MG TAB PO SCH (07:15)
[2019-06-25] MEDS: METOPROLOL TARTRATE 25 MG TAB PO SCH ×2 (07:15→20:07)
[2019-06-25] MEDS: amLODIPine 5 MG TAB PO SCH (07:15)
[2019-06-25 07:47] LABS: INR 1.5 (<1.2); Prothrombin Time 15.4 sec (9.0-12.0)
[2019-06-25] MEDS: SYMBICORT 160-4.5 MCG INHALER INHALATION SCH ×2 (09:05→21:01)
[2019-06-25] MEDS: IPRATROPIUM-ALBUTEROL 3 ML NEB INHALATION SCH ×4 (09:05→21:01)
--- NOTE | 2019-06-25 10:38 | P.PN ---
Subjective Progress Note Date: 06/25/19 This is a 63-year-old female patient who presented to the ER after sustaining a fall. Patient reports that she was moving around furniture when she slipped out of bed and fell onto the left side of her body. Patient denies any loss of consciousness prior to episode. Patient denies any other injuries to head or neck. X-ray of pelvis and femur completed showing left femoral neck fracture. Pelvis x-ray completed showing left femoral neck fracture. CT of head and spine completed showing age-related atrophic and chronic small vessel ischemic changes without acute intracranial process seen at this time. No evidence for acute fracture or subluxation of the cervical spine. Patient does have a past medical history of asthma, coronary artery disease, CVA, GERD, nicotine dependence and heart valve replacement in which she is managed on Coumadin. Patient reports that she follows with her transition manager regularly but unable to recall when her last 2-D echo or stress test was. Patient reports that her valve replacement was possibly 10 years ago. INR on admission 1.4. Coumadin currently on hold. Due to patient's cardiac history will consult cardiology services for cardiac clearance prior to surgery. 2-D echo has been ordered. Patient having some discomfort to left hip area. Patient denies chest pain or shortness of breath. Patient denies nausea vomiting or diarrhea. Patient denies any urinary burning or frequency. Patient denies any recent illness. Patient denies any significant history of blood clots to legs or lungs. Patient denies history of irregular heart rhythm. On 06/20/2019 patient is alert and oriented 3. Patient had chest x-ray completed yesterday showing correlation for left lower lobe atelectasis first pneumonia and associated effusion. Ascending aortic aneurysm underlying emphysema. Patient also having elevated white count this a.m. 13.3. Pulmonary services have been consulted. 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 Per pulmonary will hold off on surgery for 2 days so patient can receive antibiotics for pneumonia and possible UTI. Patient was thoroughly evaluated by cardiology service is currently on Lovenox bridging tissue bioprosthetic valve. At this time patient denies chest pain or shortness of breath. Patient denies nausea vomiting or diarrhea. Patient denies any urinary burning or frequency On 06/21/2019 patient is alert and oriented 3. Repeat chest x-ray this morning showing probable development of sizable left pleural effusion and atelectasis as there may be underlying pneumonia. Chest ultrasound ordered. Lasix ordered per cardiology. Patient remains on Rocephin and azithromycin. Patient remains on Lovenox for bioprosthetic valve. Patient requiring more oxygen per nursing staff this was discussed with pulmonary services. Blood sputum cultures ordered. Patient denies chest pain. Patient reports some shortness of breath. Patient denies nausea vomiting or diarrhea. Patient denies any urinary burning or frequency On 06/22/2019 patient is alert and oriented 3. Patient was transferred to the intensive care unit yesterday for bronchoscopy per pulmonary. Post chest x-ray shows improved. Oxygen demand have been decreased. Per pulmonary services patient may proceed with surgery of left hip repair today. At this time patient is resting comfortably in bed. Patient study some increased pain to left hip. Patient denies nausea vomiting diarrhea. Patient denies any urinary burning or frequency On 06/23/2019 patient was seen and examined in the intensive care unit she is alert and oriented 3 in no apparent distress she underwent surgery on the left hip yesterday and is doing well postoperatively she is complaining of pain in the left lower extremity otherwise she denies any complaints there is no fever or chills no headache or dizziness no chest pain no shortness of breath no cough no nausea or vomiting no abdominal pain no diarrhea no burning with urination no frequency or urgency and no hematuria. On 06/24/2019 patient was seen and examined on the medical floor she is alert and oriented 3 in no apparent distress, she is still complaining of pain in her left lower extremity otherwise she denies any complaints there is no fever or chills no headache or dizziness no chest pain no shortness of breath no cough no nausea or vomiting no abdominal pain no diarrhea no burning with urination no frequency or urgency and no hematuria 06/25/2019 patient is alert and oriented 3. Patient to work with physical therapy. Patient feels much improved. Patient denies chest pain or shortness of breath. Patient denies nausea vomiting or diarrhea. Patient denies any urinary burning or frequency. Objective - Vital Signs Vital signs: Vital Signs Temp 98 F 06/25/19 07:00 Pulse 70 06/25/19 09:19 Resp 18 06/25/19 08:00 BP 119/74 06/25/19 07:00 Pulse Ox 96 06/25/19 09:07 Intake & Output 06/24/19 06/25/1919 18:59 06:59 18:59 Intake Total 470 240 Output Total 750 800 Balance -750 -330 240 Intake: IV 70 Sodium Chloride 0.9% 1, 70 000 ml @ 20 mls/hr IV . Q24H [facility] Rx#:[id number] Intake, IV Titration 160 Amount Sodium Chloride 0.9% 1, 160 000 ml @ 20 mls/hr IV . Q24H [facility] Rx#:[id number] Oral 240 240 Output: Urine 750 800 Other: Voiding Method Indwelling Catheter Indwelling Catheter - Exam Head normocephalic Neck supple Lungs diminished bilaterally Heart regular rate and rhythm S1-S2, no rub or gallop Abdomen is soft nontender nondistended positive bowel sounds no hepatosplenomegaly Extremities no edema. Left hip tenderness to palpation Neuro alert and orientated to 3 - Labs CBC & Chem 7: 06/24/19 04:29 06/24/19 04:29 Labs: Abnormal Lab Results - Last 24 Hours (Table) 06/25/19 Range/Units 07:03 PT 15.4 H (9.0-12.0) sec INR 1.5 H (<1.2) Microbiology - Last 24 Hours (Table) 06/20/19 11:57 Blood Culture - Preliminary Blood No Growth after 96 hours 06/20/19 11:42 Blood Culture - Preliminary Blood No Growth after 96 hours Assessment and Plan Assessment: 1. Fall with left femur neck fracture. hip x-ray completed showing left femur neck fracture. Patient has been admitted to orthopedic service and plans for left hip hemiarthroplasty for left normal neck fracture per orthopedic services. Status post left hip hemiarthroplasty patient is currently postop day 3. 2. History of mechanical valve maintained on Coumadin. Coumadin on hold. Patient was ago by cardiology services 2-D echo reviewed recommend bridging with anticoagulation of Lovenox prior to surgery and thereafter. Per cardiology Lovenox should be continued until 8 hours prior to surgery and continued thereafter for 3 days along with daily Coumadin dosing to start RIVER after surgery. Per cardiology Coumadin has been resumed. Cardiology will not bridged with Lovenox at this time because of increased risk of bleeding as well as the fact that she had an aortic prosthetic valve of the [employer] type. INR currently 1.5 Coumadin dosing per cardiology 3. Left lower lobe pneumonia. Chest x-ray completed showing correlation for left lower lobe atelectasis or pneumonia and associated effusion. Ascending aortic aneurysm underlying emphysema. Pulmonary services have been consulted. Discussed case with pulmonary nurse practitioner. Pulmonary services would like to hold off on surgery for 2 days for patient to receive antibiotics. Rocephin and azithromycin ordered. Sputum and blood culture ordered. Repeat chest x-ray showing complete presedation of the left lung. Patient underwent bronchoscopy with BAL on June 21. 4. Urinary tract infection present on admission. Patient started on Rocephin. urine culture early growing E. coli and Klebsiella pneumonia 5. Left pleural effusion. Chest x-ray showing probable development of sizable left pleural effusion and atelectasis may be underlying pneumonia. Fluids DC'd. Patient given Lasix 60 mg once per cardiology. pulmonary service is aware 6. History of GERD 7. History of coronary artery disease 8. History of nicotine dependence currently half a pack a day smoker. Nicotine patch has been ordered patient educated greater than 3 minutes on smoking cessation 9. History of CVA 10. Peripheral vascular disease status post bilateral carotid artery endarterectomy. Carotid Doppler completed showing hemodynamic significant stenosis of the proximal right internal carotid arteries bilaterally by Doppler criteria an indirect measurement of the carotid stenosis corresponding to approximately 50-69% diameter reduction right greater than left. 11. Hypokalemia. replace per protocol. potassium 3.3. Resolved DVT prophylaxisl Coumadin resumed. GI prophylaxis Protonix Dr. Alanis consulted for possible inpatient rehab. PT OT consulted I performed an examination of the patient and discussed their management with the Nurse Practitioner. I have reviewed the Nurse Practitioner's notes and agree with the documented findings and plan of care
--- NOTE | 2019-06-25 11:29 | P.PN ---
Subjective HISTORY OF PRESENTING ILLNESS This is a pleasant 63-year-old female past medical history significant for valvular heart disease status post mechanical aortic valve replacement approximately 15 years ago, CVA, peripheral vascular disease status post bilateral carotid endarterectomy, dyslipidemia and chronic nicotine dependence. She presented with fall. She follows in the office with a entry level marketing representative out of [place], name unknown. She underwent left hip hemiarthroplasty TuesdayJune 22. She is seen and examined sitting up resting comfortably in bed on the surgical unit in no acute distress. She denies chest pain, shortness of breath, dizziness or palpitations. Refer data reviewed, INR 1.5. Currently maintained on amlodipine 5 mg daily, atorvastatin 40 mg daily, metoprolol 25 mg twice a day and Coumadin. Blood pressure 119/74 heart rate 70 afebrile maintaining oxygen saturation on nasal cannula. She is currently being evaluated for inpatient rehab. PHYSICAL EXAMINATION CONSTITUTIONAL: No apparent distress. HEENT: Head is normocephalic. Pupils are equal, round. Sclerae anicteric. Mucous membranes of the mouth are moist. No JVD. Bilateral carotid bruit. CHEST EXAMINATION: Lungs are clear to auscultation. No chest wall tenderness is noted on palpation or with deep breathing. Diminished bilaterally, difficult to assess due to hip fracture and pt laying flat. HEART EXAMINATION: Regular rate and rhythm. S1, S2 heard. Mechanical click at the base with systolic ejection murmur, no gallops or rub. EXTREMITIES: 1+ peripheral pulses, no lower extremity edema and no calf tenderness. ASSESSMENT Left femoral neck fracture status post fall, POD #3 Hypertension Valvular heart disease status post mechanical aortic valve replacement on long- term anticoagulation with Coumadin Left pleural effusion s/p bronchoscopy Peripheral vascular disease status post bilateral carotid endarterectomy Dyslipidemia Leukocytosis History of CVA in the past Chronic nicotine dependence PLAN Give coumadin 7.5 mg today, repeat INR in the morning. Nurse Practitioner note has been reviewed, I agree with a documented findings and plan of care. Patient was seen and examined. Objective - Vital Signs Vital signs: Vital Signs Temp 98 F 06/25/19 07:00 Pulse 70 06/25/19 09:19 Resp 18 06/25/19 08:00 BP 119/74 06/25/19 07:00 Pulse Ox 96 06/25/19 09:07 Intake & Output 06/24/19 06/25/19 06/25/19 18:59 06:59 18:59 Intake Total 470 240 Output Total 750 800 Balance -750 -330 240 Intake: IV 70 Sodium Chloride 0.9% 1, 70 000 ml @ 20 mls/hr IV . Q24H [facility] Rx#:[id number] Intake, IV Titration 160 Amount Sodium Chloride 0.9% 1, 160 000 ml @ 20 mls/hr IV . Q24H [facility] Rx#:[id number] Oral 240 240 Output: Urine 750 800 Other: Voiding Method Indwelling Catheter Indwelling Catheter - Labs CBC & Chem 7: 06/24/19 04:29 06/24/19 04:29 Labs: Abnormal Lab Results - Last 24 Hours (Table) 06/25/19 Range/Units 07:03 PT 15.4 H (9.0-12.0) sec INR 1.5 H (<1.2) Microbiology - Last 24 Hours (Table) 06/20/19 11:57 Blood Culture - Preliminary Blood No Growth after 96 hours 06/20/19 11:42 Blood Culture - Preliminary Blood No Growth after 96 hours
[2019-06-25] MEDS: HYDROcodone/APAP 5-325MG 1 EACH TAB PO PRN (11:32)
[2019-06-25] MEDS ORDERED: HYDROcodone/APAP 7.5-325MG 1 EACH TAB PO PRN (12:42)
[2019-06-25] MEDS: SODIUM CHLORIDE 0.9% 1,000 ML IV SCH (13:24)
--- NOTE | 2019-06-25 13:56 | P.PN ---
Subjective Progress Note Date: 06/25/19 Principal diagnosis: Left hip fracture Patient is seen at bedside this morning. She is postop day #3 from left hip hemiarthroplasty. She has pain at the surgical site as expected but denies any new complaints. She denies numbness, tingling or calf pain. Review of systems is negative for fever, chills, chest pain, shortness of breath or other Objective - Vital Signs Vital signs: Vital Signs Temp 98 F 06/25/19 07:00 Pulse 72 06/25/19 12:52 Resp 18 06/25/19 08:00 BP 119/74 06/25/19 07:00 Pulse Ox 96 06/25/19 09:07 Intake & Output 06/24/19 06/25/19 06/25/19 18:59 06:59 18:59 Intake Total 470 480 Output Total 750 800 Balance -750 -330 480 Intake: IV 70 Sodium Chloride 0.9% 1, 70 000 ml @ 20 mls/hr IV . Q24H [facility] Rx#:[id number] Intake, IV Titration 160 Amount Sodium Chloride 0.9% 1, 160 000 ml @ 20 mls/hr IV . Q24H [facility] Rx#:[id number] Oral 240 480 Output: Urine 750 800 Other: Voiding Method Indwelling Catheter Indwelling Catheter # Voids 3 - Exam Inspection reveals a benign surgical wound. There is no active bleeding or drainage. Neurovascular status is intact throughout the lower extremity with motor and sensation fully intact. Calf is soft and nontender. 2+ dorsalis pedis pulse and less than 2 second cap refill is present. - Constitutional General appearance: Present: no acute distress - Labs CBC & Chem 7: 06/24/19 04:29 06/24/19 04:29 Labs: Abnormal Lab Results - Last 24 Hours (Table) 06/25/19 Range/Units 07:03 PT 15.4 H (9.0-12.0) sec INR 1.5 H (<1.2) Microbiology - Last 24 Hours (Table) 06/20/19 11:57 Blood Culture - Preliminary Blood No Growth after 96 hours 06/20/19 11:42 Blood Culture - Preliminary Blood No Growth after 96 hours Assessment and Plan (1) Fracture of femoral neck, left Narrative/Plan: She will continue with routine postop orthopedic protocol including pain management, wound care, PT, DVT prophylaxis and medical management. Would recommend transfer to ECF when ok with IM Current Visit: Yes Status: Acute Priority: Medium Code(s): S72.002A - FRACTURE OF UNSP PART OF NECK OF LEFT FEMUR, INIT SNOMED Code(s): 7155856 Time with Patient: Less than 30
--- NOTE | 2019-06-25 15:43 | P.PN ---
Subjective Progress Note Date: 06/25/19 Principal diagnosis: Left femur fracture On 06/25/2019 patient seen in follow-up on medical surgical floor. She is awake and alert, in no acute distress, she is resting in bed, FiO2 down to 2 L, patient is satting 96%, she is afebrile, hemodynamically stable, denies any shortness of breath, denies any pain. Lung sounds are clear, diminished at the bases, no significant cough or congestion. She is working with physical therapy, tolerating activity well, no nausea vomiting or diarrhea, patient is being treated for urinary tract infection, urine cultures were positive for E. coli and Klebsiella pneumonia, and both were susceptible to ceftriaxone. Patient is status post bronchoscopy with bronchoalveolar lavage on 06/21/2019, and bronchial lavage cultures remain negative thus far, cytology revealed no cytologically malignant cells. No fever or chills, patient has been working with incentive spirometer when encouragement. Left hip incisions clean dry and intact covered with surgical dressing. There is no numbness, tingling pain. Objective - Vital Signs Vital signs: Vital Signs Temp 98 F 06/25/19 15:00 Pulse 83 06/25/19 15:00 Resp 16 06/25/19 15:00 BP 91/60 06/25/19 15:00 Pulse Ox 96 06/25/19 15:00 Intake & Output 06/24/19 06/25/19 06/25/19 18:59 06:59 18:59 Intake Total 470 480 Output Total 750 800 Balance -750 -330 480 Intake: IV 70 Sodium Chloride 0.9% 1, 70 000 ml @ 20 mls/hr IV . Q24H [facility] Rx#:[id number] Intake, IV Titration 160 Amount Sodium Chloride 0.9% 1, 160 000 ml @ 20 mls/hr IV . Q24H [facility] Rx#:[id number] Oral 240 480 Output: Urine 750 800 Other: Voiding Method Indwelling Catheter Indwelling Catheter # Voids 3 - Exam GENERAL EXAM: Alert, very pleasant, 63-year-old, comfortable in no apparent distress. HEAD: Normocephalic/atraumatic. EYES: Normal reaction of pupils, equal size. Conjunctiva pink, sclera white. NOSE: Clear with pink turbinates. THROAT: No erythema or exudates. NECK: No masses, no JVD, no thyroid enlargement, no adenopathy. CHEST: No chest wall deformity. Symmetrical expansion. LUNGS: Equal air entry with no crackles, wheeze, rhonchi or dullness. CVS: Regular rate and rhythm, normal S1 and S2, no gallops, no murmurs, no rubs ABDOMEN: Soft, nontender. No hepatosplenomegaly, normal bowel sounds, no guarding or rigidity. EXTREMITIES: No clubbing, no edema, no cyanosis, 2+ pulses and upper and lower extremities. MUSCULOSKELETAL: Muscle strength and tone normal. Left hip incision is clean dry and intact, covered with a surgical dressing, no numbness or tingling or calf pain SPINE: No scoliosis or deformity SKIN: No rashes CENTRAL NERVOUS SYSTEM: Alert and oriented -3. No focal deficits, tone is normal in all 4 extremities. PSYCHIATRIC: Alert and oriented -3. Appropriate affect. Intact judgment and insight. - Labs CBC & Chem 7: 06/24/19 04:29 06/24/19 04:29 Labs: Abnormal Lab Results - Last 24 Hours (Table) 06/25/19 Range/Units 07:03 PT 15.4 H (9.0-12.0) sec INR 1.5 H (<1.2) Microbiology - Last 24 Hours (Table) 06/20/19 11:42 Blood Culture - Preliminary Blood No Growth after 120 hours 06/20/19 11:57 Blood Culture - Preliminary Blood No Growth after 120 hours Assessment and Plan Plan: Assessment: #1 Recent fall with left femur fracture status post left hemiarthroplasty, postoperative day #3. #2 Urinary tract infection secondary to E. coli and Klebsiella pneumoniae. #3 Left lower lobe pneumonia with complete opacification of the left lung secondary to mucous plugging, status post bronchoscopy with BAL on 06/21/2019. Cytology negative. Cultures show no growth thus far. #4 Hyperlipidemia. #5 Chronic tobacco dependence. #6 Mild intermittent asthma. #7 Coronary artery disease. #8 Cerebral vascular accident. #9 Hypertension. #10 Gastroesophageal reflux disease. #11 Reveals aortic valve replacement. Plan: Continue encouraging deep breathing and coughing, maintain aspiration precautions, hemodynamically patient is stable, breathing is stable, no acute events overnight, no fever or chills, she continues on antibiotics for urinary tract infection, bronchial lavage cultures have shown no growth so far, cytology is negative, encouraged the patient to sit up in the chair, and physical therapy has been working with the patient, anticipate discharge to subacute rehab possibly in the next 24-48 hours I performed a history & physical examination of the patient and discussed their management with my nurse practitioner, Ca Parker. I reviewed the nurse practitioner's note and agree with the documented findings and plan of care. Lung sounds are positive for diminished breath sounds at the bases. The findings and the impression was discussed with the patient. I attest to the documentation by the nurse practitioner. Time with Patient: Less than 30
[2019-06-25 15:57] VITALS: BMI 23.2
[2019-06-25] MEDS: HYDROcodone/APAP 7.5-325MG 1 EACH TAB PO PRN (17:37)
[2019-06-25] MEDS ORDERED: WARFARIN 7.5 MG TAB PO ONE (18:00)
[2019-06-25] MEDS: SENNOSIDES-DOCUSATE SODIUM 1 EACH TAB PO SCH (20:07)
[2019-06-26] MEDS: PANTOPRAZOLE 40 MG TABLET PO SCH (07:43)
[2019-06-26] MEDS: ATORVASTATIN 40 MG TAB PO SCH (07:43)
[2019-06-26] MEDS: METOPROLOL TARTRATE 25 MG TAB PO SCH (07:43)
[2019-06-26] MEDS: AZITHROMYCIN 500 MG TAB PO SCH (07:43)
[2019-06-26] MEDS: amLODIPine 5 MG TAB PO SCH (07:43)
[2019-06-26] MEDS: NICOTINE 14MG/24HR PATCH TRANSDERM SCH (07:44)
[2019-06-26 07:57] LABS: Basophils # (A) 0.1 k/uL (0-0.2); Basophils % (A) 1 %; Eosinophils # (A) 0.1 k/uL (0-0.7); Eosinophils % (A) 1 %; HCT 29.5 % (34.0-46.0); HGB 9.6 gm/dL (11.4-16.0); Lymphocytes # (A) 1.3 k/uL (1.0-4.8); Lymphocytes % (A) 16 %; MCH 28.5 pg (25.0-35.0); MCHC 32.6 g/dL (31.0-37.0); MCV 87.5 fL (80.0-100.0); Mean Platelet Volume 9.1; Monocytes # (A) 0.6 k/uL (0-1.0); Monocytes % (A) 7 %; Neutrophils # (A) 6.1 k/uL (1.3-7.7); Neutrophils % (A) 72 %; Platelet Count 369 k/uL (150-450); RBC 3.38 m/uL (3.80-5.40); RDW 15.2 % (11.5-15.5); WBC 8.4 k/uL (3.8-10.6)
[2019-06-26 08:04] LABS: INR 2.2 (<1.2); Prothrombin Time 21.6 sec (9.0-12.0)
[2019-06-26 08:09] LABS: ALT 44 U/L (9-52); AST 54 U/L (14-36); African American GFR (CKD) >90 (>60 ml/min/1.73 sqM); Albumin 2.6 g/dL (3.5-5.0); Alkaline Phosphatase 76 U/L (38-126); Anion Gap 8 mmol/L; Blood Urea Nitrogen 12 mg/dL (7-17); Calcium 8.4 mg/dL (8.4-10.2); Carbon Dioxide 27 mmol/L (22-30); Chloride 102 mmol/L (98-107); Glucose 103 mg/dL (74-99); Non-African American GFR(CKD) >90 (>60 ml/min/1.73 sqM); Potassium 3.6 mmol/L (3.5-5.1); Sodium 137 mmol/L (137-145); Total Bilirubin 0.5 mg/dL (0.2-1.3); Total Protein 5.3 g/dL (6.3-8.2)
[2019-06-26] MEDS: IPRATROPIUM-ALBUTEROL 3 ML NEB INHALATION SCH ×2 (09:26→12:11)
[2019-06-26] MEDS: HYDROmorphone 1 MG/ML 1 ML SYRINGE IVP PRN (09:26)
[2019-06-26] MEDS: SYMBICORT 160-4.5 MCG INHALER INHALATION SCH (09:27)
--- NOTE | 2019-06-26 10:26 | P.PN ---
Subjective Progress Note Date: 06/26/19 Principal diagnosis: Left hip fracture Patient is seen at bedside this morning. She is postop day #4 from left hip hemiarthroplasty. She has controlled pain at the surgical site as expected but denies any new complaints. She denies numbness, tingling or calf pain. Review of systems is negative for fever, chills, chest pain, shortness of breath or other Objective - Vital Signs Vital signs: Vital Signs Temp 98.2 F 06/26/19 07:00 Pulse 74 06/26/19 09:38 Resp 16 06/26/19 07:00 BP 110/66 06/26/19 07:00 Pulse Ox 100 06/26/19 09:29 Intake & Output 06/25/19 06/26/19 06/26/19 18:59 06:59 18:59 Intake Total 480 Balance 480 Weight 69.4 kg Intake: Oral 480 Other: Voiding Method Bedpan # Voids 3 - Exam Inspection reveals a benign surgical wound. There is no active bleeding or drainage. Neurovascular status is intact throughout the lower extremity with motor and sensation fully intact. Calf is soft and nontender. 2+ dorsalis pedis pulse and less than 2 second cap refill is present. - Constitutional General appearance: Present: no acute distress - Labs CBC & Chem 7: 06/26/19 07:23 06/26/19 07:23 Labs: Abnormal Lab Results - Last 24 Hours (Table) 06/26/19 06/26/19 06/26/19 Range/Units 07:23 07:23 07:23 RBC 3.38 L (3.80-5.40) m/uL Hgb 9.6 L (11.4-16.0) gm/dL Hct 29.5 L (34.0-46.0) % PT 21.6 H (9.0-12.0) sec INR 2.2 H (<1.2) Creatinine 0.43 L (0.52-1.04) mg/dL Glucose 103 H (74-99) mg/dL AST 54 H (14-36) U/L Total Protein 5.3 L (6.3-8.2) g/dL Albumin 2.6 L (3.5-5.0) g/dL Microbiology - Last 24 Hours (Table) 06/20/19 11:42 Blood Culture - Preliminary Blood No Growth after 120 hours 06/20/19 11:57 Blood Culture - Preliminary Blood No Growth after 120 hours Assessment and Plan (1) Fracture of femoral neck, left Narrative/Plan: She will continue with routine postop orthopedic protocol including pain management, wound care, PT, DVT prophylaxis and medical management. Would recommend transfer to ECF when ok with IM Current Visit: Yes Status: Acute Priority: Medium Code(s): S72.002A - FRACTURE OF UNSP PART OF NECK OF LEFT FEMUR, INIT SNOMED Code(s): 1023577 Time with Patient: Less than 30
--- NOTE | 2019-06-26 10:44 | P.PN ---
Subjective HISTORY OF PRESENTING ILLNESS This is a pleasant 63-year-old female past medical history significant for valvular heart disease status post mechanical aortic valve replacement approximately 15 years ago, CVA, peripheral vascular disease status post bilateral carotid endarterectomy, dyslipidemia and chronic nicotine dependence. She presented with fall. She follows in the office with a superintendent transportation out of [place], name unknown. She underwent left hip hemiarthroplasty TuesdayJune 22. She is seen and examined sitting up resting comfortably in bed on the surgical unit in no acute distress. She denies chest pain, shortness of breath, dizziness or palpitations. INR today is 2.2. Hgb 9.6, plt 369, sodium 137, potassium 3.6, creatinine 0.43. Blood pressure 110/66 heart rate 74 afebrile and maintaining oxygen saturation on nasal cannula. Currently maintained on amlodipine 5 mg daily, atrovastatin 40 mg daily, lopressor 25 mg BID and coumadin. PHYSICAL EXAMINATION CONSTITUTIONAL: No apparent distress. HEENT: Head is normocephalic. Pupils are equal, round. Sclerae anicteric. Mucous membranes of the mouth are moist. No JVD. Bilateral carotid bruit. CHEST EXAMINATION: Lungs are clear to auscultation. No chest wall tenderness is noted on palpation or with deep breathing. Diminished bilaterally, difficult to assess due to hip fracture and pt laying flat. HEART EXAMINATION: Regular rate and rhythm. S1, S2 heard. Mechanical click at the base with systolic ejection murmur, no gallops or rub. EXTREMITIES: 1+ peripheral pulses, no lower extremity edema and no calf tenderness. ASSESSMENT Left femoral neck fracture status post fall, POD #4 Hypertension Valvular heart disease status post mechanical aortic valve replacement on long- term anticoagulation with Coumadin Left pleural effusion s/p bronchoscopy Peripheral vascular disease status post bilateral carotid endarterectomy Dyslipidemia Leukocytosis History of CVA in the past Chronic nicotine dependence PLAN Resume home dosing of coumadin. Target INR 2.5-3.5. Continue with coumadin dosing at Dr. Manuel's office upon discharge as previously established. Stable for discharge to sub-acute rehab from a cardiac perspective. Follow up with Dr. Saha in the office in 2-3 weeks. Nurse Practitioner note has been reviewed, I agree with a documented findings and plan of care. Patient was seen and examined. Objective - Vital Signs Vital signs: Vital Signs Temp 98.2 F 06/26/19 07:00 Pulse 74 06/26/19 09:38 Resp 16 06/26/19 07:00 BP 110/66 06/26/19 07:00 Pulse Ox 100 06/26/19 09:29 Intake & Output 06/25/19 06/26/19 06/26/19 18:59 06:59 18:59 Intake Total 480 Balance 480 Weight 69.4 kg Intake: Oral 480 Other: Voiding Method Bedpan # Voids 3 - Labs CBC & Chem 7: 06/26/19 07:23 06/26/19 07:23 Labs: Abnormal Lab Results - Last 24 Hours (Table) 06/26/19 06/26/19 06/26/19 Range/Units 07:23 07:23 07:23 RBC 3.38 L (3.80-5.40) m/uL Hgb 9.6 L (11.4-16.0) gm/dL Hct 29.5 L (34.0-46.0) % PT 21.6 H (9.0-12.0) sec INR 2.2 H (<1.2) Creatinine 0.43 L (0.52-1.04) mg/dL Glucose 103 H (74-99) mg/dL AST 54 H (14-36) U/L Total Protein 5.3 L (6.3-8.2) g/dL Albumin 2.6 L (3.5-5.0) g/dL Microbiology - Last 24 Hours (Table) 06/20/19 11:42 Blood Culture - Preliminary Blood No Growth after 120 hours 06/20/19 11:57 Blood Culture - Preliminary Blood No Growth after 120 hours
--- NOTE | 2019-06-26 12:00 | P.PN ---
Subjective Progress Note Date: 06/26/19 60-year-old female patient who is post left hip ORIF/hemiarthroplasty. She is looking well. She has no specific complaints. No respiratory difficulties. No cough sputum production chest that is so wheezing and she is tolerating her diet. She is known to have valvular heart disease and the patient has a mechanical aortic valve in place. She has also had previous history of CVA, previous peripheral vascular disease, previous carotid endarterectomy and hyperlipidemia. Objective - Vital Signs Vital signs: Vital Signs Temp 98.2 F 06/26/19 07:00 Pulse 74 06/26/19 09:38 Resp 16 06/26/19 07:00 BP 110/66 06/26/19 07:00 Pulse Ox 100 06/26/19 09:29 Intake & Output 06/25/19 06/26/19 06/26/19 18:59 06:59 18:59 Intake Total 480 Balance 480 Weight 69.4 kg Intake: Oral 480 Other: Voiding Method Bedpan # Voids 3 - Exam GENERAL EXAM: Alert, very pleasant, 63-year-old, comfortable in no apparent distress. HEAD: Normocephalic/atraumatic. EYES: Normal reaction of pupils, equal size. Conjunctiva pink, sclera white. NOSE: Clear with pink turbinates. THROAT: No erythema or exudates. NECK: No masses, no JVD, no thyroid enlargement, no adenopathy. CHEST: No chest wall deformity. Symmetrical expansion. LUNGS: Equal air entry with no crackles, wheeze, rhonchi or dullness. CVS: Regular rate and rhythm, normal S1 and S2, no gallops, no murmurs, no rubs ABDOMEN: Soft, nontender. No hepatosplenomegaly, normal bowel sounds, no guarding or rigidity. EXTREMITIES: No clubbing, no edema, no cyanosis, 2+ pulses and upper and lower extremities. MUSCULOSKELETAL: Muscle strength and tone normal. Left hip incision is clean dry and intact, covered with a surgical dressing, no numbness or tingling or calf pain SPINE: No scoliosis or deformity SKIN: No rashes CENTRAL NERVOUS SYSTEM: Alert and oriented -3. No focal deficits, tone is normal in all 4 extremities. PSYCHIATRIC: Alert and oriented -3. Appropriate affect. Intact judgment and insight. - Labs CBC & Chem 7: 06/26/19 07:23 06/26/19 07:23 Labs: Abnormal Lab Results - Last 24 Hours (Table) 06/26/19 06/26/19 06/26/19 Range/Units 07:23 07:23 07:23 RBC 3.38 L (3.80-5.40) m/uL Hgb 9.6 L (11.4-16.0) gm/dL Hct 29.5 L (34.0-46.0) % PT 21.6 H (9.0-12.0) sec INR 2.2 H (<1.2) Creatinine 0.43 L (0.52-1.04) mg/dL Glucose 103 H (74-99) mg/dL AST 54 H (14-36) U/L Total Protein 5.3 L (6.3-8.2) g/dL Albumin 2.6 L (3.5-5.0) g/dL Microbiology - Last 24 Hours (Table) 06/20/19 11:42 Blood Culture - Preliminary Blood No Growth after 120 hours 06/20/19 11:57 Blood Culture - Preliminary Blood No Growth after 120 hours Assessment and Plan Plan: #1 Recent fall with left femur fracture status post left hemiarthroplasty, postoperative day #4 #2 Urinary tract infection secondary to E. coli and Klebsiella pneumoniae. #3 Left lower lobe pneumonia with complete opacification of the left lung secondary to mucous plugging, status post bronchoscopy with BAL on 06/21/2019. Cytology negative. Cultures show no growth thus far. #4 Hyperlipidemia. #5 Chronic tobacco dependence. #6 Mild intermittent asthma. #7 Coronary artery disease. #8 Cerebral vascular accident. #9 Hypertension. #10 Gastroesophageal reflux disease. #11 Reveals aortic valve replacement. Plan Condition is stable. No active pulmonary or critical care issue. Continue antibiotic treatment and discharge planning is in progress. Pulmonary particularly care services we'll sign off.
[2019-06-26] MEDS: SODIUM CHLORIDE 0.9% 1,000 ML IV SCH (12:19)
[2019-06-26] MEDS: MULTIVITAMINS, THERA 1 EACH TAB PO SCH (13:25)
--- NOTE | 2019-06-26 13:25 | P.DS ---
Providers Date of admission: 06/18/19 20:02 Expected date of discharge: 06/26/19 Attending physician: Gemini Manuel Consults: 06/18/19 20:06 Consult Physician Stat Consulting Provider: Art Toribio Consult Reason/Comments: left femur neck fracture Do you want consulting provider notified?: Yes 06/19/19 09:56 Consult Physician Urgent Consulting Provider: Gemini Manuel Consult Reason/Comments: pre op clearance, loly-operative medical management Do you want consulting provider notified?: Yes 06/19/19 10:16 Consult Physician Urgent Consulting Provider: Elieser Webb Consult Reason/Comments: cardiac clearance, artifical valve- coumadin Do you want consulting provider notified?: Yes 06/20/19 09:45 Consult Physician Routine Consulting Provider: Mil Kimble Consult Reason/Comments: Left lower lobe atelectasis versus pneumonia and associated effusion Do you want consulting provider notified?: Yes 06/24/19 13:00 Consult Physician Routine Consulting Provider: Dickson Alanis Consult Reason/Comments: Possible rehab admission Do you want consulting provider notified?: Yes Primary care physician: Gemini Manuel Hospital Course: Discharge diagnosis 1. Fall with left femur neck fracture. hip x-ray completed showing left femur neck fracture. Patient has been admitted to orthopedic service and plans for left hip hemiarthroplasty for left normal neck fracture per orthopedic services. Status post left hip hemiarthroplasty patient is currently postop day 4. She has been cleared for discharge from orthopedic standpoint. Patient will be discharged to inpatient rehab at the [facility] 2. History of mechanical valve maintained on Coumadin. Coumadin on hold. Patient was ago by cardiology services 2-D echo reviewed recommend bridging with anticoagulation of Lovenox prior to surgery and thereafter. Per cardiology Lovenox should be continued until 8 hours prior to surgery and continued thereafter for 3 days along with daily Coumadin dosing to start RIVER after surgery. Per cardiology Coumadin has been resumed. Cardiology will not bridged with Lovenox at this time because of increased risk of bleeding as well as the fact that she had an aortic prosthetic valve of the [employer] type. INR currently 1.5 Coumadin dosing per cardiology. Per cardiology patient to resume home Coumadin dose target of INR 2.5-3.5. 3. Left lower lobe pneumonia. Chest x-ray completed showing correlation for left lower lobe atelectasis or pneumonia and associated effusion. Ascending aortic aneurysm underlying emphysema. Pulmonary services have been consulted. Discussed case with pulmonary nurse practitioner. Pulmonary services would like to hold off on surgery for 2 days for patient to receive antibiotics. Rocephin and azithromycin ordered. Sputum and blood culture ordered. Repeat chest x-ray showing complete presedation of the left lung. Patient underwent bronchoscopy with BAL on June 21. Pulmonary services have signed off 4. Urinary tract infection present on admission. Patient started on Rocephin. urine culture early growing E. coli and Klebsiella pneumonia 5. Left pleural effusion. Chest x-ray showing probable development of sizable left pleural effusion and atelectasis may be underlying pneumonia. Fluids DC'd. Patient given Lasix 60 mg once per cardiology. pulmonary service is aware 6. History of GERD 7. History of coronary artery disease 8. History of nicotine dependence currently half a pack a day smoker. Nicotine patch has been ordered patient educated greater than 3 minutes on smoking cessation 9. History of CVA 10. Peripheral vascular disease status post bilateral carotid artery endarterectomy. Carotid Doppler completed showing hemodynamic significant stenosis of the proximal right internal carotid arteries bilaterally by Doppler criteria an indirect measurement of the carotid stenosis corresponding to approximately 50-69% diameter reduction right greater than left. 11. Hypokalemia. replace per protocol. potassium 3.3. Resolved Hospital course This is a 63-year-old female patient who presented to the ER after sustaining a fall. Patient reports that she was moving around furniture when she slipped out of bed and fell onto the left side of her body. Patient denies any loss of consciousness prior to episode. Patient denies any other injuries to head or neck. X-ray of pelvis and femur completed showing left femoral neck fracture. Pelvis x-ray completed showing left femoral neck fracture. CT of head and spine completed showing age-related atrophic and chronic small vessel ischemic changes without acute intracranial process seen at this time. No evidence for acute fracture or subluxation of the cervical spine. Patient does have a past medical history of asthma, coronary artery disease, CVA, GERD, nicotine dependence and heart valve replacement in which she is managed on Coumadin. Patient reports that she follows with her mixer helper regularly but unable to recall when her last 2-D echo or stress test was. Patient reports that her valve replacement was possibly 10 years ago. INR on admission 1.4. Coumadin currently on hold. Due to patient's cardiac history will consult cardiology services for cardiac clearance prior to surgery. 2-D echo has been ordered. Patient having some discomfort to left hip area. Patient denies chest pain or shortness of breath. Patient denies nausea vomiting or diarrhea. Patient denies any urinary burning or frequency. Patient denies any recent illness. Patient denies any significant history of blood clots to legs or lungs. Patient denies history of irregular heart rhythm. On 06/20/2019 patient is alert and oriented 3. Patient had chest x-ray completed yesterday showing correlation for left lower lobe atelectasis first pneumonia and associated effusion. Ascending aortic aneurysm underlying emphysema. Patient also having elevated white count this a.m. 13.3. Pulmonary services have been consulted. Discussed case with cardiology [employer]SEL[employer]. Per pulmonary will hold off on surgery for 2 days so patient can receive antibiotics for pneumonia and possible UTI. Patient was thoroughly evaluated by cardiology service is currently on Lovenox bridging tissue bioprosthetic valve. At this time patient denies chest pain or shortness of breath. Patient denies nausea vomiting or diarrhea. Patient denies any urinary burning or frequency On 06/21/2019 patient is alert and oriented 3. Repeat chest x-ray this morning showing probable development of sizable left pleural effusion and atelectasis as there may be underlying pneumonia. Chest ultrasound ordered. Lasix ordered per cardiology. Patient remains on Rocephin and azithromycin. Patient remains on Lovenox for bioprosthetic valve. Patient requiring more oxygen per nursing staff this was discussed with pulmonary services. Blood sputum cultures ordered. Patient denies chest pain. Patient reports some shortness of breath. Patient denies nausea vomiting or diarrhea. Patient denies any urinary burning or frequency On 06/22/2019 patient is alert and oriented 3. Patient was transferred to the intensive care unit yesterday for bronchoscopy per pulmonary. Post chest x-ray shows improved. Oxygen demand have been decreased. Per pulmonary services patient may proceed with surgery of left hip repair today. At this time patient is resting comfortably in bed. Patient study some increased pain to left hip. Patient denies nausea vomiting diarrhea. Patient denies any urinary burning or frequency On 06/23/2019 patient was seen and examined in the intensive care unit she is alert and oriented 3 in no apparent distress she underwent surgery on the left hip yesterday and is doing well postoperatively she is complaining of pain in the left lower extremity otherwise she denies any complaints there is no fever or chills no headache or dizziness no chest pain no shortness of breath no cough no nausea or vomiting no abdominal pain no diarrhea no burning with urination no frequency or urgency and no hematuria. On 06/24/2019 patient was seen and examined on the medical floor she is alert and oriented 3 in no apparent distress, she is still complaining of pain in her left lower extremity otherwise she denies any complaints there is no fever or chills no headache or dizziness no chest pain no shortness of breath no cough no nausea or vomiting no abdominal pain no diarrhea no burning with urination no frequency or urgency and no hematuria 06/25/2019 patient is alert and oriented 3. Patient to work with physical therapy. Patient feels much improved. Patient denies chest pain or shortness of breath. Patient denies nausea vomiting or diarrhea. Patient denies any urinary burning or frequency. On 06/26/2019 patient's alert and oriented 3. Patient to be discharged to inpatient rehab at [facility]. Orthopedic, pulmonary and cardiology services have cleared patient for discharge. She will be DC'd on Ceftin for one week. [place] for pain control. Resume home Coumadin dose. At this time patient denies chest pain or shortness of breath. Patient denies nausea vomiting or diarrhea. Patient denies any urinary burning or frequency. I performed an examination of the patient and discussed their management with the Nurse Practitioner. I have reviewed the Nurse Practitioner's notes and agree with the documented findings and plan of care Daily CBC, CMP and PT/INR Patient Condition at Discharge: Stable Plan - Discharge Summary Discharge Rx Participant: No New Discharge Prescriptions: New Ipratropium-Albuterol Nebulize [Duoneb 0.5 mg-3 mg/3 ml Soln] 3 ml INHALATION RT-QID ampul.neb Nicotine 14Mg/24Hr Patch [Habitrol] 1 patch TRANSDERM DAILY patch Metoprolol Tartrate [Lopressor] 25 mg PO BID tab Multivitamins, Thera [Multivitamin (formulary)] 1 each PO DAILY@1200 tab amLODIPine [Norvasc] 5 mg PO DAILY tab Sennosides-Docusate Sodium [Senokot-S] 2 each PO HS tab Budesonide-Formot 160-4.5 Mcg [Symbicort 160-4.5 Mcg Inhaler] 2 puff INHALATION RT-BID puff Ferrous Sulfate [Feosol] 325 mg PO BID 30 Days #60 tab Cefuroxime Axetil [Ceftin] 500 mg PO BID 3 Days #14 tab HYDROcodone/APAP 7.5-325MG [[place] 7.5-325] 2 each PO Q6H PRN tab PRN Reason: Pain Scale 6 To 10 HYDROcodone/APAP 7.5-325MG [[place] 7.5-325] 1 each PO Q6H PRN tab PRN Reason: Pain Scale 1 To 5 Continue Zolpidem [Ambien] 5 mg PO HS PRN PRN Reason: Insomnia Simvastatin [Zocor] 40 mg PO HS Omeprazole 40 mg PO BID Warfarin [Coumadin] 7.5 mg PO FR Warfarin Sodium 5 mg PO SUMOTUWETHSA Discontinued HYDROcodone/APAP 5-325MG [[place] 5-325] 1 tab PO Q8H PRN PRN Reason: Pain Discharge Medication List Omeprazole 40 mg PO BID 12/17/15 [History] Simvastatin [Zocor] 40 mg PO HS 12/17/15 [History] Zolpidem [Ambien] 5 mg PO HS PRN 12/17/15 [History] Warfarin Sodium 5 mg PO SUMOTUWETHSA 06/18/19 [History] Warfarin [Coumadin] 7.5 mg PO FR 06/18/19 [History] Budesonide-Formot 160-4.5 Mcg [Symbicort 160-4.5 Mcg Inhaler] 2 puff INHALATION RT-BID puff 06/26/19 [Rx] Cefuroxime Axetil [Ceftin] 500 mg PO BID 3 Days #14 tab 06/26/19 [Rx] Ferrous Sulfate [Feosol] 325 mg PO BID 30 Days #60 tab 06/26/19 [Rx] HYDROcodone/APAP 7.5-325MG [[place] 7.5-325] 1 each PO Q6H PRN tab 06/26/19 [Rx] HYDROcodone/APAP 7.5-325MG [[place] 7.5-325] 2 each PO Q6H PRN tab 06/26/19 [Rx] Ipratropium-Albuterol Nebulize [Duoneb 0.5 mg-3 mg/3 ml Soln] 3 ml INHALATION RT-QID ampul.neb 06/26/19 [Rx] Metoprolol Tartrate [Lopressor] 25 mg PO BID tab 06/26/19 [Rx] Multivitamins, Thera [Multivitamin (formulary)] 1 each PO DAILY@1200 tab 06/26/19 [Rx] Nicotine 14Mg/24Hr Patch [Habitrol] 1 patch TRANSDERM DAILY patch 06/26/19 [Rx] Sennosides-Docusate Sodium [Senokot-S] 2 each PO HS tab 06/26/19 [Rx] amLODIPine [Norvasc] 5 mg PO DAILY tab 06/26/19 [Rx] Follow up Appointment(s)/Referral(s): Beverly Saha MD [STAFF PHYSICIAN] - 2 Weeks Gemini Manuel MD [Primary Care Provider] - 1-2 days Art Toribio MD [STAFF PHYSICIAN] - 10 Days Patient Instructions/Handouts: Fall Prevention (ED) Activity/Diet/Wound Care/Special Instructions: Patient will be admitted WBAT keep wound clean and dry F/U with Dr. Toribio in office take meds as directed patient will be admitted to inpatient rehab and [facility] Discharge Disposition: OTHER INSTITUTION NOT DEFINED
[2019-06-26] MEDS: HYDROcodone/APAP 7.5-325MG 1 EACH TAB PO PRN (15:03)
[2019-06-26 15:15] VITALS: BP 110/72; PULSE 89; RESP 17; TEMP 98.1
[2019-06-26] MEDS ORDERED: WARFARIN 5 MG TAB PO SCH (18:00)
[2019-06-29] MEDS ORDERED: WARFARIN 7.5 MG TAB PO SCH (18:00)
== END 2019-06-26 15:36 | DRG 469 ==
LOC: EC 17:11 → 4SSUR 20:02 → UNDOADMOB 20:02 → OBSVTOIN 20:02 → 2SICU 06-21 11:10 → 4SSUR 06-24 04:51
PROVIDERS: ADMIT Internal Medicine; ATTEND Internal Medicine
PROC: 0B9G8ZX Drainage of Left Upper Lung Lobe, Via Natural or Artificial Opening Endoscopic, Diagnostic (ICD-10-PCS; 2019-06-21 07:40)
PROC: 0SRS0JZ Replacement of Left Hip Joint, Femoral Surface with Synthetic Substitute, Open Approach (ICD-10-PCS; principal; 2019-06-22 08:30)
DX: S72.092A Other fracture of head and neck of left femur, initial encounter for closed fracture (principal); J18.9 Pneumonia, unspecified organism; N39.0 Urinary tract infection, site not specified; J90 Pleural effusion, not elsewhere classified; J98.11 Atelectasis; Z91.09 Other allergy status, other than to drugs and biological substances; E78.5 Hyperlipidemia, unspecified; E87.6 Hypokalemia; F17.210 Nicotine dependence, cigarettes, uncomplicated; I65.21 Occlusion and stenosis of right carotid artery; B96.20 Unspecified Escherichia coli [E. coli] as the cause of diseases classified elsewhere; I71.2 Thoracic aortic aneurysm, without rupture; J43.9 Emphysema, unspecified; J45.20 Mild intermittent asthma, uncomplicated; W06.XXXA Fall from bed, initial encounter; I10 Essential (primary) hypertension; I25.10 Atherosclerotic heart disease of native coronary artery without angina pectoris; Z53.9 Procedure and treatment not carried out, unspecified reason; I27.20 Pulmonary hypertension, unspecified; I73.9 Peripheral vascular disease, unspecified; K21.9 Gastro-esophageal reflux disease without esophagitis; Z82.3 Family history of stroke; Z79.899 Other long term (current) drug therapy; Z79.01 Long term (current) use of anticoagulants; Z82.49 Family history of ischemic heart disease and other diseases of the circulatory system; Z86.73 Personal history of transient ischemic attack (TIA), and cerebral infarction without residual deficits; Z95.2 Presence of prosthetic heart valve; Y92.003 Bedroom of unspecified non-institutional (private) residence as the place of occurrence of the external cause
CPT/HCPCS: 31624; 31645; 36415; 70450; 71045; 72125; 72170; 73501; 76604; 80048; 80053; 81001; 83735; 84132; 85025; 85027; 85610; 85730; 87040; 87070; 87077; 87086; 87102; 87116; 87186; 87205; 87206; 87252; 87496; 87498; 87502; 87529; 87634; 87798; 88108; 88305; 88311; 89050; 93005; 93306; 93880; 94640; 94760; 96374; 99285

== ENCOUNTER → 2020-07-04 | Outpatient (CLI) | payer MEDICARE, BC ==
--- NOTE | 2020-07-04 12:24 | MM ---
Reason for exam: additional evaluation requested from abnormal screening. Last mammogram was performed 2 months ago. History: Patient is postmenopausal. Family history of breast cancer in cousin at age 50. Physical Findings: Nurse did not find any significant physical abnormalities on exam. MG Work Up Mamm w CAD BILAT Bilateral CC with magnification view(s) were taken. ML with magnification, ML, and LM view(s) were taken of the right breast. LM with magnification view(s) were taken of the left breast. Prior study comparison: April 24, 2020, bilateral MG 3d screening mammo w/cad. The breast tissue is heterogeneously dense. This may lower the sensitivity of mammography. Finding: There are indeterminate grouped/clustered calcifications in the inner quadrant, middle position of the left breast. These results were verbally communicated with the patient and result sheet given to the patient on 07/04/20. ASSESSMENT: Suspicious, BI-RAD 4 RECOMMENDATION: Stereotactic core biopsy of the left breast. Called office with mammographic findings and has scheduled an appointment for the patient for 07/10/20 at 1:[address] Falcon. PRELIMINARY REPORT CALLED AND FAXED TO DR. FALCON ON 07/04/20.
== END | disposition home or self-care (01) ==
LOC: RADMAMWWP 10:25
PROVIDERS: ATTEND Internal Medicine
DX: R92.8 Other abnormal and inconclusive findings on diagnostic imaging of breast (principal)
CPT/HCPCS: 77066

== ENCOUNTER → 2020-07-10 | Outpatient (CLI) | payer MEDICARE, BC ==
[2020-07-10 13:17] VITALS: BP 149/84; PULSE 88; RESP 18; TEMP 98.2
--- NOTE | 2020-07-10 14:01 | P.GSHP ---
History of Present Illness H&P Date: 07/10/20 Chief Complaint: Abnormal mammogram Yamila is a 64 -year-old white female seen in consultation for Dr. Manuel for mammographic abnormality in the left breast. The patient had bilateral screening mammograms done on 920 [id number]. This revealed indeterminate calcifications in both breast and specimen pressure views of both [place]. [place] [address]. After the special views it was recommended that a stereo biopsy be performed in the inner quadrant middle position of the left breast. No recommendation was given for the right breast. The patient does not feel any lumps masses or nodules in her breast. She has never had any surgery on her breast or no trauma or infection in the breast. She is not complaining of any nipple discharge or skin changes. She is not complaining of any pain in her breast. Caffeine:7 cups coffee/day Nicotine: Half a pack per day for 51 years Theophylline: rare Family History: maternal cousin: breast cancer father: stomach cancer maternal grandmother: cancer ? source Hormonal history: Menarche: 14 , breast fed: no, age at first : 17 menopause: 48, partial hysterectomy, done for urinary incontinence hormones:none Surgical history: heart: valve surgery surgery for bleeding ulcers exploratory lap Medical History: CVA bleeding ulcers in the past HTN heart "pills" Social History: smoke: 1/2 PPD alcohol: none drugs: none - Constitutional Constitutional: Denies chills, Denies fever - EENT Eyes: denies blurred vision, denies pain Ears: deny: decreased hearing, tinnitus Ears, nose, mouth and throat: Denies headache, Denies sore throat - Breasts Breasts: bilateral: as per HPI - Cardiovascular Cardiovascular: Reports shortness of breath, Denies chest pain - Respiratory Comment: smoker Respiratory: Reports cough - Gastrointestinal Gastrointestinal: Denies abdominal pain, Denies diarrhea, Denies nausea, Denies vomiting - Genitourinary (Female) Genitourinary: Denies dysuria, Denies hematuria - Menstruation Menstruation: Reports post hysterectomy - Musculoskeletal Comment: arthritis - Integumentary Integumentary: Denies pruritus, Denies rash - Neurological Neurological: Denies numbness, Denies weakness - Psychiatric Psychiatric: Denies anxiety, Denies depression - Endocrine Endocrine: Denies fatigue, Denies weight change - Hematologic/Lymphatic Comment: takes Coumadin - Allergic/Immunologic Allergic/Immunologic: Reports as per HPI Past Medical History Past Medical History: Asthma, Coronary Artery Disease (CAD), CVA/TIA, GERD/Reflux Additional Past Medical History / Comment(s): back pain History of Any Multi-Drug Resistant Organisms: None Reported Additional Past Surgical History / Comment(s): carotid endarectomy, abdominal, heart valve Past Psychological History: No Psychological Hx Reported Smoking Status: Current every day smoker Past Alcohol Use History: None Reported Past Drug Use History: None Reported - Past Family History Mother History Unknown: Yes Medications and Allergies Home Medications Medication Instructions Recorded Confirmed Type Omeprazole 40 mg PO BID 12/17/15 07/10/20 History Simvastatin [Zocor] 40 mg PO HS 12/17/15 07/10/20 History Zolpidem [Ambien] 5 mg PO HS PRN 12/17/15 07/10/20 History Warfarin Sodium 5 mg PO SUMOTUWETHSA 06/18/19 07/10/20 History Warfarin [Coumadin] 7.5 mg PO FR 06/18/19 07/10/20 History Budesonide-Formot 160-4.5 Mcg 2 puff INHALATION RT-BID puff 06/26/19 07/10/20 Rx [Symbicort 160-4.5 Mcg Inhaler] HYDROcodone/APAP 7.5-325MG [[place] 1 each PO Q6H PRN tab 06/26/19 07/10/20 Rx 7.5-325] Ipratropium-Albuterol Nebulize 3 ml INHALATION RT-QID ampul.neb 06/26/19 07/10/20 Rx [Duoneb 0.5 mg-3 mg/3 ml Soln] Metoprolol Tartrate [Lopressor] 25 mg PO BID tab 06/26/19 07/10/20 Rx Multivitamins, Thera [Multivitamin 1 each PO DAILY@1200 tab 06/26/19 07/10/20 Rx (formulary)] Sennosides-Docusate Sodium 2 each PO HS tab 06/26/19 07/10/20 Rx [Senokot-S] amLODIPine [Norvasc] 5 mg PO DAILY tab 06/26/19 07/10/20 Rx Allergies Allergy/AdvReac Type Severity Reaction Status Date / Time mold Allergy Wheezing Verified 07/10/20 13:11 Surgical - Exam Vital Signs Temp Pulse Resp BP Pulse Ox 98.2 F 88 18 149/84 97 07/10/20 13:15 07/10/20 13:15 07/10/20 13:15 07/10/20 13:15 07/10/20 13:15 BMI 18.6 - General no distress - Eyes normal ocular movement - ENT normal pinna, no hearing loss - Neck no masses, trachea midline - Respiratory decreased breath sounds at bases normal expansion, normal respiratory effort, clear to percussion, clear to auscultation - Cardiovascular systolic ejection murmur Rhythm: regular Heart Sounds: normal: S1, S2 - Abdomen Abdomen: soft, bowel sounds - Integumentary normal turgor - Neurologic no disoriented, no combative - Musculoskeletal normal gait - Psychiatric oriented to time, oriented to person, oriented to place, speech is normal, memory intact breast exam: BRA 36B inspection: scar right breast, bilateral grade 2 ptosis palpation: Right breast: Healed scar from prior surgery multiple positional exam fibrocystic changes Right axilla: No adenopathy of concern Left breast: Multi-positional exam fibrocystic changes, no dominant masses or nodules of concern Left axilla: No adenopathy of concern Results mammogram results reviewed with Dr. Conde, no lesions of concern in the right breast, only one to warrent biopsy at this time in the left breast, if this is + will consider a MRI Assessment and Plan Assessment: Impression: CVA bleeding ulcers in the past HTN heart "pills" Abnormal bilateral mammogram/abnormal left breast mammogram resulting in recommendation for stereo biopsy Plan: 1. Stop Coumadin as per medicine 2. Left breast stereotactic core biopsy 3. Medical management of medical conditions 4, If stereo biopsy is positive for malignancy would consider bilateral breast MRI 5. PT and INR in the morning of procedure Risks and benefits of the procedure discussed with the patient. She understands and wishes to proceed. Alternatives such as watchful waiting or resection in the operating room were discussed but not recommended. Risks include but are not limited to bleeding, infection, reaction to the anesthetic. Again she understands and wishes to proceed. CC: Dr. Manuel encounter 35 minutes, > 50% of time on planning and counselling
== END | disposition home or self-care (01) ==
LOC: WWCWWP 12:54
PROVIDERS: ATTEND Surgery
DX: Z53.9 Procedure and treatment not carried out, unspecified reason (principal)

== ENCOUNTER → 2020-08-14 | Day surgery (SDC) | payer MEDICARE, BC ==
[2020-08-14 07:19] VITALS: RESP 16
--- NOTE | 2020-08-14 08:28 | P.PCN ---
Date of Procedure: 08/14/20 Preoperative Diagnosis: Microcalcifications of concern left breast inner medial area Postoperative Diagnosis: Same Procedure(s) Performed: Stereotactic core biopsy left breast Anesthesia: local Surgeon: Amanda Falcon Pathology: other (Breast tissue with microcalcifications of concern in specimen) Condition: stable Disposition: same day Indications for Procedure: Microcalcifications of concern left breast inner medial area Operative Findings: Microcalcifications of concern noted and biopsy specimen Description of Procedure: The patient is a 64-year-old white female who on mammogram was noted to have an area of microcalcifications of concern in the inner medial position of the left breast. Stereotactic core biopsy was recommended. Risks and benefits of the procedure as well as alternatives were discussed with the patient. She underst ood and wished to proceed with stereotactic core biopsy. The patient was brought to the stereotactic core biopsy room. She was positioned prone on the lo-rad table. A temporary administrative assistant film was obtained. A medial to lateral approach was utilized. The area of concern was identified. The lesion was targeted. The breast was prepped using Betadine. 20 mL of 1% lidocaine were used to anesthetize the area of concern. A 9-gauge vacuum-assisted core rotating biopsy needle was driven to the correct coordinates. The needle was fired and a post-fire film was obtained showing the needle in the correct locati on. Eight biopsy specimens were obtained. Radiograph of the specimens revealed the microcalcifications of concern had been adequately sampled. A secure sg top hat clip was left in place. This was noted to be in the correct location. The patient tolerated the procedure in stable condition. The specimen was sent to pathology. She will follow-up with Dr. Rosado in 1 week.
[2020-08-14 08:52] VITALS: BP 138/89; PULSE 93; TEMP 97.9
--- NOTE | 2020-08-14 09:54 | MM ---
EXAMINATION TYPE: MG stereo VAD BX LT DATE OF EXAM: 08/14/2020 COMPARISON: Prior mammogram July 04, 2020 and older mammograms CLINICAL HISTORY: Abnormal mammogram TECHNIQUE: Stereotactic guided core biopsy of left breast with clip placement and follow-up diagnosti c two-view mammogram.. FINDINGS: The procedure of stereotactic guided core biopsy was explained to the patient. Benefits, a lternatives, and risks were discussed. An informed consent was then obtained. The shortness pathway for biopsy was attempted. Group of calcifications are central in position. Medi al approach is chosen. I performed the localization, then surgeon, Dr. Alonzo Leal performed the remai nder of the procedure. A vacuum assisted biopsy gun was used to obtain multiple core samples. The patient tolerated the procedure well without any immediate complication. The patient was kept in the radiology department for short stay after the procedure and then discharged home in stable condi tion. Targeted calcifications are identified in specimen mammogram. Post biopsy mammogram shows the clip to appear in satisfactory position relative to the targeted area of concern on the preprocedure images. No suspicious residual calcifications. IMPRESSION: SUCCESSFUL, UNCOMPLICATED STEREOTACTIC GUIDED CORE BIOPSY OF AREA OF CONCERN IN THE LEFT BREAST, FULL PATHOLOGY RESULTS TO FOLLOW. Intermediate to high index of suspicion noted at time of procedure based on morphology of specimen ma mmogram.
== END ==
LOC: RADMAMWWP 07:04
PROVIDERS: ATTEND Surgery
DX: N60.32 Fibrosclerosis of left breast (principal)
CPT/HCPCS: 88305; 19081; A4648; J2001

== ENCOUNTER → 2020-08-21 | Outpatient (CLI) | payer MEDICARE, BC ==
[2020-08-21 10:09] VITALS: BP 185/93; PULSE 83; RESP 18; TEMP 98.2
--- NOTE | 2020-08-21 10:23 | P.PN ---
Subjective Progress Note Date: 08/21/20 Principal diagnosis: Fibrocystic breast changes Yamila is a 64-year-old white female status post her tactic core biopsy of the left breast on 08-14-20. The pathology was hypocellular stromal fibrosis with scattered microcalcification and fibrocystic change. No in situ or invasive cancer. The patient tolerated the procedure with no difficulty. Objective - Vital Signs Vital signs: Vital Signs Temp 98.2 F 08/21/20 10:06 Pulse 83 08/21/20 10:06 Resp 18 08/21/20 10:06 BP 185/93 08/21/20 10:06 Pulse Ox 97 08/21/20 10:06 Intake & Output 08/20/20 08/21/20 08/21/20 18:59 06:59 18:59 Weight 58.06 kg - Exam BMI 20 - Constitutional General appearance: Present: average body habitus - EENT Eyes: Present: EOMI ENT: Present: hearing grossly normal - Neck Neck: Present: normal ROM - Respiratory Respiratory: left: rales (at the base), bilateral: CTA - Cardiovascular Rhythm: regular Heart sounds: normal: S1, S2 Abnormal Heart Sounds: Present: systolic murmur - Integumentary Integumentary Comment(s): Mild ecchymosis at biopsy site left breast Integumentary: Present: normal turgor - Musculoskeletal Musculoskeletal: Present: gait normal - Psychiatric Psychiatric: Present: A&O x's 3, appropriate affect, intact judgment & insight Assessment and Plan Assessment: Impression/plan: 1. Left breast stereotactic core biopsy benign/mild ecchymosis at biopsy site 2. Repeat left breast mammogram in 6 months with physician exam at that time 3. Patient following today with primary care physician Dr. Manuel regarding pain medication for her back; she will follow with him regarding medical care
== END | disposition home or self-care (01) ==
LOC: WWCWWP 09:57
PROVIDERS: ATTEND Surgery
DX: Z53.9 Procedure and treatment not carried out, unspecified reason (principal)

== ENCOUNTER 2020-10-27 12:56 | Emergency (ER) | payer MEDICARE, BC ==
--- NOTE | 2020-10-27 14:51 | ED ---
General Adult HPI - General Source: patient, RN notes reviewed Mode of arrival: ambulatory Limitations: no limitations <Kartik Mitchell - Last Filed: 10/27/20 16:01> <Richard Núñez - Last Filed: 10/27/20 21:47> - General Chief complaint: GI Bleed Stated complaint: Sent by pcp - History of Present Illness Initial comments: Patient is a 64-year-old female that presents to emergency department complaining of hematemesis. She noted that she recently had her warfarin dose increased by her PCP. She noted that last night she was vomiting up blood, she did stop taking her warfarin last night and notes that she has not had no complications today and feels all right. Patient also complaining of some chest congestion, has family member that is Covid-positive. (Kartik Mitchell) Dictation was produced using [employer] dictation software. please excuse any grammatical, word or spelling errors. This patient was cared for during a federal and state declared state of emergency secondary to Covid 19 Chief Complaint: 64-year-old female with past medical history of peptic ulcer disease presents to the emergency department for episode of bright or bloody emesis. Patient takes Coumadin for A. fib History of Present Illness: 64-year-old female she has past medical history of atrial fibrillation. She takes Coumadin. Chest is history of coronary artery disease and CVA. She is instructed to come to the emergency department by her primary care physician Dr. Manuel. Patient has had one episode of bright red bloody emesis. She states that it was short-lived and resolve spontaneously. She did also report having some episodes of melanotic stools. Her primary care doctor knows about this and she's been off her Coumadin for 2 days. She has been having some symptoms of weakness. She was told by her PCP to come to the emergency department to get evaluated. Patient denies any symptoms of li ghtheadedness, orthopnea. She doesn't otherwise have any medical complaints. She wants to also be tested for covid 19. The ROS documented in this emergency department record has been reviewed and confirmed by me. Those systems with pertinent positive or negative responses have been documented in the HPI. All other systems are other negative and/or noncontributory. PHYSICAL EXAM: General Impression: Alert and oriented x3, not in acute distress HEENT: Normocephalic atraumatic, extra-ocular movements intact, pupils equal and reactive to light bilaterally, mucous membranes moist. Cardiovascular: Heart regular rate and rhythm Chest: Able to complete full sentences, no retractions, no tachypnea Abdomen: abdomen soft, non-tender, non-distended, no organomegaly Musculoskeletal: Pulses present and equal in all extremities, no peripheral edema Motor: no focal deficits noted Neurological: CN II-XII grossly intact, no focal motor or sensory deficits noted Skin: Intact with no visualized rashes Psych: Normal affect and mood Rectal: No gross blood, no melanotic stool ED course: 64-year-old female instructed by primary care physician to come to the emergency department for lab evaluation. She had one episode of GI bleed. She says she had a endoscopy performed several years ago and was told she had peptic ulcer. Vital signs Upon arrival are within acceptable limits. Patient wants to be tested for Covid 19. Stool occult blood is negative. Labs are unremarkable. Patient given monoclonal antibodies. Patient tolerated and by infusion well. Patient be discharged. Patient is not hypoxic. (Richard Núñez) - Related Data Home Medications Medication Instructions Recorded Confirmed Omeprazole 40 mg PO BID 12/17/15 10/27/20 Simvastatin [Zocor] 40 mg PO HS 12/17/15 10/27/20 Warfarin Sodium 5 mg PO DAILY 06/18/19 10/27/20 Albuterol Inhaler [Ventolin Hfa 2 puff INHALATION RT-QID PRN 10/27/20 10/27/20 Inhaler] HYDROcodone/APAP 7.5-325MG [[place] 1 tab PO TID PRN 10/27/20 10/27/20 7.5-325] Levothyroxine Sodium 88 mcg PO DAILY 10/27/20 10/27/20 Previous Rx's Medication Instructions Recorded Metoprolol Tartrate [Lopressor] 25 mg PO BID tab 06/26/19 Allergies Allergy/AdvReac Type Severity Reaction Status Date / Time mold Allergy Wheezing Verified 10/27/20 16:24 Review of Systems ROS Other: All systems not noted in ROS Statement are negative. <Kartik Mitchell - Last Filed: 10/27/20 16:01> ROS Other: All systems not noted in ROS Statement are negative. <Richard Núñez Angela - Last Filed: 10/27/20 21:47> ROS Statement: Those systems with pertinent positive or pertinent negative responses have been documented in the HPI. Past Medical History Past Medical History: Asthma, Coronary Artery Disease (CAD), CVA/TIA, GERD/Reflux Additional Past Medical History / Comment(s): back pain History of Any Multi-Drug Resistant Organisms: None Reported Past Surgical History: Orthopedic Surgery Additional Past Surgical History / Comment(s): carotid endarectomy, abdominal, h eart valve,left hip Past Psychological History: No Psychological Hx Reported Smoking Status: Current every day smoker Past Alcohol Use History: None Reported Past Drug Use History: None Reported - Past Family History Mother History Unknown: Yes Family Medical History: CVA/TIA <Kartik Mitchell - Last Filed: 10/27/20 16:01> General Exam Limitations: no limitations General appearance: alert, in no apparent distress Head exam: Present: atraumatic, normocephalic, normal inspection Eye exam: Present: normal appearance, PERRL, EOMI. Absent: scleral icterus, conjunctival injection, periorbital swelling Neck exam: Present: normal inspection. Absent: tenderness, meningismus, lymphadenopathy Respiratory exam: Present: normal lung sounds bilaterally. Absent: respiratory distress, wheezes, rales, rhonchi, stridor Cardiovascular Exam: Present: regular rate, normal rhythm, normal heart sounds. Absent: systolic murmur, diastolic murmur, rubs, gallop, clicks GI/Abdominal exam: Present: soft, normal bowel sounds. Absent: distended, tenderness, guarding, rebound, rigid Extremities exam: Present: normal inspection, full ROM, normal capillary refill. Absent: tenderness, pedal edema, joint swelling, calf tenderness Back exam: Present: normal inspection Neurological exam: Present: alert, oriented X3, CN II-XII intact Psychiatric exam: Present: normal affect, normal mood Skin exam: Present: warm, dry, intact, normal color. Absent: rash <Kartik Mitchell - Last Filed: 10/27/20 16:01> Course Vital Signs 10/27/20 10/27/20 10/27/20 14:42 17:00 18:00 Temperature 97.8 F Pulse Rate 75 68 Respiratory 18 18 16 Rate Blood Pressure 107/72 163/80 O2 Sat by Pulse 94 L 95 Oximetry 10/27/20 21:00 Temperature Pulse Rate 89 Respiratory 18 Rate Blood Pressure 166/95 O2 Sat by Pulse 98 Oximetry Medical Decision Making - Lab Data Result diagrams: 10/27/20 15:17 10/27/20 15:17 - Radiology Data Radiology results: report reviewed, image reviewed <Kartik Mitchell - Last Filed: 10/27/20 16:01> - Lab Data Result diagrams: 10/27/20 15:17 10/27/20 15:17 <Richard Núñez - Last Filed: 10/27/20 21:47> - Medical Decision Making 64-year-old female complaining of hematemesis times one day, she recently had her Coumadin dose increased by primary care. Labs: Hemoglobin 16.7 hematocrit 48.8 PT 12.9 and INR 1.2 a PTT 33.0 (Kartik Mitchell) - Lab Data Lab Results 10/27/20 10/27/20 10/27/20 Range/Units 15:17 15:17 15:17 WBC 3.9 (3.8-10.6) k/uL RBC 5.17 (3.80-5.40) m/uL Hgb 16.7 H (11.4-16.0) gm/dL Hct 48.8 H (34.0-46.0) % MCV 94.4 (80.0-100.0) fL MCH 32.3 (25.0-35.0) pg MCHC 34.2 (31.0-37.0) g/dL RDW 14.7 (11.5-15.5) % Plt Count 221 (150-450) k/uL MPV 10.3 Neutrophils % 59 % Lymphocytes % 24 % Monocytes % 11 % Eosinophils % 1 % Basophils % 3 % Neutrophils # 2.3 (1.3-7.7) k/uL Lymphocytes # 0.9 L (1.0-4.8) k/uL Monocytes # 0.4 (0-1.0) k/uL Eosinophils # 0.0 (0-0.7) k/uL Basophils # 0.1 (0-0.2) k/uL PT 12.9 H (9.0-12.0) sec INR 1.2 H (<1.2) APTT 33.0 H (22.0-30.0) sec Sodium 141 (137-145) mmol/L Potassium 4.1 (3.5-5.1) mmol/L Chloride 103 (98-107) mmol/L Carbon Dioxide 24 (22-30) mmol/L Anion Gap 14 mmol/L BUN 18 H (7-17) mg/dL Creatinine 0.61 (0.52-1.04) mg/dL Est GFR (CKD-EPI)AfAm >90 (>60 ml/min/1.73 sqM) Est GFR (CKD-EPI)NonAf >90 (>60 ml/min/1.73 sqM) Glucose 93 (74-99) mg/dL Calcium 9.7 (8.4-10.2) mg/dL Total Bilirubin 0.6 (0.2-1.3) mg/dL AST 54 H (14-36) U/L ALT 20 (4-34) U/L Alkaline Phosphatase 98 (38-126) U/L Troponin I (0.000-0.034) ng/mL Total Protein 8.3 H (6.3-8.2) g/dL Albumin 4.8 (3.5-5.0) g/dL Stool Occult Blood (Negative) Coronavirus (PCR) (Not Detectd) Blood Type Blood Type Recheck Bld Type Recheck Status Antibody Screen Spec Expiration Date 10/27/20 10/27/20 10/27/20 Range/Units 15:17 17:18 17:20 WBC (3.8-10.6) k/uL RBC (3.80-5.40) m/uL Hgb (11.4-16.0) gm/dL Hct (34.0-46.0) % MCV (80.0-100.0) fL MCH (25.0-35.0) pg MCHC (31.0-37.0) g/dL RDW (11.5-15.5) % Plt Count (150-450) k/uL MPV Neutrophils % % Lymphocytes % % Monocytes % % Eosinophils % % Basophils % % Neutrophils # (1.3-7.7) k/uL Lymphocytes # (1.0-4.8) k/uL Monocytes # (0-1.0) k/uL Eosinophils # (0-0.7) k/uL Basophils # (0-0.2) k/uL PT (9.0-12.0) sec INR (<1.2) APTT (22.0-30.0) sec Sodium (137-145) mmol/L Potassium (3.5-5.1) mmol/L Chloride (98-107) mmol/L Carbon Dioxide (22-30) mmol/L Anion Gap mmol/L BUN (7-17) mg/dL Creatinine (0.52-1.04) mg/dL Est GFR (CKD-EPI)AfAm (>60 ml/min/1.73 sqM) Est GFR (CKD-EPI)NonAf (>60 ml/min/1.73 sqM) Glucose (74-99) mg/dL Calcium (8.4-10.2) mg/dL Total Bilirubin (0.2-1.3) mg/dL AST (14-36) U/L ALT (4-34) U/L Alkaline Phosphatase (38-126) U/L Troponin I 0.014 (0.000-0.034) ng/mL Total Protein (6.3-8.2) g/dL Albumin (3.5-5.0) g/dL Stool Occult Blood Negative (Negative) Coronavirus (PCR) Detected A (Not Detectd) Blood Type Blood Type Recheck Bld Type Recheck Status Antibody Screen Spec Expiration Date 10/27/20 Range/Units 17:40 WBC (3.8-10.6) k/uL RBC (3.80-5.40) m/uL Hgb (11.4-16.0) gm/dL Hct (34.0-46.0) % MCV (80.0-100.0) fL MCH (25.0-35.0) pg MCHC (31.0-37.0) g/dL RDW (11.5-15.5) % Plt Count (150-450) k/uL MPV Neutrophils % % Lymphocytes % % Monocytes % % Eosinophils % % Basophils % % Neutrophils # (1.3-7.7) k/uL Lymphocytes # (1.0-4.8) k/uL Monocytes # (0-1.0) k/uL Eosinophils # (0-0.7) k/uL Basophils # (0-0.2) k/uL PT (9.0-12.0) sec INR (<1.2) APTT (22.0-30.0) sec Sodium (137-145) mmol/L Potassium (3.5-5.1) mmol/L Chloride (98-107) mmol/L Carbon Dioxide (22-30) mmol/L Anion Gap mmol/L BUN (7-17) mg/dL Creatinine (0.52-1.04) mg/dL Est GFR (CKD-EPI)AfAm (>60 ml/min/1.73 sqM) Est GFR (CKD-EPI)NonAf (>60 ml/min/1.73 sqM) Glucose (74-99) mg/dL Calcium (8.4-10.2) mg/dL Total Bilirubin (0.2-1.3) mg/dL AST (14-36) U/L ALT (4-34) U/L Alkaline Phosphatase (38-126) U/L Troponin I (0.000-0.034) ng/mL Total Protein (6.3-8.2) g/dL Albumin (3.5-5.0) g/dL Stool Occult Blood (Negative) Coronavirus (PCR) (Not Detectd) Blood Type B Positive Blood Type Recheck B Pos Bld Type Recheck Status No Antibody Screen NEGATIVE Spec Expiration Date 10/30/2020 - 2339 - Radiology Data Chest x-ray: Patchy air space disease is present peripherally in the right middle lung possibly left lower lobe. No evidence of pneumothorax or pleural effusion. Patient shows aortic valve replacement change. (Kartik Mitchell) Disposition <Kartik Mitchell - Last Filed: 10/27/20 16:01> Is patient prescribed a controlled substance at d/c from ED?: No Time of Disposition: 21:47 <Richard Núñez - Last Filed: 10/27/20 21:47> Clinical Impression: COVID-19 Disposition: HOME SELF-CARE Condition: Fair Instructions (If sedation given, give patient instructions): Viral Pneumonia (ED) Additional Instructions: Today you were evaluated for symptoms consistent with upper respiratory infection. Today you tested positive for Covid 19. Your are stable for discharge, however it is instructed to to seek immediate medical attention especially if you develop worsening symptoms especially respiratory distress. If possible, try to obtain a pulse oximeter and monitor your oxygen at home. In the meantime please remain in quarantine for 14 days. For any other questions please contact [facility] for here in emergency department or [facility] at [phone] Referrals: Gemini Manuel MD [Primary Care Provider] - 1-2 days
[2020-10-27 15:28] LABS: Basophils # (A) 0.1 k/uL (0-0.2); Basophils % (A) 3 %; Eosinophils % (A) 1 %; HCT 48.8 % (34.0-46.0); HGB 16.7 gm/dL (11.4-16.0); Lymphocytes # (A) 0.9 k/uL (1.0-4.8); Lymphocytes % (A) 24 %; MCH 32.3 pg (25.0-35.0); MCHC 34.2 g/dL (31.0-37.0); MCV 94.4 fL (80.0-100.0); Mean Platelet Volume 10.3; Monocytes # (A) 0.4 k/uL (0-1.0); Monocytes % (A) 11 %; Neutrophils # (A) 2.3 k/uL (1.3-7.7); Neutrophils % (A) 59 %; Platelet Count 221 k/uL (150-450); RBC 5.17 m/uL (3.80-5.40); RDW 14.7 % (11.5-15.5); WBC 3.9 k/uL (3.8-10.6)
[2020-10-27 15:39] LABS: INR 1.2 (<1.2); Prothrombin Time 12.9 sec (9.0-12.0)
[2020-10-27 15:45] LABS: ALT 20 U/L (4-34); AST 54 U/L (14-36); African American GFR (CKD) >90 (>60 ml/min/1.73 sqM); Albumin 4.8 g/dL (3.5-5.0); Alkaline Phosphatase 98 U/L (38-126); Anion Gap 14 mmol/L; Blood Urea Nitrogen 18 mg/dL (7-17); Calcium 9.7 mg/dL (8.4-10.2); Carbon Dioxide 24 mmol/L (22-30); Chloride 103 mmol/L (98-107); Glucose 93 mg/dL (74-99); Non-African American GFR(CKD) >90 (>60 ml/min/1.73 sqM); Potassium 4.1 mmol/L (3.5-5.1); Sodium 141 mmol/L (137-145); Total Bilirubin 0.6 mg/dL (0.2-1.3); Total Protein 8.3 g/dL (6.3-8.2)
--- NOTE | 2020-10-27 15:58 | XR ---
EXAMINATION TYPE: XR chest 2V DATE OF EXAM: 10/27/2020 COMPARISON: Chest x-ray 06/23/2019 HISTORY: Cough and pain TECHNIQUE: Frontal and lateral views of the chest are obtained. FINDINGS: There is interval improved visualization of the left hemidiaphragm. Patient is post median sternotomy and the heart is small. Aorta is dense. There is a spinal curvature. Patchy airspace dise ase is present peripherally in the right midlung, possibly left lower lobe. No evident pneumothorax o r pleural effusion. Patient shows aortic valve replacement change. Prominent lung volumes suggest und erlying COPD. There are possible coronary artery calcifications. Apical pleural thickening is stable . IMPRESSION: Correlate for possible pneumonia.
[2020-10-27] MEDS ORDERED: HYDROcodone/APAP 7.5-325MG 1 EACH TAB PO ONE (18:27)
[2020-10-27] MEDS ORDERED: BAMLANIVIMAB 700 MG in SODIUM CHLORIDE 0.9% 50 ML IVPB ONE (20:45)
[2020-10-27 21:33] VITALS: RESP 18
[2020-10-27 23:20] VITALS: BP 159/92; PULSE 93; TEMP 98.8
== END 2020-10-27 23:20 | disposition home or self-care (01) ==
LOC: EC 12:56
DX: U07.1 COVID-19 (principal); K92.0 Hematemesis; J45.909 Unspecified asthma, uncomplicated; K21.9 Gastro-esophageal reflux disease without esophagitis; I25.10 Atherosclerotic heart disease of native coronary artery without angina pectoris; F17.200 Nicotine dependence, unspecified, uncomplicated; Z86.73 Personal history of transient ischemic attack (TIA), and cerebral infarction without residual deficits; Z79.899 Other long term (current) drug therapy
CPT/HCPCS: 36415; 86900; 86901; 80053; 84484; 85025; 85610; 85730; 86850; 82272; 87635; 71046; 99284; 96365; Q0239

== ENCOUNTER → 2021-04-09 | Outpatient (CLI) | payer MEDICARE ==
--- NOTE | 2021-04-09 12:26 | XR ---
EXAMINATION TYPE: XR Hip Complete LT DATE OF EXAM: 04/09/2021 COMPARISON: NONE HISTORY: left hip pain TECHNIQUE: One view submitted. FINDINGS: There is postsurgical change in near anatomic alignment. There is soft tissue edema and emphysema. S oft tissue tissue ossification noted. IMPRESSION: 1. Postoperative change. Appears in near-anatomic alignment.
== END | disposition home or self-care (01) ==
LOC: RADXRMAIN 11:45
PROVIDERS: ATTEND Internal Medicine
DX: M25.552 Pain in left hip (principal); Z98.890 Other specified postprocedural states
CPT/HCPCS: 73502

== ENCOUNTER 2022-01-19 09:28 | Emergency (ER) | payer MEDICARE ==
[2022-01-19 10:03] VITALS: BP 137/92; PULSE 82; RESP 20; TEMP 98.2
[2022-01-19] MEDS ORDERED: MORPHINE SULFATE 2 MG/ML SYRINGE IM STA (10:27)
--- NOTE | 2022-01-19 10:49 | XR ---
Left hip HISTORY: Pain 2 views the left hip correlated to prior exam dated 04/09/2021 Patient is status post left hip arthroplasty. Heterotopic new bone formation is present. Alignment an d appearance are stable. No fracture or dislocation. Probable vascular calcifications are present wit hin the pelvis. IMPRESSION: No acute abnormality.
--- NOTE | 2022-01-19 10:59 | ED ---
Extremity Problem HPI - General Chief complaint: Extremity Problem,Nontraumatic Stated complaint: L leg/thigh Pain Time Seen by Provider: 01/19/22 10:09 Source: patient Mode of arrival: ambulatory Limitations: no limitations - History of Present Illness Initial comments: Patient is a 66-year-old female presents to the emergency room with complaints of increased left hip pain over the last 2 weeks. She reports that she had mild left hip pain since a fall and fracture in [address] Toribio surgically repair replaced her hip. She was previously utilizing Tylenol can to control the pain well but over the last 2 weeks has had an increase in pain requiring the use of [place] from her primary care provider with poor control of her pain. She has began using her cane as well due to her pain in her range of motion. She denies any recent falls, trauma, joint swelling, or redness. She is a past medical history significant for coronary artery disease, CVA, asthma and GERD. Her [id number] is at the bedside and reports some mild memory impairment from her stroke otherwise denies any other neurological deficits. She denies any other complaints or concerns at this time. - Related Data Home Medications Medication Instructions Recorded Confirmed Omeprazole 40 mg PO BID 12/17/15 10/27/20 Simvastatin [Zocor] 40 mg PO HS 12/17/15 10/27/20 Warfarin Sodium 5 mg PO DAILY 06/18/19 10/27/20 Albuterol Inhaler [Ventolin Hfa 2 puff INHALATION RT-QID PRN 10/27/20 10/27/20 Inhaler] HYDROcodone/APAP 7.5-325MG [[place] 1 tab PO TID PRN 10/27/20 10/27/20 7.5-325] Levothyroxine Sodium 88 mcg PO DAILY 10/27/20 10/27/20 Previous Rx's Medication Instructions Recorded Metoprolol Tartrate [Lopressor] 25 mg PO BID tab 06/26/19 methylPREDNISolone Dose Pack 4 mg PO DIRECTED #21 tab 01/19/22 [Medrol Dose Pack] Allergies Allergy/AdvReac Type Severity Reaction Status Date / Time mold Allergy Wheezing Verified 01/19/22 10:03 Review of Systems ROS Statement: Those systems with pertinent positive or pertinent negative responses have been documented in the HPI. ROS Other: All systems not noted in ROS Statement are negative. Past Medical History Past Medical History: Asthma, Coronary Artery Disease (CAD), CVA/TIA, GERD/Reflux Additional Past Medical History / Comment(s): back pain History of Any Multi-Drug Resistant Organisms: None Reported Past Surgical History: Orthopedic Surgery Additional Past Surgical History / Comment(s): carotid endarectomy, abdominal, heart valve,left hip Past Psychological History: No Psychological Hx Reported Smoking Status: Current every day smoker Past Alcohol Use History: None Reported Past Drug Use History: None Reported - Past Family History Mother History Unknown: Yes Family Medical History: CVA/TIA General Exam Limitations: no limitations Head exam: Present: atraumatic, normocephalic, normal inspection Eye exam: Present: normal appearance, PERRL, EOMI. Absent: scleral icterus, conjunctival injection, periorbital swelling ENT exam: Present: normal exam, mucous membranes moist Neck exam: Present: normal inspection. Absent: tenderness, meningismus, lymphadenopathy Respiratory exam: Absent: respiratory distress, accessory muscle use Left Hip exam: Present: normal inspection, full ROM, tenderness. Absent: swelling, ecchymosis, deformity, crepitus, dislocation, external rotation, internal rotation, shortening Gait: observed and limited by pain Neurological exam: Present: alert, oriented X3, CN II-XII intact Psychiatric exam: Present: normal affect, normal mood Skin exam: Present: warm, dry, intact, normal color. Absent: rash Course Vital Signs 01/19/22 09:59 Temperature 98.2 F Pulse Rate 82 Respiratory 20 Rate Blood Pressure 137/92 O2 Sat by Pulse 96 Oximetry - Reevaluation(s) Reevaluation #1: Plan morphine tolerated well without any significant change in pain. Negative x- ray discussed with patient and [id number] at bedside. Given presentation and normal imaging will treat empirically for bursitis. Will give IM Solu-Medrol today and start on Medrol Dosepak tomorrow. Discussed follow-up with primary care provider and orthopedist previously saw Dr. Toribio. Recommend follow-up with Dr. Toribio. Time: 11:27 Medical Decision Making - Medical Decision Making Given artificial joint and increase in pain will check x-ray of left hip. Will give IM morphine for severe pain and monitor response. - Radiology Data Radiology results: report reviewed, image reviewed 2 left hip x-ray shows no acute abnormalities. Disposition Clinical Impression: Bursitis of left hip Disposition: HOME SELF-CARE Condition: Fair Instructions (If sedation given, give patient instructions): Hip Bursitis (ED) Additional Instructions: Complete steroid course as prescribed. Follow-up with primary care provider along with orthopedist if no improvement in hip pain. Return parameters to the emergency room discussed. Please return to the Emergency Department if symptoms worsen or any other concerns. Prescriptions: methylPREDNISolone Dose Pack [Medrol Dose Pack] 4 mg PO DIRECTED #21 tab Is patient prescribed a controlled substance at d/c from ED?: No Referrals: Gemini Manuel MD [Primary Care Provider] - 1-2 days Art Toribio MD [STAFF PHYSICIAN] - 1-2 days Time of Disposition: 11:29
[2022-01-19] MEDS ORDERED: methylPREDNISolone SOD SUCCI 125 MG/2 ML VIAL IM ONE (11:24)
== END 2022-01-19 11:50 | disposition home or self-care (01) ==
LOC: EC 09:28
DX: M70.72 Other bursitis of hip, left hip (principal); I25.10 Atherosclerotic heart disease of native coronary artery without angina pectoris; J45.909 Unspecified asthma, uncomplicated; K21.9 Gastro-esophageal reflux disease without esophagitis; F17.200 Nicotine dependence, unspecified, uncomplicated; Z86.73 Personal history of transient ischemic attack (TIA), and cerebral infarction without residual deficits; Z79.51 Long term (current) use of inhaled steroids; Z79.01 Long term (current) use of anticoagulants; Z79.890 Hormone replacement therapy; Z79.899 Other long term (current) drug therapy
CPT/HCPCS: 73502; 99283; 96372 ×2; J2930; J2270